=== PATIENT | female | born 2000 | race Hispanic/Latino ===

== ENCOUNTER 2019-05-31 13:04 | Emergency (ER) | payer OTHER, SELFPAY ==
--- OUTSIDE RECORDS SUMMARY | 2019-05-31 13:07 | XMS REPORT | Summary of Care ---
:2000 Author Organization [facility] Address [address] [place] [address] Care Team Providers Name Role Phone Maryam Bennett Primary Care Provider Reason for Visit Reason Comments Care Encounter Details Date Type Department Care Team Description 04/16/2019 [facility] Supervision of high risk in first trimester (Primary Dx); Visit [facility] Nausea and vomiting during [address] [place], [place] [address] [place], [place] [phone] Allergies No Known Allergiesdocumented as of this encounter (statuses as of 04/16/2019) Medications Medication Sig Dispensed Refills Start Date End Date Status PNV 67-iron Take 1 capsule 30 capsule 11 04/16/2019 Active ps-folate no.1-dha by mouth (VITAFOL ULTRA) 29 daily. mg iron- 1 mg-200 mg CapIndications: Supervision of high risk in first trimester proMETHazine 25 mg Take 1 tablet 30 tablet 3 04/16/2019 Active tabletIndications: by mouth every Nausea and 4 (four) hours vomiting during as needed for Nausea and Vomiting (N/V). vit Take by 0 04/16/2019 Discontinued calc,iron,folic mouth. ( VITAMIN ORAL) documented as of this encounter (statuses as of 04/16/2019) Active Problems Problem Noted Date Rubella non-immune status, antepartum 03/20/2019 Susceptible to varicella (non-immune), currently 03/20/2019 BMI 21.0-21.9, adult 03/19/2019 Supervision of high risk in first trimester 03/19/2019 Estimated Date of Delivery Comments Yes 11/01/2019 Based on last menstrual period of 01/25/2019 (Exact Date) documented as of this encounter (statuses as of 04/16/2019) Immunizations Name Administration Dates Next Due Influenza Virus Vaccine Quad .5 mL IM 6+ MO 03/19/2019 documented as of this encounter Social History Tobacco Use Types Packs/Day Years Used Date Never Smoker Smokeless Tobacco: Never Used Alcohol Use Drinks/Week oz/Week Comments Never Alcohol Habits Answer Date Recorded How often do you have a drink containing alcohol? Never 03/19/2019 How many drinks containing alcohol do you have on a typical Not asked day when you are drinking? How often do you have six or more drinks on one occasion? Not asked Estimated Date of Delivery Comments Yes 11/01/2019 Based on last menstrual period of 01/25/2019 (Exact Date) Sex Assigned at Date Recorded Not on file Job Start Date Occupation Industry Not on file Not on file Not on file Travel History Travel Start Travel End No recent travel history available. documented as of this encounter Last Filed Vital Signs Vital Sign Reading Time Taken Comments Blood Pressure 111/65 04/16/2019 9:43 AM INTERN RETAIL Pulse 83 04/16/2019 9:43 AM INTERN RETAIL Temperature - - Respiratory Rate 16 04/16/2019 9:43 AM INTERN RETAIL Oxygen Saturation - - Inhaled Oxygen Concentration - - Weight 52.8 kg (116 lb 6 oz) 04/16/2019 9:43 AM INTERN RETAIL Height 154.9 cm (5' 1") 04/16/2019 9:43 AM INTERN RETAIL Body Mass Index 21.99 04/16/2019 9:43 AM INTERN RETAIL documented in this encounter Progress Notes Maryam Bennett, DIRECTOR OF BROADCAST - 04/16/2019 9:30 AM CST Chief complaint: Chief Complaint Patient presents with Care HPI Loida Oakes is a 18 year old female is a @ 11w4d here for visit. Patient's last menstrual period was 01/25/2019 (exact date). Estimated Date of Delivery: 11/01/19 Pt complains of daily nausea and vomiting, was taking a medication from [place] but not helping. She is taking PNV. She does not yet endorse FM. She denies any ctx/cramping, VB , LOF, FREY, visual disturbance, vaginal discharge or dysuria. She denies any foreign travel. She also denies any physical, sexual or emotional abuse. Histories OB History Para Term AB Living 1 SAB TAB Ectopic Multiple Live Births # Outcome Date GA Lbr Aaron/2nd Weight Sex Delivery Anes PTL Lv 1 Current No past medical history on file. Family History Problem Relation Age of Onset No Significant Medical Problems Mother High cholesterol Father No Significant Medical Problems Sister No Significant Medical Problems Brother No Significant Medical Problems Maternal Aunt No Significant Medical Problems Maternal Uncle No Significant Medical Problems Paternal Aunt No Significant Medical Problems Paternal Uncle No Significant Medical Problems Maternal Grandmother No Significant Medical Problems Maternal Grandfather No Significant Medical Problems Paternal Grandmother No Significant Medical Problems Paternal Grandfather Family Status Relation Name Status Mo Alive Fa Alive Sis Alive Bro Alive MAunt Alive MUnc Alive PAunt Alive PUnc Alive MGMo Alive MGFa Alive PGMo Alive PGFa Alive No past surgical history on file. Social History Socioeconomic History Marital status: Single Spouse name: Not on file Number of children: Not on file Years of education: Not on file Highest education level: Not on file Occupational History Not on file Social Needs Financial resource strain: Not on file Food insecurity: Worry: Not on file Inability: Not on file Transportation needs: Medical: Not on file Non-medical: Not on file Tobacco Use Smoking status: Never Smoker Smokeless tobacco: Never Used Substance and Sexual Activity Alcohol use: Never Frequency: Never Drug use: Never Sexual activity: Yes Partners: Male control/protection: None Comment: last sexual intercourse 03/14/2019 Lifestyle Physical activity: Days per week: Not on file Minutes per session: Not on file Stress: Not on file Relationships Social connections: Talks on phone: Not on file Gets together: Not on file Attends samaritan service: Not on file Active member of club or organization: Not on file Attends meetings of clubs or organizations: Not on file Relationship status: Not on file Intimate partner violence: Fear of current or ex partner: Not on file Emotionally abused: Not on file Physically abused: Not on file Forced sexual activity: Not on file Other Topics Concern Not on file Social History Narrative Sikh preference is none. Patient lives with partner. Patient has 1 cat, partner does litter box. Social History Substance and Sexual Activity Sexual Activity Yes Partners: Male control/protection: None Comment: last sexual intercourse 03/14/2019 Labs No new labs and I have reviewed the patient's labs. Radiology Radiology pending. Allergies Loida has No Known Allergies. Medications Loida has a current medication list which includes the following prescription(s) : pnv 67-iron ps-folate no.1-dha and promethazine. Review of Systems Constitutional: Negative for appetite change, fatigue and fever. Eyes: Negative for visual disturbance. Respiratory: Negative. Cardiovascular: Negative for palpitations and leg swelling. Gastrointestinal: Positive for nausea and vomiting. Negative for abdominal pain , constipation and diarrhea. Genitourinary: Negative. Negative for dysuria, vaginal bleeding, vaginal discharge and pelvic pain. Musculoskeletal: Negative. Skin: Negative for rash. Neurological: Negative for dizziness, light-headedness and headaches. Psychiatric/Behavioral: Negative. BP 111/65 (BP Location: Right arm, Patient Position: Sitting, BP CUFF SIZE: Adult Medium) | Pulse 83 | Resp 16 | Ht 5' 1" (1.549 m) | Wt 116 lb 6 oz ( 52.8 kg) | LMP 01/25/2019 (Exact Date) | BMI 21.99 kg/m Pregravid BMI: 20.8 Physical Exam Vitals reviewed. Constitutional: She is oriented to person, place, and time. She appears well- developed and well-nourished. See flowsheet Cardiovascular: No peripheral edema present. Pulmonary/Chest: Normal inspiratory effort. Abdominal: Abdomen is soft. Neuro/Psychiatric: She has a normal mood and affect. She is oriented to person, place, and time. Skin: Skin normal. Assessment/Plan 1. Supervision of high risk in first trimester 11w4d Dating and NT scan next week - POCT URINALYSIS W SPECIFIC GRAVITY - PNV 67-iron ps-folate no.1-dha (VITAFOL ULTRA) 29 mg iron- 1 mg-200 mg Cap; Take 1 capsule by mouth daily. Dispense: 30 capsule; Refill: 11 2. Nausea and vomiting during Home remedies reviewed and Rx sent. Instructed to take OTC vitamin B6 and doxylamine BID. Only take promethazine PRN for breakthrough N/V. - proMETHazine 25 mg tablet; Take 1 tablet by mouth every 4 (four) hours as needed for Nausea and Vomiting (N/V). Dispense: 30 tablet; Refill: 3 Return to clinic in 4 weeks. Reviewed patient instructions and provided printed copy. at 11w4d This visit did not involve counseling and coordination that comprised more than 50% of the visit time. documented in this encounter Plan of Treatment Date Type Specialty Care Team Description 04/24/2019 Engine Cowling Installer Visit Maternal Medicine 04/24/2019 Engine Cowling Installer Visit [facility]/Pedi, [facility] 05/14/2019 Routine Visit [facility] Maryam Bennett FNP [address] [place] [address] Health Maintenance Due Date Last Done Comments WELL CARE VISIT: 12-21 YEARS 2011 (yearly) HPV VACCINES (1 - Female 2-dose 03/09/2020 Postponed from 07/09/2010 series) ( or ) MENINGOCOCCAL B VACCINES (1 of 2 03/18/2020 Postponed from 07/09/2009 - Risk Bexsero 2-dose series) ( or ) CHLAMYDIA SCREENING 03/19/2020 03/19/2019 DTaP,Tdap,and Td Vaccines (1 - 03/19/2020 Postponed from 07/09/2010 Tdap) (Alternative Guidelines) INFLUENZA VACCINE Completed 03/19/2019 MENINGOCOCCAL VACCINE Aged Out No longer eligible based on patient's age to complete this topic PNEUMOCOCCAL 0-64 YEARS COMBINED Aged Out No longer eligible based on SERIES patient's age to complete this topic VARICELLA VACCINES Discontinued documented as of this encounter Procedures Procedure Name Priority Date/Time Associated Diagnosis Comments POCT URINALYSIS Routine 04/16/2019 9:48 AM Supervision of high Results for this INTERN RETAIL risk in procedure are in first trimester the results section. documented in this encounter Results POCT URINALYSIS W SPECIFIC GRAVITY (04/16/2019 9:48 AM INTERN RETAIL) POCT U SP GRAV . 1.005 - 1.025 mg/dl POCT PH U . 5 - 8 mg/dl POCT U LEUK EST . Negative - Negative POCT U NIT . Negative - Negative POCT U PROT trace Negative - Negative POCT U GLU neg Negative - Negative POCT U KETONE . Negative - Negative POCT U UROBILI . 0.2 - 1 mg/dl POCT U BILI . Negative - Negative POCT U BLD . Negative - Negative POCT U COLOR POCT U APPEAR Specimen Urine - URINE, CLEAN CATCH documented in this encounter Visit Diagnoses Diagnosis Supervision of high risk in first trimester - Primary Unspecified high-risk Nausea and vomiting during documented in this encounter Insurance Payer Benefit Plan / Subscriber ID Effective Dates Phone Address Type Group [facility] xxxxxxxxx 2019-Present Medicaid COMM PLAN - MANAGED MEDICAID ([place]) Appt [address] [place] [address] documented as of this encounter
--- OUTSIDE RECORDS SUMMARY | 2019-05-31 13:07 | XMS REPORT | Summary of Care ---
:1999 Author Organization [facility] Address [address] [place] [address] Care Team Providers Name Role Phone Maryam Bennett Primary Care Provider Reason for Visit Reason Comments LAB WORK Encounter Details Date Type Department Care Team Description 04/24/2019 Tavern Car Attendant Visit [facility] Chapito Stoddard MD [address] [place] [address] Genetic screening [facility]/Pedi, Pea-Rmchp (Primary Dx) [address] [place] [address] Allergies No Known Allergiesdocumented as of this encounter (statuses as of 04/24/2019) Medications Medication Sig Dispensed Refills Start Date End Date Status PNV 67-iron ps-folate Take 1 capsule by 30 capsule 11 04/16/2019 Active no.1-dha (VITAFOL mouth daily. ULTRA) 29 mg iron- 1 mg-200 mg CapIndications: Supervision of high risk in first trimester proMETHazine 25 mg Take 1 tablet by 30 tablet 3 04/16/2019 Active tabletIndications: mouth every 4 Nausea and vomiting (four) hours as during needed for Nausea and Vomiting (N/V). documented as of this encounter (statuses as of 04/24/2019) Active Problems Problem Noted Date Rubella non-immune status, antepartum 03/20/2019 Susceptible to varicella (non-immune), currently 03/20/2019 BMI 21.0-21.9, adult 03/19/2019 Supervision of high risk in first trimester 03/19/2019 Estimated Date of Delivery Comments Yes 11/01/2019 Based on last menstrual period of 01/25/2019 (Exact Date) documented as of this encounter (statuses as of 04/24/2019) Immunizations Name Administration Dates Next Due Influenza [...] of this encounter Last Filed Vital Signs Not on filedocumented in this encounter Plan of Treatment Date Type Specialty Care Team Description 05/14/2019 Routine Visit [facility] Maryam Bennett, SPECIAL EDUCATION PROFESSOR [address] [place] [address] [phone] Name Type Priority Associated Diagnoses Order Schedule FIRST TRIMESTER TRISOMY SCRN LAB Routine Genetic screening Ordered: 2019 Health Maintenance Due Date Last Done Comments HPV VACCINES (1 - Female 2-dose 03/09/2020 [...] to complete this topic VARICELLA VACCINES Discontinued WELL CARE VISIT: 12-21 YEARS Discontinued (yearly) documented as of this encounter Results Not on filedocumented in this encounter Visit Diagnoses Diagnosis Genetic screening - Primary Other genetic screening documented in this encounter Insurance Payer Benefit Plan / Subscriber ID Effective Dates Phone Address Type Group [facility] xxxxxxxxx 2019-Present Medicaid COMM PLAN - MANAGED MEDICAID documented as of this encounter
--- OUTSIDE RECORDS SUMMARY | 2019-05-31 13:07 | XMS REPORT | Summary of Care ---
:1999 Author Organization [facility] Address [address] [place] [address] Care Team Providers Name Role Phone Maryam Bennett [facility] Primary Care Provider Reason for Visit Reason Comments Other dentist medical clearance letter Encounter Details Date Type Department Care Team Description 05/13/2019 Telephone [facility]- Maryam Bennett, Other (dentist medical [facility] clearance letter) [address] [facility] [address] [place], [place] [id number] Allergies No Known Allergiesdocumented as of this encounter (statuses as of 05/14/2019) Medications Medication Sig Dispensed Refills Start Date [...] as of this encounter (statuses as of 05/14/2019) Active Problems Problem Noted Date Rubella non-immune status, antepartum 03/20/2019 Susceptible to varicella (non-immune), currently 03/20/2019 BMI 21.0-21.9, adult 03/19/2019 Supervision of high risk in second trimester 03/19/2019 Estimated Date of Delivery Comments Yes 11/01/2019 Based on last menstrual period of 01/25/2019 (Exact Date) documented as of this encounter (statuses as of 05/14/2019) Immunizations Name Administration Dates Next Due Influenza [...] filedocumented in this encounter Plan of Treatment Health Maintenance Due Date Last Done Comments [...] Results Not on filedocumented in this encounter Insurance Payer Benefit Plan / Subscriber ID Effective Dates Phone Address Type Group [facility] xxxxxxxxx 2019-Present Medicaid COMM PLAN - MANAGED MEDICAID documented as of this encounter
--- OUTSIDE RECORDS SUMMARY | 2019-05-31 13:07 | XMS REPORT | Summary of Care ---
:1999 Author Organization [facility] Address [address] [place] [address] Care Team Providers Name Role Phone Maryam Bennett Primary Care Provider Reason for Visit Reason Comments LAB WORK Encounter Details Date Type Department Care Team Description 04/24/2019 Squadron Worker Visit [facility] Chapito Stoddard MD [address] [place] [address] Genetic screening [facility]/Pedi, Pea-Rmchp (Primary Dx) [address] [place] [address] Allergies No Known Allergiesdocumented as [...] 05/14/2019 Routine Visit [facility] Maryam Bennett, BODY WORK AUTO TRIMMER [address] [place] [address] [phone] Name Type Priority Associated Diagnoses Date/Time FIRST TRIMESTER TRISOMY LAB Routine Genetic screening 04/24/2019 11:38 AM COIL INSPECTOR SCRN Health Maintenance Due Date Last Done Comments [...] ID Effective Dates Phone Address Type Group [facility] xxxxxxxxx 2019-Present Medicaid COMM PLAN - MANAGED MEDICAID (Home) Appt [address] [place] [address] documented as of this encounter
--- OUTSIDE RECORDS SUMMARY | 2019-05-31 13:08 | XMS REPORT | Summary of Care ---
:1999 Author Organization [facility] Address [address] [place] [address] Care Team Providers Name Role Phone Maryam Bennett Primary Care Provider Reason for Referral (Routine) Status Reason Specialty Diagnoses / Referred By Referred To Procedures Contact Contact New Request Maternal Diagnoses Supervision of high risk in second trimester Maryam Bennett Medicine Procedures CONSULT MATERNAL MEDICINE ULTRASOUND Preferred Location: [facility] [address] [address] Reason for Visit Reason Comments Care Encounter Details Date Type Department Care Team Description 05/14/2019 Routine [facility]- Maryam Bennett Supervision of high risk in second trimester (Primary Dx); Visit [facility] Nausea and vomiting during ; [address] Susceptible to varicella (non-immune), currently ; [place], [place] Rubella non-immune status, antepartum [address] [place], [place] [phone] [address] Allergies No Known Allergiesdocumented as of [...] Sign Reading Time Taken Comments Blood Pressure 103/64 05/14/2019 8:08 AM CABLE SPLICING TECHNICIAN Pulse 83 05/14/2019 8:08 AM CABLE SPLICING TECHNICIAN Temperature 36.4 C (97.6 F) 05/14/2019 8:08 AM CABLE SPLICING TECHNICIAN Respiratory Rate 16 05/14/2019 8:08 AM CABLE SPLICING TECHNICIAN Oxygen Saturation - - Inhaled Oxygen Concentration - - Weight 53.1 kg (117 lb 2 oz) 05/14/2019 8:08 AM CABLE SPLICING TECHNICIAN Height 154.9 cm (5' 1") 05/14/2019 8:08 AM CABLE SPLICING TECHNICIAN Body Mass Index 22.13 05/14/2019 8:08 AM CABLE SPLICING TECHNICIAN documented in this encounter Progress Notes Maryam Bennett FNP - 05/14/2019 8:00 AM CST Chief complaint: Chief Complaint Patient presents with Care HPI Loida Oakes is a 18 year old female is a @ 15w4d here for visit. Patient's last menstrual period was 01/25/2019 (exact date). Estimated Date of Delivery: 11/01/19 Today she denies any complaints or concerns. She is taking PNV. She does not [...] file Gets together: Not on file Attends congregational service: Not on file Active member of [...] Concern Not on file Social History Narrative Episcopalian preference is none. Patient lives with partner. Patient has 1 cat, partner does litter box. Social History Substance and Sexual Activity Sexual Activity Yes Partners: Male control/protection: None Comment: last sexual intercourse 03/14/2019 Labs I have reviewed the patient's labs. and Labs are pending. Radiology Radiology pending. Allergies Loida has No Known Allergies. Medications Loida has a current medication list which includes the following prescription(s) : pnv 67-iron ps-folate no.1-dha and promethazine. Review of Systems Constitutional: Negative for appetite change, fatigue and fever. Eyes: Negative for visual disturbance. Respiratory: Negative. Cardiovascular: Negative for palpitations and leg swelling. Gastrointestinal: Positive for nausea. Negative for abdominal pain, constipation , diarrhea and vomiting. Genitourinary: Negative. Negative for dysuria, vaginal bleeding, vaginal discharge and pelvic pain. Musculoskeletal: Negative. Skin: Negative for rash. Neurological: Negative for dizziness, light-headedness and headaches. Psychiatric/Behavioral: Negative. BP 103/64 (BP Location: Right arm, Patient Position: Sitting, BP CUFF SIZE: Adult Medium) | Pulse 83 | Temp 36.4 C (97.6 F) (Oral) | Resp 16 | Ht 5 ' 1" (1.549 m) | Wt 117 lb 2 oz (53.1 kg) | LMP 01/25/2019 (Exact Date) | BMI 22.13 kg/m Pregravid BMI: 20.8 Physical Exam Vitals [...] Assessment/Plan 1. Supervision of high risk in second trimester 15w4d MSAFP today Anatomy scan ordered - CONSULT MATERNAL MEDICINE ULTRASOUND Preferred Location: [place] - [facility]PHA FETOPROTEIN-MATERNAL SER - POCT URINALYSIS W SPECIFIC GRAVITY 2. Nausea and vomiting during Vomiting better, still nauseous Managed with promethazine Gaining weight 3. Susceptible to varicella (non-immune), currently Offer vaccine . 4. Rubella non-immune status, antepartum Offer vaccine . Return to clinic in 4 weeks. Reviewed patient instructions and provided printed copy. at 15w4d This visit did not involve counseling and coordination that comprised more than 50% of the visit time. documented in this encounter Plan of Treatment Date Type Specialty Care Team Description 06/12/2019 Routine Visit [facility] Maryam Bennett FNP [address] [place] [address] [phone] Name Type Priority Associated Diagnoses Order Schedule ALPHA LAB Routine Supervision of high risk Ordered: 05/14/2019 FETOPROTEIN-MATERNAL in second SER trimester Health Maintenance Due Date Last Done Comments [...] Discontinued (yearly) documented as of this encounter Procedures Procedure Name Priority Date/Time Associated Diagnosis Comments POCT URINALYSIS Routine 05/14/2019 8:14 AM Supervision of high Results for this CABLE SPLICING TECHNICIAN risk in procedure are in second trimester the results section. documented in this encounter Results POCT URINALYSIS W SPECIFIC GRAVITY (05/14/2019 8:14 AM CABLE SPLICING TECHNICIAN) POCT U SP GRAV . 1.005 - 1.025 mg/dl POCT PH U . 5 - 8 mg/dl POCT U LEUK EST . Negative - Negative POCT U NIT . Negative - Negative POCT U PROT trace Negative - Negative POCT U GLU negative Negative - Negative POCT U KETONE . Negative - Negative POCT U UROBILI . 0.2 - 1 mg/dl POCT U BILI . Negative - Negative POCT U BLD . Negative - Negative POCT U COLOR POCT U APPEAR Specimen Urine - URINE, CLEAN CATCH documented in this encounter Visit Diagnoses Diagnosis Supervision of high risk in second trimester - Primary Unspecified high-risk Nausea and vomiting during Susceptible to varicella (non-immune), currently Supervision of other high-risk Rubella non-immune status, antepartum Other specified complication, antepartum documented in this encounter Insurance Payer Benefit Plan / Subscriber ID Effective Dates Phone Address Type Group [facility] [place] xxxxxxxxx 2019-Present Medicaid COMM PLAN - MANAGED MEDICAID documented as of this encounter
--- OUTSIDE RECORDS SUMMARY | 2019-05-31 13:08 | XMS REPORT | Summary of Care ---
:2000 Author Organization [facility] Address [address] [place] [address] Care Team Providers Name Role Phone Maryam Bennett Primary Care Provider Reason for Referral (Routine) Status Reason Specialty Diagnoses / Referred By Referred To Procedures Contact Contact New Request Maternal Diagnoses Supervision of high risk in second trimester Maryam Bennett Medicine Procedures CONSULT MATERNAL MEDICINE ULTRASOUND Preferred Location: [facility] [address] [place] [address] Reason for Visit Reason Comments Care Encounter Details Date Type Department Care Team Description 05/14/2019 Routine [facility]- Maryam Bennett Supervision of high risk in second trimester (Primary Dx); Visit [facility] Nausea and vomiting during ; [address] Susceptible to varicella (non-immune), currently ; [place], [place] [address] Rubella non-immune status, antepartum [id number] [place], [place] [phone] [address] Allergies No Known Allergiesdocumented as of [...] Comments Blood Pressure 103/64 05/14/2019 8:08 AM DINKEY MOTOR OPERATOR Pulse 83 05/14/2019 8:08 AM DINKEY MOTOR OPERATOR Temperature 36.4 C (97.6 F) 05/14/2019 8:08 AM DINKEY MOTOR OPERATOR Respiratory Rate 16 05/14/2019 8:08 AM DINKEY MOTOR OPERATOR Oxygen Saturation - - Inhaled Oxygen Concentration - - Weight 53.1 kg (117 lb 2 oz) 05/14/2019 8:08 AM DINKEY MOTOR OPERATOR Height 154.9 cm (5' 1") 05/14/2019 8:08 AM DINKEY MOTOR OPERATOR Body Mass Index 22.13 05/14/2019 8:08 AM DINKEY MOTOR OPERATOR documented in this encounter Progress Notes Maryam [...] file Gets together: Not on file Attends yazdanism service: Not on file Active member of [...] Concern Not on file Social History Narrative Presybeterian preference is none. Patient lives with partner. [...] - CONSULT MATERNAL MEDICINE ULTRASOUND Preferred Location: [place] - ALPHA FETOPROTEIN-MATERNAL SER - POCT URINALYSIS [...] Routine Visit OB Satellites Maryam Bennett FNP [address] [place] [address] [phone] Name Type Priority Associated Diagnoses Date/Time ALPHA LAB Routine Supervision of high risk 05/14/2019 8:52 AM DINKEY MOTOR OPERATOR FETOPROTEIN-MATERNAL in second SER trimester Health Maintenance [...] AM Supervision of high Results for this DINKEY MOTOR OPERATOR risk in procedure are in second trimester the results section. documented in this encounter Results POCT URINALYSIS W SPECIFIC GRAVITY (05/14/2019 8:14 AM DINKEY MOTOR OPERATOR) POCT U SP GRAV . 1.005 - [...] ID Effective Dates Phone Address Type Group [facility] xxxxxxxxx 2019-Present Medicaid COMM PLAN - MANAGED MEDICAID documented as of this encounter
--- OUTSIDE RECORDS SUMMARY | 2019-05-31 13:08 | XMS REPORT ---
:2000 Author Organization [facility] Address [facility] [place] [address] Care Team Providers Name Role Phone Unavailable Unavailable Unavailable Problems This patient has no known problems. Allergies, Adverse Reactions, Alerts This patient has no known allergies or adverse reactions. Medications This patient has no known medications.
--- OUTSIDE RECORDS SUMMARY | 2019-05-31 13:08 | XMS REPORT | Summary of Care ---
:2000 Author Organization [facility] Address [address] [place] [id number] Care Team Providers Name Role Phone Maryam Bennett Primary Care Provider Reason for Visit Reason Comments Assessment Encounter Details Date Type Department Care Team Description 05/31/2019 Nurse Triage [facility] Paty Hobbs RN Assessment [address] [place] [id number] Allergies No Known Allergiesdocumented as of this encounter (statuses as of 05/31/2019) Medications Medication Sig Dispensed Refills Start Date [...] as of this encounter (statuses as of 05/31/2019) Active Problems Problem Noted Date Rubella non-immune status, antepartum 03/20/2019 Susceptible to varicella (non-immune), currently 03/20/2019 BMI 21.0-21.9, adult 03/19/2019 Supervision of high risk in second trimester 03/19/2019 Estimated Date of Delivery Comments Yes 11/01/2019 Based on last menstrual period of 01/25/2019 (Exact Date) documented as of this encounter (statuses as of 05/31/2019) Immunizations Name Administration Dates Next Due Influenza [...] Description 06/12/2019 Routine Visit OB Satellites Maryam Bennett, STREET SWEEPER OPERATOR [address] [place] [address] [phone] 06/22/2019 Outbound Sales Consultant Visit Maternal Medicine Health Maintenance Due Date Last Done Comments [...] ID Effective Dates Phone Address Type Group [facility] xxxxxxxxx 2019-Present Medicaid COMM PLAN - MANAGED MEDICAID documented as of this encounter
--- NOTE | 2019-05-31 13:50 | EDPHYS ---
Physician Documentation [facility] Name: Loida Oakes Age: 18 yrs Sex: Female : 2000 Arrival Date: 05/31/2019 Time: 13:07 Bed 5 Private MD: ED Physician Lamont Bhatia HPI: 05/30 13:22 This 18 yrs old Female presents to ER via Unassigned with complaints of Cough, kb Chest Pain, body aches. 13:22 The patient or guardian reports cough, that is intermittent, described as moderate, kb with no sputum. Onset: The symptoms/episode began/occurred 2 week(s) ago. Severity of symptoms: At their worst the symptoms were mild, moderate, in the emergency department the symptoms are unchanged. Modifying factors: The symptoms are alleviated by nothing, the symptoms are aggravated by nothing. Associated signs and symptoms: Pertinent positives: chest pain, Pertinent negatives: diarrhea, ear ache, fever, nausea, rhinorrhea, sore throat, vomiting. The patient has not experienced similar symptoms in the past. The patient has not recently seen a physician. Pt reports cough and body aches for 2 weeks, now chest pain. Denies fever. . TREE THINNER: 13:21 LMP 01/23/2019 jl7 13:22 1, 0, Living 0, LMP 01/23/2019 kb Historical: - Allergies: 13:42 No Known Allergies; bp - Home Meds: 13:42 None [Active]; bp - PMHx: 13:42 None; bp - Immunization history:: Adult Immunizations up to date. - Social history:: Smoking status: Patient denies any tobacco usage or history of. ROS: 13:22 Neck: Negative for injury, pain, and swelling, Abdomen/GI: Negative for abdominal pain, kb nausea, vomiting, diarrhea, and constipation, Back: Negative for injury and pain, MS/Extremity: Negative for injury and deformity, Skin: Negative for injury, rash, and discoloration, Neuro: Negative for headache, weakness, numbness, tingling, and seizure. 13:22 Constitutional: Positive for body aches, malaise. 13:22 ENT: Positive for sinus congestion. 13:22 Cardiovascular: Positive for chest pain, Negative for edema, orthopnea, palpitations, paroxysmal nocturnal dyspnea. 13:22 Respiratory: Positive for cough, Negative for dyspnea on exertion, hemoptysis, orthopnea, pleurisy, shortness of breath, sputum production, wheezing. Exam: 13:22 Constitutional: This is a well developed, well nourished patient who is awake, alert, kb and in no acute distress. Head/Face: Normocephalic, atraumatic. ENT: Nares patent. No nasal discharge, no septal abnormalities noted. Tympanic membranes are normal and external auditory canals are clear. Oropharynx with no redness, swelling, or masses, exudates, or evidence of obstruction, uvula midline. Mucous membranes moist. Neck: Trachea midline, no thyromegaly or masses palpated, and no cervical lymphadenopathy. Supple, full range of motion without nuchal rigidity, or vertebral point tenderness. No Meningismus. Chest/axilla: Normal chest wall appearance and motion. Nontender with no deformity. No lesions are appreciated. Cardiovascular: Regular rate and rhythm with a normal S1 and S2. No gallops, murmurs, or rubs. Normal PMI, no JVD. No pulse deficits. Respiratory: Lungs have equal breath sounds bilaterally, clear to auscultation and percussion. No rales, rhonchi or wheezes noted. No increased work of breathing, no retractions or nasal flaring. Abdomen/GI: Soft, non-tender, with normal bowel sounds. No distension or tympany. No guarding or rebound. No evidence of tenderness throughout. Skin: Warm, dry with normal turgor. Normal color with no rashes, no lesions, and no evidence of cellulitis. MS/ Extremity: Pulses equal, no cyanosis. Neurovascular intact. Full, normal range of motion. Neuro: Awake and alert, GCS 15, oriented to person, place, time, and situation. Cranial nerves II-XII grossly intact. Motor strength 5/5 in all extremities. Sensory grossly intact. Cerebellar exam normal. Normal gait. 13:25 ECG was reviewed by the Attending Physician. kb Vital Signs: 13:21 BP 118 / 75; Pulse 88; Resp 17 S; Temp 98.3(O); Pulse Ox 96% on R/A; Pain 2/10; jl7 13:41 BP 115 / 65; Pulse 78; Resp 16; Pulse Ox 98% ; bp MDM: 13:14 Patient medically screened. kb 13:24 Data reviewed: vital signs, nurses notes. Data interpreted: Pulse oximetry: on room air kb is 96 %. Interpretation: normal. 13:49 Counseling: I had a detailed discussion with the patient and/or guardian regarding: the kb historical points, exam findings, and any diagnostic results supporting the discharge/admit diagnosis, radiology results, the need for outpatient follow up, a family practitioner, to return to the emergency department if symptoms worsen or persist or if there are any questions or concerns that arise at home. 05/30 13:20 Order name: Chest Single View XRAY kb 05/30 13:20 Order name: EKG; Complete Time: 13:21 kb 05/30 13:20 Order name: EKG - Nurse/Tech; Complete Time: 13:35 kb 05/30 13:20 Order name: FHT's; Complete Time: 13:42 kb EC: Rate is 77 beats/min. Rhythm is regular. QRS [place] is Normal. NM interval is normal at kb 126 msec. QRS interval is normal at 96 msec. QT interval is normal at 370 msec. Administered Medications: No medications were administered Disposition: 18:08 Co-signature as Attending Physician, Lamont Bhatia MD I agree with the assessment and kdr plan of care. Disposition: 05/31/19 13:50 Discharged to Home. Impression: Cough. - Condition is Stable. - Discharge Instructions: Cough, Adult, [id number]. - Medication Reconciliation Form, Thank You Letter, Antibiotic Education, Prescription Opioid Use form. - Follow up: Emergency Department; When: As needed; Reason: Worsening of condition. Follow up: Private Physician; When: 2 - 3 days; Reason: Recheck today's complaints, Continuance of care, Re-evaluation by your physician. Signatures: Dispatcher [employer] EDFL Sarah Ellison, CORRECTIONS SPECIALIST-C Lamont Urena MD MD kdr Zoltan Contreras RN RN bp Corrections: (The following items were deleted from the chart) 14:01 13:50 05/31/2019 13:50 Discharged to Home. Impression: Cough. Condition is Stable. bp Forms are Medication Reconciliation Form, Thank You Letter, Antibiotic Education, Prescription Opioid Use. Follow up: Emergency Department; When: As needed; Reason: Worsening of condition. Follow up: Private Physician; When: 2 - 3 days; Reason: Recheck today's complaints, Continuance of care, Re-evaluation by your physician. kb
--- NOTE | 2019-05-31 13:50 | ER ---
Nurse's Notes [facility] Name: Loida Oakes Age: 18 yrs Sex: Female : 2000 Arrival Date: 05/31/2019 Time: 13:07 Bed 5 Private MD: Diagnosis: Cough Presentation: 05/30 13:21 Chief complaint: Patient states: cough x 2 weeks, now chest pains with cough and body jl7 aches, denies fever. Coronavirus screen: Patient reports a subjective fever or greater than 100.4F, or cough, or shortness of breath, or difficulty breathing. Patient denies travel on a cruise ship or to a country the [facility] currently lists as an affected area. Patient denies contact with known and/or suspected case of COVID-19. Ebola Screen: No symptoms or risks identified at this time. Initial Sepsis Screen: Does the patient meet any 2 criteria? No. Patient's initial sepsis screen is negative. Does the patient have a suspected source of infection? No. Patient's initial sepsis screen is negative. Risk Assessment: Do you want to hurt yourself or someone else? Patient reports no desire to harm self or others. Onset of symptoms was May 17, 2019. 13:21 Method Of Arrival: Ambulatory [facility] 13:21 Acuity: CURTIS 4 jl7 Triage Assessment: 13:30 General: Appears in no apparent distress. comfortable, Behavior is cooperative, bp appropriate for age, anxious. Pain: Complains of pain in GENERAL MYALGIA. EENT: No deficits noted. Neuro: No deficits noted. Cardiovascular: Rhythm is sinus rhythm. Respiratory: Reports cough that is. GI: No signs and/or symptoms were reported involving the gastrointestinal system. : No signs and/or symptoms were reported regarding the genitourinary system. Derm: No deficits noted. Musculoskeletal: No deficits noted. PROJECT FINANCE ANALYST: 13:21 LMP 01/23/2019 jl7 13:22 1, 0, Living 0, LMP 01/23/2019 kb Historical: - Allergies: 13:42 No Known Allergies; bp - Home Meds: 13:42 None [Active]; bp - PMHx: 13:42 None; bp - Immunization history:: Adult Immunizations up to date. - Social history:: Smoking status: Patient denies any tobacco usage or history of. Screenin:41 Abuse screen: Denies threats or abuse. Denies injuries from another. Nutritional bp screening: No deficits noted. Tuberculosis screening: No symptoms or risk factors identified. Fall Risk None identified. Assessment: 13:30 General: SEE TRIAGE NOTE. bp 14:00 Reassessment: PT D/C HOME AMBULATORY, DX WITH COUGH. bp Vital Signs: 13:21 BP 118 / 75; Pulse 88; Resp 17 S; Temp 98.3(O); Pulse Ox 96% on R/A; Pain 2/10; jl7 13:41 BP 115 / 65; Pulse 78; Resp 16; Pulse Ox 98% ; bp ED Course: 13:07 Patient arrived in ED. as 13:09 Sarah Ellison FNP-C [facility]. kb 13:09 Lamont Bhatia MD is Attending Physician. kb 13:21 Arm band placed on right wrist. jl7 13:22 Zoltan Contreras, RN is Primary Nurse. bp 13:23 Triage completed. jl7 13:41 Patient has correct armband on for positive identification. Bed in low position. Call bp light in reach. Side rails up X2. Pulse ox on. NIBP on. 13:42 Chest Single View XRAY In Process Unspecified. EDMS 13:42 hearttones 157bpm. kj1 13:59 No provider procedures requiring assistance completed. Patient did not have IV access bp during this emergency room visit. Patient maintains SpO2 saturation greater than 95% on room air. Administered Medications: No medications were administered Outcome: 13:50 Discharge ordered by MD. kb 14:00 Discharged to home ambulatory. bp 14:00 Condition: stable 14:00 Discharge instructions given to patient, Instructed on discharge instructions, follow up and referral plans. Demonstrated understanding of instructions, follow-up care. 14:01 Patient left the ED. bp Signatures: Dispatcher [employer] EDMS Sarah Ellison FNP-C FNP-Ckb Martinez, Amelia as Leal, Jahala, RN RN jl7 Zoltan Contreras, RN RN Meg Daniel kj1
[2019-05-31 14:08] VITALS: TEMP 98.3
[2019-05-31 14:09] VITALS: BP 115/65; O2SAT 98
--- NOTE | 2019-05-31 15:42 | RAD REPORT ---
EXAM DESCRIPTION: RAD - Chest Single View - 05/31/2019 1:44 pm CLINICAL HISTORY: shield pt;Cough;Chest pain TECHNIQUE: AP portable chest image was obtained 05/31/2019 1:44 pm . FINDINGS: Lungs are clear. Heart and vasculature are normal. No measurable pleural effusion and no p neumothorax. No acute bony abnormality seen. No acute aortic findings suspected. IMPRESSION: No acute cardiopulmonary process.
--- NOTE | 2019-06-01 07:25 | EKG ---
Test Date: 2019-05-31 Test Time: 13:20:25 Beam Press Operator: SANGITA MEASUREMENT RESULTS: Intervals: Rate: 77 OR: 126 QRSD: 96 QT: 370 QTc: 418 [place]: P: -9 OR: 126 QRS: 70 T: 31 INTERPRETIVE STATEMENTS: Normal sinus rhythm Low voltage QRS Incomplete right bundle branch block Borderline ECG No previous ECG available for comparison Electronically Signed On 06-01-19 07:24:42 CDT by Scottie Goetz
== END 2019-05-31 14:01 | disposition home or self-care (01) ==
LOC: ER 13:04
DX: R05 Cough (principal)
CPT/HCPCS: 71045; 93005; 99284

== ENCOUNTER 2019-11-20 03:06 | Emergency (ER) | payer OTHER ==
--- OUTSIDE RECORDS SUMMARY | 2019-11-20 03:09 | XMS REPORT | Summary of Care ---
:2000 Author Organization [facility] Address [address] [place] [address] Care Team Providers Name Role Phone Maryam Bennett Primary Care Provider Reason for Visit Reason Comments Care Encounter Details Date Type Department Care Team Description 09/17/2019 [facility] pervision of high risk in third trimester (Primary Dx); Visit [facility] Susceptible to varicella (non-immune), c urrently ; [address] Rubella non-immune status, antepartum; Street [address] Anemia of mother in , [place] [address] [phone] Allergies No Known Allergiesdocumented as of this encounter (statuses as of 09/17/2019) Medications Medication Sig Dispensed Refills Start Date End Date Status PNV 67-iron ps-folate Take 1 capsule by 30 capsule 11 0 Active no.1-dha (VITAFOL mouth daily. ULTRA) 29 mg iron- 1 mg-200 mg CapIndications: Supervision of high risk in first trimester proMETHazine 25 mg Take 1 tablet by 30 tablet 3 04/16/2019 Active tabletIndications: mouth every 4 Nausea and vomiting (four) hours as during needed for Nausea and Vomiting (N/V). ascorbic acid, vitamin Take 1 tablet by 90 tablet 2 08/04/2019 Active C, 500 mg mouth 3 (three) tabletIndications: times daily. Anemia of mother in , antepartum ferrous sulfate 325 mg Take 1 tablet by 60 tablet 3 08/04/2019 Active (65 mg iron) mouth 2 (two) tabletIndications: times daily. Anemia of mother in , antepartum documented as of this encounter (statuses as of 09/17/2019) Active Problems Problem Noted Date Anemia of mother in , antepartum 08/04/2019 Rubella non-immune status, antepartum 03/20/2019 Susceptible to varicella (non-immune), currently pregn ant 03/20/2019 BMI 21.0-21.9, adult 03/19/2019 Supervision of high risk in third trimester 03/19/2019 Estimated Date of Delivery Comments Yes 11/01/2019 Based on last menstr ual period of 01/25/2019 (Exact Date) documented as of this encounter (statuses as of 09/17/2019) Resolved Problems Problem Noted Date Resolved Date Vaginal yeast infection 06/10/2019 09/01/2019 documented as of this encounter (statuses as of 09/17/2019) Immunizations Name Administration Dates Next Due Influenza Virus Vaccine Quad .5 mL IM 6+ MO 03/19/2019 TDAP 08/18/2019 documented as of this encounter Social History [...] six or more drinks on one occasion? No t asked Estimated Date of Delivery Comments Yes 11/01/2019 Based on last menstr ual period of 01/25/2019 (Exact Date) Sex Assigned at Date Recorded Not on file Job Start Date Occupation Industry Not on file Not on file Not on file Travel History Travel Start Travel End No recent travel history available. COVID-19 Exposure Response Date Recorded In the last month, have you been in contact with No / Unsure 09/17/2019 1:37 PM CDT someone who was confirmed or suspected to have Coronavirus / COVID-19? documented as of this encounter Last Filed Vital Signs Vital Sign Reading Time Taken Comments Blood Pressure 113/64 09/17/2019 1:38 PM CDT Pulse 94 09/17/2019 1:38 PM CDT Temperature 36.5 C (97.7 F) 09/17/2019 1:38 PM CDT Respiratory Rate 16 09/17/2019 1:38 PM CDT Oxygen Saturation - - Inhaled Oxygen Concentration - - Weight 61.2 kg (135 lb) 09/17/2019 1:38 PM CDT Height 154.9 cm (5' 1") 09/17/2019 1:38 PM CDT Body Mass Index 25.51 09/17/2019 1:38 PM CDT documented in this encounter Progress Notes Maryam Bennett, COMPUTER SYSTEM TECHNICIAN - 09/17/2019 1:30 PM CDT Chief complaint: Chief Complaint Patient presents with Care HPI Loida Oakes is a 19 year old female is a @ 33w4d here for visit. Patient's last menstrual period was 01/25/2019 (exact date). Estimated Date of Delivery: 11/01/19 Today she denies any complaints or concerns. She is taking PNV. She reports good FM. She denies any ctx/cramping, VB, LOF, FREY, visual disturbance, vaginal discharge or dysuria. She denies any foreign travel. She also denies any physical, sexual or emotional abuse. Histories OB History Para Term AB Living 1 SAB TAB Ectopic Multiple Live Births # Outcome Date GA Lbr Aaron/2nd Weight Sex Delivery Anes PTL Lv 1 Current Past Medical History: Diagnosis Date Anemia of mother in , antepartum 08/04/2019 Vaginal yeast infection 06/10/2019 Family History Problem Relation Age of Onset [...] file Gets together: Not on file Attends rastafarian service: Not on file Active member of [...] Concern Not on file Social History Narrative Baptist preference is none. Patient lives with partner. Patient has 1 cat, partner does litter box. Social History Substance and Sexual Activity Sexual Activity Yes Partners: Male control/protection: None Comment: last sexual intercourse 03/14/2019 Labs No new labs and I have reviewed the patient's labs. Radiology No new radiology. Allergies Loida has No Known Allergies. Medications Loida has a current medication list which includes the following prescription(s): ascorbic acid (vitamin c), ferrous sulfate, pnv 67-iron ps- folate no.1-dha, and promethazine. Review of Systems Constitutional: Negative for appetite change, fatigue and fever. Eyes: Negative for visual disturbance. Respiratory: Negative. Cardiovascular: Negative for palpitations and leg swelling. Gastrointestinal: Negative for abdominal pain, constipation, diarrhea, nausea and vomiting. Genitourinary: Negative. Negative for dysuria, vaginal bleeding, vaginal discharge and pelvic pain. Musculoskeletal: Negative. Skin: Negative for rash. Neurological: Negative for dizziness, light-headedness and headaches. Psychiatric/Behavioral: Negative. BP 113/64 (BP Location: Right arm, Patient Position: Sitting, BP CUFF SIZE: Adult Medium) | Pulse 94 | Temp 36.5 C (97.7 F) (Oral) | Resp 16 | Ht 5' 1" (1.549 m) | Wt 135 lb (61.2 kg) | LMP 01/25/2019 (Exact Date) | BMI 25.51 kg/m Pregravid BMI: 20.8 Physical Exam Vitals [...] Assessment/Plan 1. Supervision of high risk in third trimester 33w4d Labor precautions, kick counts and PIH warnings reviewed. 2. Susceptible to varicella (non-immune), currently Offer vaccine . 3. Rubella non-immune status, antepartum Offer vaccine . 4. Anemia of mother in , antepartum Continue iron therapy, eat iron rich foods. Return to clinic in 2 weeks. Reviewed patient instructions and provided printed copy. at 33w4d This visit did not involve counseling and coordination that comprised more than 50% of the visit time. documented in this encounter Plan of Treatment Date Type Specialty Care Team Description 09/29/2019 Routine Visit OB Satellites Maryam Bennett FNP [address], [place] [address] [phone] Health Maintenance Due Date Last Done Comments INFLUENZA VACCINE (#1) 2019 03/19/2019 HPV VACCINES (1 - Female 2-dose 03/09/2020 Postponed from 07/09/2010 series) ( or Martha astfeeding) MENINGOCOCCAL B VACCINES (1 of 2 03/18/2020 Postponed from 07/09/2009 - Risk Bexsero 2-dose series) (P regnant or ) CHLAMYDIA SCREENING 03/19/2020 03/19/2019 Depression Screening 09/16/2020 09/17/2019 DTaP,Tdap,and Td Vaccines (2 - 08/17/2029 08/18/2019 Td) MENINGOCOCCAL VACCINE Aged Out No longer eligible based on patient's age to complete this topic PNEUMOCOCCAL 0-64 YEARS COMBINED Aged Out No longer eligible based on SERIES patient's age to complete this topic VARICELLA VACCINES Discontinued WELL CARE VISIT: 12-21 YEARS Discontinued (yearly) documented as of this encounter Results Not on filedocumented in this encounter Visit Diagnoses Diagnosis Supervision of high risk in th ird trimester - Primary Unspecified high-risk Susceptible to varicella (non-immune), c urrently Supervision of other high-risk Rubella non-immune status, antepartum Other specified complication, antepartum Anemia of mother in , antepartu m Anemia, antepartum documented in this encounter Insurance Payer Benefit Plan / Subscriber ID Effective Dates Phone Addre ss Type Group [facility] xxxxxxxxx 2019-Present Medicaid COMM PLAN - MANAGED MEDICAID [id number] documented as of this encounter
--- OUTSIDE RECORDS SUMMARY | 2019-11-20 03:09 | XMS REPORT | Summary of Care ---
:2000 Author Organization [facility] Address [address] [place] [address] Care Team Providers Name Role Phone Maryam Bennett Primary Care Provider Reason for Visit Reason Comments Care Encounter Details Date Type Department Care Team Description [facility] pervision of high risk in third trimester (Primary Dx); Visit CONOR Hull Anemia of mother in , antepartu m; [address] Rubella non-immune status, antepartum; [address] Susceptible to varicella (non-immune), c urrently ; [place], [place] Supervision of high risk in second trimester [phone] Allergies No Known Allergiesdocumented as of this encounter (statuses as of 09/01/2019) Medications Medication Sig Dispensed Refills Start Date [...] as of this encounter (statuses as of 09/01/2019) Active Problems Problem Noted Date Anemia of mother in , antepartum 08/04/2019 Rubella non-immune status, antepartum 03/20/2019 Susceptible to varicella (non-immune), currently pregn ant 03/20/2019 BMI 21.0-21.9, adult 03/19/2019 Supervision of high risk in third trimester 03/19/2019 Estimated Date of Delivery Comments Yes 11/01/2019 Based on last menstr ual period of 01/25/2019 (Exact Date) documented as of this encounter (statuses as of 09/01/2019) Resolved Problems Problem Noted Date Resolved Date Vaginal yeast infection 06/10/2019 09/01/2019 documented as of this encounter (statuses as of 09/01/2019) Immunizations Name Administration Dates Next Due Influenza [...] been in contact with No / Unsure 09/01/2019 1:49 PM CDT someone who was confirmed or suspected to have Coronavirus / COVID-19? documented as of this encounter Last Filed Vital Signs Vital Sign Reading Time Taken Comments Blood Pressure 110/65 09/01/2019 1:50 PM CDT Pulse 87 09/01/2019 1:50 PM CDT Temperature 36.1 C (97 F) 09/01/2019 1:50 PM CDT Respiratory Rate 16 09/01/2019 1:50 PM CDT Oxygen Saturation - - Inhaled Oxygen Concentration - - Weight 59.1 kg (130 lb 4 oz) 09/01/2019 1:50 PM CDT Height 154.9 cm (5' 1") 09/01/2019 1:50 PM CDT Body Mass Index 24.61 09/01/2019 1:50 PM CDT documented in this encounter Progress Notes Maryam Bennett, CHIMNEY SUPERVISOR BRICK - 09/01/2019 1:30 PM CDT Chief complaint: Chief Complaint Patient presents with Care HPI Loida Oakes is a 19 year old female is a @ 31w2d here for visit. Patient's last menstrual period [...] file Gets together: Not on file Attends moravian service: Not on file Active member of [...] Concern Not on file Social History Narrative Taoism preference is none. Patient lives with partner. [...] dizziness, light-headedness and headaches. Psychiatric/Behavioral: Negative. BP 110/65 (BP Location: Right arm, Patient Position: Sitting, BP CUFF SIZE: Adult Medium) | Pulse 87 | Temp 36.1 C (97 F) (Oral) | Resp 16 | Ht 5' 1" (1.549 m) | Wt 130 lb 4 oz (59.1 kg) | LMP 01/25/2019 (Exact Date) | BMI 24.61 kg/m Pregravid BMI: 20.8 Physical Exam Vitals [...] Supervision of high risk in third trimester 31w2d Labor precautions, kick counts and PIH warnings reviewed. - POCT URINALYSIS W SPECIFIC GRAVITY 2. Anemia of mother in , antepartum Continue iron therapy, eat iron rich foods. 3. Rubella non-immune status, antepartum Offer vaccine . 4. Susceptible to varicella (non-immune), currently Offer vaccine . Return to clinic in 2 weeks. Reviewed patient instructions and provided printed copy. at 31w2d This visit did not involve counseling and coordination that comprised more than 50% of the visit time. documented in this encounter Plan of Treatment Date Type Specialty Care Team Description 09/17/2019 Routine Visit OB Satellites Maryam Bennett FNP [address] [place], [place] [address] [phone] Health Maintenance Due Date Last Done Comments HPV VACCINES (1 - Female 2-dose 03/09/2020 Postponed from 07/09/2010 series) ( or Martha astfeeding) MENINGOCOCCAL B VACCINES (1 of 2 03/18/2020 Postponed from 07/09/2009 - Risk Bexsero 2-dose series) (P regnant or ) CHLAMYDIA SCREENING 03/19/2020 03/19/2019 Depression Screening 08/31/2020 09/01/2019 DTaP,Tdap,and Td Vaccines (2 - 08/17/2029 08/18/2019 Td) INFLUENZA VACCINE Completed 03/19/2019 MENINGOCOCCAL VACCINE Aged Out No longer eligible based on patient's age to complete this topic PNEUMOCOCCAL 0-64 YEARS COMBINED Aged Out No longer eligible based on SERIES patient's age to complete this topic VARICELLA VACCINES Discontinued WELL CARE VISIT: 12-21 YEARS Discontinued (yearly) documented as of this encounter Procedures Procedure Name Priority Date/Time Associated Diagnosis Comme nts POCT URINALYSIS Routine 09/01/2019 1:51 PM Supervision of [facility] Results for this CDT risk in procedure are in second trimester the results section. documented in this encounter Results POCT URINALYSIS W SPECIFIC GRAVITY (09/01/2019 1:51 PM CDT) Pathologist Sig nature POCT U SP GRAV . 1.005 - [...] th ird trimester - Primary Unspecified high-risk Anemia of mother in , antepartu m Anemia, antepartum Rubella non-immune status, antepartum Other specified complication, antepartum Susceptible to varicella (non-immune), c urrently Supervision of other high-risk Supervision of high risk in se cond trimester Unspecified high-risk documented in this encounter Insurance Payer Benefit Plan / Subscriber ID Effective Dates Phone Addre [facility] xxxxxxxxx 2019-Present Medicaid COMM PLAN - MANAGED MEDICAID (Home) Appt [id number] [place] [id number] documented as of this encounter
--- OUTSIDE RECORDS SUMMARY | 2019-11-20 03:09 | XMS REPORT | Continuity of Care Document ---
:1999 Author Organization [facility] t Address [address] [place] [address] Care Team Providers Name Role Phone Kristal Parmar Attending Clinician [phone] Elen JIANG Attending Clinician Unavailable Drake Bennett DO Attending Clinician Pob1, Care Clinic Attending Clinician Unavailable Donald PERDOMO, N Attending Clinician Gabino FRIEND M Attending Clinician Kamlesh SHEA Attending Clinician Myah FRIEND E Attending Clinician Doctor Unassigned, Name Attending Clinician Unavailable Latoya Machuca MD Attending Clinician Gabino FRIEND M Admitting Clinician Latoya Machuca MD Admitting Clinician Problems This patient has no known problems. Allergies, Adverse Reactions, Alerts This patient has no known allergies or adverse reactions. Medications This patient has no known medications. Procedures This patient has no known procedures. Encounters Start End Encounter Admission Attending Care Care Encounter Source Date/Time Date/Time Type Type Clinicians Facility Department ID 2019-11-17 2019-11-17 Routine ELLA Doyle [id number] 11:12:34 11:48:33 Kristal Pineda DIRECT MAIL CLERK [id number] Visit REGIONAL [id number] MATERNAL [id number] & CHILD [address] [place] [address] 2019-11-14 2019-11-14 Telephone Natalie Myrick [id number] 00:00:00 00:00:00 FABIANA [id number] [facility] [id number] [id number] 2019-11-13 2019-11-13 Emergency [facility] [id number] 17:07:00 18:58:00 Reva Juan [place] [id number] [place] [id number] [place] [id number] 2019-11-13 2019-11-13 Urgent Pob1, Acute [facility] [id number] 16:33:29 17:03:37 [facility] [id number] [place] [id number] Professio [id number] nal [address] 2019-11-13 2019-11-13 Telephone [facility] [id number] 00:00:00 00:00:00 Maryam Gustafson DIRECT MAIL CLERK [id number] [facility] [id number] MATERNAL [id number] & CHILD [address] [facility] 2019-10-26 2019-10-29 [facility] JACQUES Lloyd [id number] 09:18:00 14:46:00 Encounter Fatuma JUNG [id number] [facility] [id number] [id number] 2019-10-27 2019-10-27 Anesthesia Adarsh Whit[place] 1.2.840.11 [id number] 00:00:00 19:21:00 Allison Glasgow 350.1.1 3.10 [facility] [id number] [id number] 2019-10-26 2019-10-26 Orders Doctor HANNA [id number] 00:00:00 00:00:00 Only Unassigned, FABIANA 350.1.13.10 [place] [facility] [id number] [id number] 2019-10-25 2019-10-[address] [facility] [id number] 19:01:00 22:05:00 Encounter Maulik JUNG 350.1.13.[address] [facility] 4.2.7.2.686 [id number] 2019-10-22 2019-10-22 Routine [facility] [id number] 10:14:21 10:36:42 Maryam N DIRECT MAIL CLERK [id number] Visit REGIONAL 4.2.7.2.686 MATERNAL [id number] & CHILD [address] [facility] 2019-10-15 2019-10-15 Routine [facility] [id number] 12:45:04 13:16:29 Maryam N DIRECT MAIL CLERK [id number] Visit REGIONAL 4.2.7.2.686 MATERNAL [id number] & CHILD [address] [facility] 2019-10-06 2019-10-06 Routine [facility] [id number] 10:47:57 11:02:57 Maryam N DIRECT MAIL CLERK [id number] Visit REGIONAL 4.2.7.2.686 MATERNAL [id number] & CHILD [address] [facility] 2019-09-29 2019-09-29 Routine [facility] [id number] 13:48:56 14:21:30 Maryam N DIRECT MAIL CLERK [id number] Visit REGIONAL 4.2.7.2.686 MATERNAL [id number] & CHILD [address] [facility] 2019-09-17 2019-09-17 Routine [facility] [id number] 13:35:55 13:52:46 Maryam N DIRECT MAIL CLERK [id number] Visit REGIONAL 4.2.7.2.686 MATERNAL [id number] & CHILD [address] [facility] 2019-09-01 2019-09-01 Routine [facility] [id number] 13:37:27 14:03:47 Maryam N DIRECT MAIL CLERK [id number] Visit REGIONAL [id number] MATERNAL [id number] & CHILD [address] [facility] 2019-08-04 2019-08-04 Telephone ELLA Doyle [id number] 00:00:00 00:00:00 Kristal Pineda DIRECT MAIL CLERK [id number] [facility] [id number] MATERNAL [id number] & CHILD [address] [facility] Results This patient has no known results.
--- OUTSIDE RECORDS SUMMARY | 2019-11-20 03:09 | XMS REPORT | Summary of Care ---
:1999 Author Organization [facility] Address [address] [place] [address] Care Team Providers Name Role Phone Maryam Bennett Primary Care Provider Reason for Visit Reason Comments Care Encounter Details Date Type Department Care Team Description 10/15/2019 Routine [facility]- Maryam Bennett pervision of high risk in third trimester (Primary Dx); Visit CONOR Hull Susceptible to varicella (non-immune), c urrently ; [address] Rubella non-immune status, antepartum; [address] Group B streptococcal carriage complicat ing ; [place], [place], [place] Anemia of mothe r in , antepartum [id number] Allergies No Known Allergiesdocumented as of this encounter (statuses as of 10/15/2019) Medications Medication Sig Dispensed Refills Start Date [...] as of this encounter (statuses as of 10/15/2019) Active Problems Problem Noted Date Group B streptococcal carriage complicating 10/08/2019 Anemia of mother in , antepartum 08/04/2019 Rubella non-immune status, antepartum 03/20/2019 Susceptible to varicella (non-immune), currently pregn ant 03/20/2019 BMI 21.0-21.9, adult 03/19/2019 Supervision of high risk in third trimester 03/19/2019 Estimated Date of Delivery Comments Yes 11/01/2019 Based on last menstr ual period of 01/25/2019 (Exact Date) documented as of this encounter (statuses as of 10/15/2019) Resolved Problems Problem Noted Date Resolved Date Vaginal yeast infection 06/10/2019 09/01/2019 documented as of this encounter (statuses as of 10/15/2019) Immunizations Name Administration Dates Next Due Influenza [...] Assigned at Date Recorded Not on file COVID-19 Exposure Response Date Recorded In the last month, have you been in contact with No / Unsure 10/15/2019 1:08 PM CDT someone who was confirmed or suspected to have Coronavirus / COVID-19? documented as of this encounter Last Filed Vital Signs Vital Sign Reading Time Taken Comments Blood Pressure 113/65 10/15/2019 1:09 PM CDT Pulse 87 10/15/2019 1:09 PM CDT Temperature 37.1 C (98.8 F) 10/15/2019 1:09 PM CDT Respiratory Rate 16 10/15/2019 1:09 PM CDT Oxygen Saturation - - Inhaled Oxygen Concentration - - Weight 64.6 kg (142 lb 8 oz) 10/15/2019 1:09 PM CDT Height 154.9 cm (5' 1") 10/15/2019 1:09 PM CDT Body Mass Index 26.93 10/15/2019 1:09 PM CDT documented in this encounter Progress Notes Maryam Bennett, ASSET LIABILITY ANALYST - 10/15/2019 12:45 PM CDT Chief complaint: Chief Complaint Patient presents with Care HPI Loida Oakes is a 19 year old female is a @ 37w4d here for visit. Patient's last menstrual period [...] Financial resource strain: Not on file Food insecurity Worry: Not on file Inability: Not on file Transportation needs Medical: Not on file Non-medical: Not on file Tobacco Use Smoking status: Never Smoker Smokeless tobacco: Never Used Substance and Sexual Activity Alcohol use: Never Frequency: Never Drug use: Never Sexual activity: Yes Partners: Male control/protection: None Comment: last sexual intercourse 03/14/2019 Lifestyle Physical activity Days per week: Not on file Minutes per session: Not on file Stress: Not on file Relationships Social connections Talks on phone: Not on file Gets together: Not on file Attends yazidism service: Not on file Active member of club or organization: Not on file Attends meetings of clubs or organizations: Not on file Relationship status: Not on file Intimate partner violence Fear of current or ex partner: Not on file Emotionally abused: Not on file Physically abused: Not on file Forced sexual activity: Not on file Other Topics Concern Not on file Social History Narrative Roman Catholic preference is none. Patient lives with partner. Patient has 1 cat, partner does litter box. Social History Substance and Sexual Activity Sexual Activity Yes Partners: Male control/protection: None Comment: last sexual intercourse 03/14/2019 Labs No new labs, I have reviewed the patient's labs. and Routine Visit on 10/06/2019 Component Date Value WBC 10/06/2019 8.49 RBC 10/06/2019 3.89* HGB 10/06/2019 12.3 HCT 10/06/2019 36.1 MCV 10/06/2019 92.8 MCH 10/06/2019 31.6 MCHC 10/06/2019 34.1 RDW-SD 10/06/2019 46.9 RDW-CV 10/06/2019 13.9 PLT 10/06/2019 297 MPV 10/06/2019 9.7 NRBC/100 WBC 10/06/2019 0.0 NRBC x10^3 10/06/2019 <0.01 GRAN MAT (NEUT) % 10/06/2019 68.8 IMM GRAN % 10/06/2019 0.40 LYMPH % 10/06/2019 23.3 MONO % 10/06/2019 6.5 EOS % 10/06/2019 0.6 BASO % 10/06/2019 0.4 GRAN MAT x10^3(ANC) 10/06/2019 5.85 IMM GRAN x10^3 10/06/2019 0.03 LYMPH x10^3 10/06/2019 1.98 MONO x10^3 10/06/2019 0.55 EOS x10^3 10/06/2019 0.05 BASO x10^3 10/06/2019 0.03 Group B Streptococcus by* 10/06/2019 Positive* CoV-2 IgG 10/06/2019 Negative C. trachomatis Nucleic A* 10/06/2019 Negative N. gonorrhoeae Nucleic A* 10/06/2019 Negative POCT U SP GRAV 10/06/2019 . POCT PH U 10/06/2019 . POCT U LEUK EST 10/06/2019 . POCT U NIT 10/06/2019 . POCT U PROT 10/06/2019 trace POCT U GLU 10/06/2019 neg POCT U KETONE 10/06/2019 . POCT U UROBILI 10/06/2019 . POCT U BILI 10/06/2019 . POCT U BLD 10/06/2019 . Routine Visit on 09/29/2019 Component Date Value POCT U SP GRAV 09/29/2019 . POCT PH U 09/29/2019 . POCT U LEUK EST 09/29/2019 . POCT U NIT 09/29/2019 . POCT U PROT 09/29/2019 trace POCT U GLU 09/29/2019 negative POCT U KETONE 09/29/2019 . POCT U UROBILI 09/29/2019 . POCT U BILI 09/29/2019 . POCT U BLD 09/29/2019 . Radiology No new radiology. Allergies Loida has [...] dizziness, light-headedness and headaches. Psychiatric/Behavioral: Negative. BP 113/65 (BP Location: Right arm, Patient Position: Sitting, BP CUFF SIZE: Adult Medium) | Pulse 87 | Temp 37.1 C (98.8 F) (Oral) | Resp 16 | Ht 5' 1" (1.549 m) | Wt 142 lb 8 oz (64.6 kg) | LMP 01/25/2019 (Exact Date) | BMI 26.93 kg/m Pregravid BMI: 20.80 Physical Exam Vitals reviewed. Constitutional: She is oriented to person, place, and time. She appears well- developed and well-nourished. See flowsheet Cardiovascular: No peripheral edema present. Pulmonary/Chest: Normal inspiratory effort. Abdominal: Abdomen is soft. Neuro/Psychiatric: She has a normal mood and affect. She is oriented to person, place, and time. Skin: Skin normal. Assessment/Plan 1. Supervision of high risk in third trimester 37w4d Labor precautions, kick counts and PIH warnings reviewed. IOL scheduled for 10/25/19 - POCT URINALYSIS W SPECIFIC GRAVITY 2. Susceptible to varicella (non-immune), currently Offer vaccine . 3. Rubella non-immune status, antepartum Offer vaccine . 4. Group B streptococcal carriage complicating Intrapartum antibiotic prophylaxis 5. Anemia of mother in , antepartum Continue iron therapy, eat iron rich foods. Return to clinic in 1 weeks. Reviewed patient instructions and provided printed copy. at 37w4d This visit did not involve counseling and coordination that comprised more than 50% of the visit time. documented in this encounter Plan of Treatment Date Type Specialty Care Team Description 10/22/2019 Routine Visit OB Satellites Maryam Bennett FNP [address] [address] [phone] Health Maintenance Due Date Last Done Comments INFLUENZA VACCINE (#1) 2019 03/19/2019 HPV VACCINES (1 - 2-dose 03/09/2020 Postpon ed from series) 07/09/2010 (Preg nant or ) MENINGOCOCCAL B VACCINES (1 03/18/2020 Post poned from of 2 - Risk Bexsero 2-dose 07/09 ( or series) ) CHLAMYDIA SCREENING 10/05/2020 10/06/2019, 03/19/2019 Depression Screening 10/14/2020 10/15/2019 DTaP,Tdap,and Td Vaccines (2 08/17/2029 08/18/2019 - Td) MENINGOCOCCAL VACCINE Aged Out No longer eligible based on patient's age to complete this to [facility] PNEUMOCOCCAL 0-64 YEARS Aged Out No longe r eligible based COMBINED SERIES on patient's age to complete this to [facility] VARICELLA VACCINES Discontinued WELL CARE VISIT: 12-21 YEARS Discontinued (yearly) documented as of this encounter Procedures Procedure Name Priority Date/Time Associated Diagnosis Comme nts POCT URINALYSIS Routine 10/15/2019 1:10 PM Supervision of jesse sampson Results for this CDT risk in procedure are in third trimester the results section. documented in this encounter Results POCT URINALYSIS W SPECIFIC GRAVITY (10/15/2019 1:10 PM CDT) Pathologist Sig nature POCT U [...] non-immune status, antepartum Other specified complication, antepartum Group B streptococcal carriage complicat ing Anemia of mother in , antepartu m Anemia, antepartum documented in this encounter Insurance Payer Benefit Plan / Subscriber ID Effective Dates Phone Addre ss Type Group [facility] [id number] 2019-Present Medicaid COMM PLAN - MANAGED MEDICAID [id number] 1 documented as of this encounter
--- OUTSIDE RECORDS SUMMARY | 2019-11-20 03:09 | XMS REPORT | Summary of Care ---
:1999 Author Organization [facility] Address [address] [place] [address] Care Team Providers Name Role Phone Maryam Bennett Primary Care Provider Reason for Visit Reason Comments Care Encounter Details Date Type Department Care Team Description 09/29/2019 Routine [facility]- Maryam Bennett pervision of high risk in third trimester (Primary Dx); Visit CONOR Hull Susceptible to varicella (non-immune), c urrently ; [address] Rubella non-immune status, antepartum; [address] Anemia of mother in , [place] [address] [phone] Allergies No Known Allergiesdocumented as of this encounter (statuses as of 09/29/2019) Medications Medication Sig Dispensed Refills Start Date [...] as of this encounter (statuses as of 09/29/2019) Active Problems Problem Noted Date Anemia of mother in , antepartum 08/04/2019 Rubella non-immune status, antepartum 03/20/2019 Susceptible to varicella (non-immune), currently pregn ant 03/20/2019 BMI 21.0-21.9, adult 03/19/2019 Supervision of high risk in third trimester 03/19/2019 Estimated Date of Delivery Comments Yes 11/01/2019 Based on last menstr ual period of 01/25/2019 (Exact Date) documented as of this encounter (statuses as of 09/29/2019) Resolved Problems Problem Noted Date Resolved Date Vaginal yeast infection 06/10/2019 09/01/2019 documented as of this encounter (statuses as of 09/29/2019) Immunizations Name Administration Dates Next Due Influenza [...] been in contact with No / Unsure 09/29/2019 2:07 PM CDT someone who was confirmed or suspected to have Coronavirus / COVID-19? documented as of this encounter Last Filed Vital Signs Vital Sign Reading Time Taken Comments Blood Pressure 110/70 09/29/2019 2:07 PM CDT Pulse 86 09/29/2019 2:07 PM CDT Temperature 36.4 C (97.6 F) 09/29/2019 2:07 PM CDT Respiratory Rate 16 09/29/2019 2:07 PM CDT Oxygen Saturation - - Inhaled Oxygen Concentration - - Weight 62.7 kg (138 lb 2 oz) 09/29/2019 2:07 PM CDT Height 154.9 cm (5' 1") 09/29/2019 2:07 PM CDT Body Mass Index 26.1 09/29/2019 2:07 PM CDT documented in this encounter Progress Notes Maryam Bennett, MEDIA LAW FACULTY MEMBER - 09/29/2019 1:45 PM CDT Chief complaint: Chief Complaint Patient presents with Care HPI Loiad Oakes is a 19 year old female is a @ 35w2d here for visit. Patient's last menstrual period [...] Alive MGFa Alive PGMo Alive PGFa Alive History reviewed. No pertinent surgical history. Social History Socioeconomic History Marital status: Single [...] file Gets together: Not on file Attends religion service: Not on file Active member of [...] Concern Not on file Social History Narrative Druze preference is none. Patient lives with partner. [...] dizziness, light-headedness and headaches. Psychiatric/Behavioral: Negative. BP 110/70 (BP Location: Right arm, Patient Position: Sitting, BP CUFF SIZE: Adult Medium) | Pulse 86 | Temp 36.4 C (97.6 F) (Oral) | Resp 16 | Ht 5' 1" (1.549 m) | Wt 138 lb 2 oz (62.7 kg) | LMP 01/25/2019 (Exact Date) | BMI 26.10 kg/m Pregravid BMI: 20.8 Physical Exam Vitals [...] Supervision of high risk in third trimester 35w2d Labor precautions, kick counts and PIH warnings reviewed. Risks and benefits of 39 week IOL discussed. Pt agrees to 39 week IOL, appointment requested. - POCT URINALYSIS W SPECIFIC GRAVITY - GROUP B STREPTOCOCCUS BY PCR; Future - CBC WITH DIFF; Future - SARS-COV-2 IGG; Future 2. Susceptible to varicella (non-immune), currently Offer vaccine . 3. Rubella non-immune status, antepartum Offer vaccine . 4. Anemia of mother in , antepartum Continue iron therapy, eat iron rich foods. Return to clinic in 1 weeks. Reviewed patient instructions and provided printed copy. at 35w2d This visit did not involve counseling and coordination that comprised more than 50% of the visit time. documented in this encounter Plan of Treatment Date Type Specialty Care Team Description 10/06/2019 Routine Visit OB Satellites Maryam Bennett FNP [address] [place], [place] [address] [phone] Name Type Priority Associated Diagnoses Order S chedule GROUP B STREPTOCOCCUS BY LAB Routine Supervision of h igh risk Expected: 10/06/2019, PCR in third Expires: 09/28/2020 trimester CBC WITH DIFF LAB Routine Supervision of high risk Ex pected: 10/06/2019, in third Expires: 09/28/2020 trimester SARS-COV-2 IGG LAB Routine Supervision of high risk E xpected: 10/06/2019, in third Expires: 09/28/2020 trimester Health Maintenance Due Date Last Done [...] Associated Diagnosis Comme nts POCT URINALYSIS Routine 09/29/2019 2:08 PM Supervision of jesse sampson Results for this CDT risk in procedure are in third trimester the results section. documented in this encounter Results POCT URINALYSIS W SPECIFIC GRAVITY (09/29/2019 2:08 PM CDT) Pathologist Sig nature POCT U [...] Effective Dates Phone Addre ss Type Group [facility] xxxxxxxxx 2019-Present Medicaid COMM PLAN - MANAGED MEDICAID [id number] documented as of this encounter
--- OUTSIDE RECORDS SUMMARY | 2019-11-20 03:09 | XMS REPORT | Summary of Care ---
:2000 Author Organization [facility] Address [address] [place] [address] Care Team Providers Name Role Phone Maryam Bennett Primary Care Provider Reason for Visit Reason Comments Care Encounter Details Date Type Department Care Team Description 10/06/2019 Routine [facility]MP- Maryam Bennett pervision of high risk in third trimester (Primary Dx); Visit CONOR Hull Susceptible to varicella (non-immune), c urrently ; [address] Rubella non-immune status, antepartum; [address] Anemia of mother in , [place] [phone] Allergies No Known Allergiesdocumented as of this encounter (statuses as of 10/06/2019) Medications Medication Sig Dispensed Refills Start Date [...] as of this encounter (statuses as of 10/06/2019) Active Problems Problem Noted Date Anemia of mother in , antepartum 08/04/2019 Rubella non-immune status, antepartum 03/20/2019 Susceptible to varicella (non-immune), currently pregn ant 03/20/2019 BMI 21.0-21.9, adult 03/19/2019 Supervision of high risk in third trimester 03/19/2019 Estimated Date of Delivery Comments Yes 11/01/2019 Based on last menstr ual period of 01/25/2019 (Exact Date) documented as of this encounter (statuses as of 10/06/2019) Resolved Problems Problem Noted Date Resolved Date Vaginal yeast infection 06/10/2019 09/01/2019 documented as of this encounter (statuses as of 10/06/2019) Immunizations Name Administration Dates Next Due Influenza [...] been in contact with No / Unsure 10/06/2019 11:07 AM CDT someone who was confirmed or suspected to have Coronavirus / COVID-19? 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 Patient's last menstrual period [...] file Gets together: Not on file Attends latter-day service: Not on file Active member of [...] Concern Not on file Social History Narrative Gnosticism preference is none. Patient lives with partner. Patient has 1 cat, partner does litter box. Social History Substance and Sexual Activity Sexual Activity Yes Partners: Male control/protection: None Comment: last sexual intercourse 03/14/2019 Labs Labs are pending. Radiology No new radiology. Allergies Loida has [...] dizziness, light-headedness and headaches. Psychiatric/Behavioral: Negative. BP 106/71 (BP Location: Right arm, Patient Position: Sitting, BP CUFF SIZE: Adult Medium) | Pulse 91 | Temp 36.7 C (98 F) (Oral) | Resp 16 | Ht 5' 1" (1.549 m) | Wt 140 lb 6 oz (63.7 kg) | LMP 01/25/2019 (Exact Date) | BMI 26.52 kg/m Pregravid BMI: 20.8 Physical Exam Vitals [...] Supervision of high risk in third trimester 36w2d 36 week labs today Labor precautions, kick counts and PIH warnings reviewed. IOL scheduled for 10/25/19, instructions given - CBC WITH DIFF - GROUP B STREPTOCOCCUS BY PCR - SARS-COV-2 IGG 2. Susceptible to varicella (non-immune), currently Offer vaccine . 3. Rubella non-immune status, antepartum Offer vaccine . 4. Anemia of mother in , antepartum Continue iron therapy, eat iron rich foods. Return to clinic in 1 weeks. Reviewed patient instructions and provided printed copy. at 36w2d This visit did not involve counseling and coordination that comprised more than 50% of the visit time. documented in this encounter Plan of Treatment Name Type Priority Associated Diagnoses Date/Ti me CBC WITH DIFF LAB Routine Supervision of high risk 10:56 AM in third CDT trimester GROUP B STREPTOCOCCUS BY LAB Routine Supervision of h igh risk 10/06/2019 10:57 AM PCR in third CDT trimester SARS-COV-2 IGG LAB Routine Supervision of high risk 0 10/06/2019 10:56 AM in third CDT trimester GC & CHLAMYDIA AMPLIFIED LAB Routine Supervision of h igh risk 10/06/2019 10:57 AM ASSAY in third CDT trimester Health Maintenance Due Date Last Done Comments INFLUENZA VACCINE (#1) 2019 03/19/2019 HPV VACCINES (1 - Female 2-dose 03/09/2020 Postponed from 07/09/2010 series) ( or Martha astfeeding) MENINGOCOCCAL B VACCINES (1 of 2 03/18/2020 Postponed from 07/09/2009 - Risk Bexsero 2-dose series) (P regnant or ) CHLAMYDIA SCREENING 03/19/2020 03/19/2019 Depression Screening 10/05/2020 10/06/2019 DTaP,Tdap,and Td Vaccines (2 - 08/17/2029 08/18/2019 [...] Associated Diagnosis Comme nts POCT URINALYSIS Routine 10/06/2019 11:08 AM Supervision of jesse sampson Results for this CDT risk in procedure are in third trimester the results section. documented in this encounter Results POCT URINALYSIS W SPECIFIC GRAVITY (10/06/2019 11:08 AM CDT) Pathologist Sig nature POCT U SP [...] Effective Dates Phone Addre ss Type Group [facility] xxxxxxxxx 2019-Present Medicaid COMM PLAN - MANAGED MEDICAID [id number] 1 documented as of this encounter
--- OUTSIDE RECORDS SUMMARY | 2019-11-20 03:10 | XMS REPORT | Summary of Care ---
:2000 Author Organization [facility] Address [address] [place] [address] Care Team Providers Name Role Phone Maryam Bennett Primary Care Provider Reason for Visit Reason Comments Care Encounter Details Date Type Department Care Team Description 10/22/2019 Routine [facility]- Maryam Bennett pervision of high risk in third trimester (Primary Dx); Visit CONOR Hull Susceptible to varicella (non-immune), c urrently ; [address] Rubella non-immune status, antepartum; [address] Group B streptococcal carriage complicat ing ; [place], [place], [place] Anemia of mothe r in , antepartum [id number] Allergies No Known Allergiesdocumented as of this encounter (statuses as of 10/22/2019) Medications Medication Sig Dispensed Refills Start Date [...] as of this encounter (statuses as of 10/22/2019) Active Problems Problem Noted Date Group B [...] as of this encounter (statuses as of 10/22/2019) Resolved Problems Problem Noted Date Resolved Date Vaginal yeast infection 06/10/2019 09/01/2019 documented as of this encounter (statuses as of 10/22/2019) Immunizations Name Administration Dates Next Due Influenza [...] been in contact with No / Unsure 10/22/2019 10:28 AM CDT someone who was confirmed or suspected to have Coronavirus / COVID-19? 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 Patient's last menstrual period [...] file Gets together: Not on file Attends presybeterian service: Not on file Active member of [...] Concern Not on file Social History Narrative Latter-Day preference is none. Patient lives with partner. [...] dizziness, light-headedness and headaches. Psychiatric/Behavioral: Negative. BP 119/79 (BP Location: Right arm, Patient Position: Sitting, BP CUFF SIZE: Adult Medium) | Pulse 91 | Temp 36.4 C (97.5 F) (Oral) | Resp 16 | Ht 5' (1.524 m) | Wt 144 lb 6 oz (65.5 kg) | LMP103/27/2018 (Exact Date) | BMI 28.20 kg/m Pregravid BMI: 21.48 Physical Exam Vitals reviewed. Constitutional: She is oriented to person, place, and time. She appears well- developed and well-nourished. See flowsheet Cardiovascular: No peripheral edema present. Pulmonary/Chest: Normal inspiratory effort. Abdominal: Abdomen is soft. Neuro/Psychiatric: She has a normal mood and affect. She is oriented to person, place, and time. Skin: Skin normal. Assessment/Plan 1. Supervision of high risk in third trimester 38w4d Labor precautions, kick counts and PIH warnings reviewed. IOL scheduled for 10/25/19, instructions reviewed - POCT URINALYSIS W SPECIFIC GRAVITY 2. Susceptible to varicella (non-immune), currently Offer vaccine . 3. Rubella non-immune status, antepartum Offer vaccine . 4. Group B streptococcal carriage complicating Intrapartum antibiotic prophylaxis 5. Anemia of mother in , antepartum Continue iron therapy, eat iron rich foods. Return to clinic in 4 weeks. Discussed treatment options. Reviewed patient instructions and provided printed copy. at 38w4d This visit did not involve counseling and coordination that comprised more than 50% of the visit time. documented in this encounter Plan of Treatment Health [...] on patient's age to complete this to [facility] PNEUMOCOCCAL 0-64 YEARS Aged Out No longe r eligible based COMBINED SERIES on patient's age to complete this to pic VARICELLA VACCINES Discontinued WELL CARE VISIT: 12-21 YEARS Discontinued (yearly) documented as of this encounter Procedures Procedure Name Priority Date/Time Associated Diagnosis Comme nts POCT URINALYSIS Routine 10/22/2019 10:29 AM Supervision of jesse sampson Results for this CDT risk in procedure are in third trimester the results section. documented in this encounter Results POCT URINALYSIS W SPECIFIC GRAVITY (10/22/2019 10:29 AM CDT) Pathologist Sig nature POCT U [...] Effective Dates Phone Addre ss Type Group [facility] [id number] 2019-Present Medicaid COMM PLAN - MANAGED MEDICAID [id number] 1 documented as of this encounter"
--- OUTSIDE RECORDS SUMMARY | 2019-11-20 03:10 | XMS REPORT | Summary of Care ---
:2000 Author Organization [facility] - [facility] Address [address] [place] [id number] Care Team Providers Name Role Phone Maryam Bennett Primary Care Provider Reason for Referral (Routine) Status Reason Specialty Diagnoses / Referred By Referred To Procedures Contact Contact New Request OB Satellites Diagnoses Rubella non-immune status, antepartum Susceptible to varicella (non-immune), currently Anemia of mother in , antepartum Group B streptococcal carriage complicating 39 weeks gestation of Dori Fontana FNP Indication for c are or intervention in labor or delivery (spontaneous vaginal delivery) Single liveborn delivered vaginally Laceration, obstetrical, first degree BMI 21.0-21.9, adult [address] Supervision of high risk pre gnancy in third trimester ST Procedures DISCHARGE FOLLOW-UP: [place] [address] Reason for Visit Auth/Cert Status Reason Specialty Diagnoses / Referred By Contact Refe rred To Contact Procedures Obstetrics Diagnoses ipi J3c [address] [place] [phone] Phone: Fax: Encounter Details Date Type Department Care Team Description 10/26/2019 - Hospital Encounter Mother Baby Unit Fatuma Lloyd (spontaneous 10/29/2019 (JYasir Roman MD vaginal delivery) [address] [place] [address] [id number] [place] [id number] [phone] Allergies No Known Allergiesdocumented as of this encounter (statuses as of 10/29/2019) Medications Medication Sig Dispensed Refills Start Date End Date Status docusate calcium 240 mg Take 1 capsule 60 capsule 1 10/29/2019 Active capsuleIndications: by mouth once Rubella non-immune daily as needed status, antepartum, for Susceptible to Constipation. varicella (non-immune), currently , Anemia of mother in , antepartum, Group B streptococcal carriage complicating , 39 weeks gestation of , Indication for care or intervention in labor or delivery, (spontaneous vaginal delivery), Single liveborn infant delivered vaginally, Laceration, obstetrical, first degree, BMI 21.0-21.9, adult, Supervision of high risk in third trimester ibuprofen 600 mg Take 1 tablet by 60 tablet 1 10/29/2019 Active tabletIndications: mouth every 6 Rubella non-immune (six) hours as status, antepartum, needed (Pain). Susceptible to Take with food varicella (non-immune), or milk. currently , Anemia of mother in , antepartum, Group B streptococcal carriage complicating , 39 weeks gestation of , Indication for care or intervention in labor or delivery, (spontaneous vaginal delivery), Single liveborn infant delivered vaginally, Laceration, obstetrical, first degree, BMI 21.0-21.9, adult, Supervision of high risk in third trimester Iron Fum & P-FA-Vit B & Take 1 capsule 30 capsule 2 10/29/2019 Active C No.9 (INTEGRA PLUS) by mouth daily. 125 mg iron- 1 mg CapIndications: Rubella non-immune status, antepartum, Susceptible to varicella (non-immune), currently , Anemia of mother in , antepartum, Group B streptococcal carriage complicating , 39 weeks gestation of , Indication for care or intervention in labor or delivery, (spontaneous vaginal delivery), Single liveborn delivered vaginally, Laceration, obstetrical, first degree, BMI 21.0-21.9, adult, Supervision of high risk in third trimester documented as of this encounter (statuses as of 10/29/2019) Active Problems Problem Noted Date Laceration, obstetrical, minor 10/28/2019 (spontaneous vaginal delivery) 10/27/2019 Single liveborn delivered vaginally 10/27/2019 Chorioamnionitis 10/27/2019 Indication for care or intervention in labor or delive ry-IOL 10/26/2019 39 weeks gestation of 10/25/2019 Group B streptococcal carriage complicating 10/08/2019 Anemia of mother in , antepartum 08/04/2019 Rubella non-immune status, antepartum 03/20/2019 Susceptible to varicella (non-immune), currently pregn ant 03/20/2019 BMI 21.0-21.9, adult 03/19/2019 Supervision of high risk in third trimester 03/19/2019 Estimated Date of Delivery Comments Yes 11/01/2019 Based on last menstr ual period of 01/25/2019 (Exact Date) documented as of this encounter (statuses as of 10/29/2019) Resolved Problems Problem Noted Date Resolved Date Vaginal yeast infection 06/10/2019 09/01/2019 documented as of this encounter (statuses as of 10/29/2019) Immunizations Name Administration Dates Next Due HPV9 10/29/2019 Influenza Virus Vaccine Quad .5 mL IM 6+ MO 03/19/2019 MMR 10/29/2019 TDAP 08/18/2019 Varicella (varivax)(chicken pox) 10/29/2019 documented as of this encounter Social History [...] been in contact with No / Unsure 10/26/2019 9:16 AM CDT someone who was confirmed or suspected to have Coronavirus / COVID-19? documented as of this encounter Last Filed Vital Signs Vital Sign Reading Time Taken Comments Blood Pressure 115/72 10/29/2019 7:40 AM CDT Pulse 67 10/29/2019 7:40 AM CDT Temperature 36 C (96.8 F) 10/29/2019 7:40 AM CDT Respiratory Rate 18 10/29/2019 7:40 AM CDT Oxygen Saturation 98% 10/29/2019 7:40 AM CDT Inhaled Oxygen Concentration - - Weight 65.8 kg (145 lb) 10/26/2019 10:24 AM CDT Height 154.9 cm (5' 1") 10/26/2019 9:47 AM CDT Body Mass Index 27.4 10/26/2019 9:47 AM CDT documented in this encounter Discharge Summaries Dori Fontana FNP - 10/29/2019 9:10 AM CDT DISCHARGE SUMMARY - VAGINAL DELIVERY Date of Service: 10/29/2019 ADMIT DATE: 10/26/2019 DISCHARGE DATE: 10/29/2019 ATTENDING MD: Fatuma Lloyd MD ATTENDING MD AT DISCHARGE: Munira Boyce MD CNM/ELECTRIC LINEMAN: CONOR Mercer PCP: Maryam Bennett REASON FOR ADMISSION Admit For: IOL at term gestation For: care for FINAL DIAGNOSIS: (the reason, after study, for admitting the patient to the hospital) S/P Vaginal Delivery SECONDARY DIAGNOSIS: (any diagnosis that, on this admission, required clinical evaluation, therapeutic treatment, diagnostic procedures, extended hospital stay, or additional nursing care/monitoring): chorioamnionitis Principal Problem: (spontaneous vaginal delivery) (10/27/2019) POA: No Assessment: Delivered Plan: Routine course Active Problems: 39 weeks gestation of (10/25/2019) POA: Yes Indication for care or intervention in labor or delivery-IOL (10/26/2019) POA: Yes Single liveborn delivered vaginally (10/27/2019) POA: No Assessment: Infant 3600g with 8/9 Apgars Plan: Infant in care of pediatricians Chorioamnionitis (10/27/2019) POA: No Assessment: fever during labor / immediate PP last episode of 99.6 F at 2029 on 10/27/2019,no antibiotic coverage, afebrile since then Plan: encouraged ambulation , increase PO hydration , analgesics PRN. D/C home today. Laceration, obstetrical, minor (10/28/2019) POA: No Assessment: no labial edema, no hematoma. Plan: adelfo care, use adelfo bottle with/ warm water after each void , Ibuprofen for pain / inflammation Rubella non-immune status, antepartum (03/20/2019) POA: Yes Assessment: Rubella non-immune Plan: Pt aware she needs the rubella vaccine prior to d/c home. Pt also aware to avoid for3 months post vaccine. Susceptible to varicella (non-immune), currently (03/20/2019) POA: Yes Assessment: Varicella non-immune Plan: Pt aware she needs the varicella vaccine prior to d/c home and # 2 vaccine at 4-6wks pp. Pt also aware to avoid for 3 months post vaccine. Group B streptococcal carriage complicating (10/08/2019) POA: Yes Assessment: GBS carrier Plan: Treated adequately with antibiotics during labor. COVID-19 SCREEN: Recent history of travel to a high-risk area: No Recent sick contacts before or during admission: No Contact with a proven COVID-19 case: No Symptoms of COVID-19, which include fever, dry cough, fatigue, difficulty breathing: No This patient is considered low risk for COVID-19 infection COVID -19 Screening test on arrival: negative PRINCIPAL PROCEDURE: Cephalic vaginal delivery ADDITIONAL PROCEDURES: Past Surgical History: Procedure Laterality Date INSERT CERVICAL DILATOR 10/25/2019 Episiotomy/laceration repair and EFM SIGNIFICANT LAB/X-RAYS: HCT (%) Date Value 10/06/2019 36.1 HGB (g/dL) Date Value 10/06/2019 12.3 07/31/2019 10.2 (L) Rubella: not immune Varicella: not immune Type and Screen: B and RH postive S: Patient has no complaints. Patient denies sob, vertigo, headache, blurred vision, epigastric pain orpalpitations. Patient reports voiding without difficulty with good urine output. Patient reports ambulating unassisted without difficulty. Tolerating diet, passing flatus. Breast/bottlefeeding. Happy with new baby.No evidence of depression. Patient desires discharge home today. Contraception: Undecided, review at PP visit. O: General: Alert and oriented. No apparent distress Affect appropriate Heart: regular rate and rhythm. Lungs: good inspiratory effort to inspections, lungs clear to auscultation bilaterally. Breast: soft Abdomen: soft non-tender. Fundus: firm at umbilicus Perineum: rt. Labial laceration, intact, no edema, hematoma or abcess Lochia: scant rubra, no clots Extremities: no edema bilaterally. No calf tenderness BP: (94-115)/(62-74) Temp: [35.7 C (96.2 F)-36.4 C (97.5 F)] Temp source: Oral (10/28 0740) Pulse: [59-70] Resp: [18] SpO2: [97 %-99 %] Height: -- Weight: -- BMI (calculated): -- P: Routine instructions reviewed w/ pt. Precautions re: bleed/injury, depression, infection & DVT's reviewed. She was instructed to return to ER if Temp greater than 100.4F, headache unresolved with pain medications, visual disturbances including double orblurry vision, seeing spots, upper abdominal pain, or vaginal bleeding greater than 1 pad per hour. Pelvic rest 6 weeks, and no heavy lifting. DIET: Regular diet ACTIVITY: as tolerated, no strenuous activity and no heavy lifting DISCHARGE MEDICATIONS: There are no discharge medications for this patient. WOUND CARE: .Encouraged appropriate pericare DISCHARGE: Discharged: Home CONDITION AT TIME OF DISCHARGE: Stable FOLLOW-UP APPOINTMENT: With Aidan LEDEZMA in 3 week(s) CONOR Mercer Associated attestation - Munira Boyce MD - 10/29/2019 2:08 PM CDTAgree with CNM's note and plan of management.documented in this encounter Discharge Instructions Amaya Srivastava RN - 10/29/2019 Patient Discharge Instructions Instrucciones para el paciente al karli de sean Rubella: Rubella screen IgG (no units) Date Value 03/19/2019 Negative Hgb/HCT: HGB (g/dL) Date Value 10/06/2019 12.3 , HCT (%) Date Value 10/06/2019 36.1 ABO Type: ABO & RH (no units) Date Value 10/26/2019 B POSITIVE Patient Discharge Instructions Take Home Medications These are medications ordered for you by your healthcare provider. Do not take any other medicationsor supplements unless advised by your healthcare provider. Medicamentos tomados en casa: Estos son medicamentos ordenados por arizmendi proveedor de servicios mdicos. No tome ningn otro medicamento o suplemento a menos que sea aconsejado por arizmendi proveedor. Current Discharge Medication List START taking these medications Details docusate calcium (SURFAK) 240 mg Take 240 mg by mouth once daily as needed for Constipation. Qty: 60 capsule, Refills: 1 Start date: 10/29/2019 Associated Diagnoses: Rubella non-immune status, antepartum; Susceptible to varicella (non-immune),currently ; Anemia of mother in , antepartum; Group B streptococcal carriage complicating ; 39 weeks gestation of ; Indication for care or intervention in labor or del diane; (spontaneous vaginal delivery); Single liveborn infant delivered vaginally; Laceration, obstetrical, first degree; BMI 21.0-21.9, adult; Supervision of high risk in third trimester ibuprofen (IBU) 600 mg Take 600 mg by mouth every 6 (six) hours as needed (Pain). Take with food or milk. Qty: 60 tablet, Refills: 1 Start date: 10/29/2019 Associated Diagnoses: Rubella non-immune status, antepartum; Susceptible to varicella (non-immune),currently ; Anemia of mother in , antepartum; Group B streptococcal carriage complicating ; 39 weeks gestation of ; Indication for care or intervention in labor or del diane; (spontaneous vaginal delivery); Single liveborn delivered vaginally; Laceration, obstetrical, first degree; BMI 21.0-21.9, adult; Supervision of high risk in third trimester Integra Plus 1 capsule Take 1 capsule by mouth daily. Qty: 30 capsule, Refills: 2 Start date: 10/29/2019 Associated Diagnoses: Rubella non-immune status, antepartum; Susceptible to varicella (non-immune),currently ; Anemia of mother in , antepartum; Group B streptococcal carriage complicating ; 39 weeks gestation of ; Indication for care or intervention in labor or del diane; (spontaneous vaginal delivery); Single liveborn delivered vaginally; Laceration, obstetrical, first degree; BMI 21.0-21.9, adult; Supervision of high risk in third trimester Follow-up Appointments/Dina citas: The following appointments have been made for you: Las siguientes citas se hicieron para usted: Provider Place Date Time Follow instructions as indicated below: Siga las instrucciones que se le indican a continuacin: Discharge Orders Regular Diet; Texture: Regular. Texture Regular. Diabetic: No Discharge Condition - GOOD Discharge Condition: GOOD Discharge Activity: - Ambulate with Pelvic Rest x 6 weeks DISCHARGE FOLLOW-UP: [facility] Order Comments: Please make an appointment in 3 weeks for PP visit If [facility] clinic, Nursing Staff to call clinic for follow-up appointment. Follow-up with: BRISA Bermudez When: 3 Weeks Patient Discharge Instructions - Vaginal Delivery Order Comments: Return to ER if Temp > 100.4 F, headache unresolved with pain medications, visual disturbances including double or blurry vision, seeing spots, or upper abdominal pain. Pelvic rest 4 to 6 weeks, and no heavy lifting. Weight: In general, sudden weight gains or losses should be reported to your provider. Cardiac patients should weigh daily and notify their provider for a weight gain of 3 pounds per day or 5 pounds per week. Peso: En general, la perdida aumento repentino de peso deber ser reportado a arizmendi proveedor. Lospacientes cardiacos, debern pesarse a diario y notificar a arizmendi proveedor si tienen un aumento de 3 libras por da o 5 libras por semana. Tobacco Avoidance: Follow recommendations below Para evitar el Tabaco: Siga las recomendaciones a continuacin. To schedule other appointments, call the [facility] at [phone] or1- . You may also make appointments online by going to [email or web address] and follow the Request Appointment quicklink. Para programar otras citas, llame al centro de acceso de ninfa de [facility] al o al . Usaxel antoine puede hacer citas por internet, vaya a [email or web address] y juan pablo la conexin con solicitud citas (Request Appointment) For questions regarding follow-up instructions call the [facility] at or Para preguntas relacionadas con las instrucciones del seguimiento llame al For worsening symptoms/changing condition/problems or questions: Si los sntomas empeoran/cambios de condicin/problemas o preguntas, llame: Non-emergency/urgent: Call the [facility] at or 1- or No emergencia/urgencia: Llame al [facility] de Acceso de Ninfa de [facility] Emergency: Go to the closest emergency room or call [phone] Emergencia: Vaya a la kriss de emergencia ms cercana o llame al [phone] Our Goal is to Always Provide You with Very Good Care! We will be mailing you a survey, Please complete and return at your convenience. Thank You Nuestra Sikes es Ofrecerle a Usaxel Siempre, jazz muy buena atencin. Nosotros le enviaremos jazz encuesta, por favor llnela y regrsela segn pueda. Urbano Multidisciplinary Discharge Instructions (may include diet, dressing changes, activity limits, written materials given to patient: DIET: Eat a well balanced diet; drink 6-8 glasses of fluids daily; eat fruits and green, leafy vegetables. DAILY ACTIVITIES: 1. As much as you feel able to do. Rest when you are tired. 2. Limitations: Specify; No heavy lifting other than your baby for 4 weeks if you had surgery. TREATMENT AT HOME 1. Use a well-fitting bra to prevent breast engorgement 2. Resume intercourse as instructed by your physician. 3. Do not use douches or tampons for four weeks. 4. To help prevent urinary tract infection; after each urination and bowelmovement, wipe and dry from front to back and change peripad. 5. Follow discharge instructions regarding baby care. 6. Follow family planning instructions. IMMEDIATE TREATMENT Call Clinic or Your Physician 1. Increase in pain and tenderness of uterus. 2. Increased vaginal bleeding (bright red blood which soaks 2 pads in 1hour or pass large clots). 3. Foul smelling vaginal discharge. 4. Burning in the tube that empties the urine from the bladder. 5. Painful breast engorgement or cracked nipples. 6. Pain, discharges, or gaping incision. 7. Temperature greater than 38.0C or 100.4F 8. Pain and tenderness of calf or thigh muscles. 9. No bowel movements in 4 days. Instrucciones multidisciplinarias para karli de sean (pueden incluir, dieta, cambio de gasas, limitacin de actividades, material escrito para entregar al paciente): DIETA: Mantenga jazz dieta sayda balanceada; tome de 6 a 8 vasos de lquidos al da; coma frutas, hortalizas y vegetales. ACTIVIDADES DIARIAS: 1. Mantngalas mientras pueda. Descanse si se siente cansada, 2. Limitaciones: No levante nada ms pesado que arizmendi hijo por cuatro semanas si tuvo jazz operacin. ARIZMENDI CUIDADO EN CASA: 1. Use un sostn que le ajuste sayda para evitar que se le llenen demasiados los pechos. 2. Resuma dina relaciones sexuales segn le indique arizmendi doctor. 3. No use duchas ni tampones por 4 semanas. 4. Para ayudar a prevenir infecciones urinarias, despus de orinar y defecar, lmpiese de adelante hacia atrs y cmbiese la toalla sanitaria. 5. Siga las instuciones sobre el cuidado del beb. 6. Siga las instrucciones sobre planificacin familiar. TRATAMIENTO INMEDIATOLlame a la clnica o a arizmendi doctor si: 1. Aumenta el dolor o sensibilidad en la matriz. 2. Aumenta el sangramiento vaginal (jose barrie brillante que pueda llenar 2 toallas sanitarias en jazz hora o si tiene cogulos grandes). 3. Tiene desecho vaginal con mal olor. 4. Tiene ardor cuando orina. 5. Siente dolor en los pechos porque estn muy llenos o grietas en los pezones. 6. Tiene dolor, drenaje o que se le habr la incisin. 7. Tiene temperatura mayor de 38.0 grados centgrados o ms de 100.4 grados Farenheit. 8. Tiene dolor sensibilidad en los msculos de las pantorrillas o de los muslos. 9. Tiene estreimiento por 4 hamilton. Tobacco Avoidance Exposure to tobacco either from smoking or from second hand (environmental) smoke or smokeless tobacco (snuff) is damaging to your health. This information is to encourage everyone to avoid tobacco exposure. It is recommended that you: ? If you smoke or use smokeless tobacco, we encourage you to quit. ? If you have already quit smoking, continue your good work! ? If you do not smoke or use smokeless tobacco, do not start. ? Avoid secondhand smoke. Additional Resources You may want to contact these organizations for further information on smoking and how to quit. [place] [employer], http://www.lungusa.org/stop-smoking/ [place] [employer], http://www.cancer.org/Healthy/StayAwayfromTobacco/index [place] [employer], http://www.heart.org/HEARTORG/GettingHealthy/QuitSmoking/Quit-Smoking_[facility] _001085_SubHomePage.jsp Evitar El Tabaco La exposicin al tabaco ya sea por fumar o por el humo de segunda mano (humo ambiental) y el tabacosin humo es perjudicial para arizmendi ninfa. Esta informacin es para animar a todos para que eviten la exposicin al tabaco. Se recomienda: Si usted fuma o usa tabaco sin humo le animamos a dejarlo. Si lei dejado de fumar, continu con arizmendi buen trabajo! Si usted no fuma o usa tabaco sin humo no empiece a hacerlo. Evitar el humo de segunda mano. Recursos Adicionales: Usted puede comunicarse con estas organizaciones para tener ms informacin sobre fumar y jason dejar de hacerlo. [place] [employer] (Asociacin Americana del Pulmn), http://www.lungusa.org/stop-smoking/ [place] Cancer Society (Sociedad Americana del Cncer), http://www.cancer.org/Healthy/StayAwayfromTobacco/index [place] [employer] (Asociacin Americana del Corazn), http://www.heart.org/HEARTORG/Gettin gHealthy/QuitSmoking/Quit-Smoking_[facility]_001085_SubHomePage.jsp AttachmentsThe following attachments cannot be sent through Care Everywhere. , Breast Care After (Tristanian)Vaginal , After a (Tristanian) Depression, Understanding (Tristanian), Common Questions About (Tristanian), Nutrition While (Tristanian): Caring for Yourself (Tristanian), Holding Your Baby While (Tristanian)documented in this encounter Progress Notes Berry Olivarez, - 10/28/2019 9:44 AM CDT Post-Anesthesiology Follow-Up Note Loida Oakes is a 19 year old female with the following past medical history: Past Medical History: Diagnosis Date Anemia of mother in , antepartum 08/04/2019 Vaginal yeast infection 06/10/2019 and who is status post vaginal delivery, post- day #1. The anesthetic used was epidural. There was not an unintentional dural puncture. Patient is examined. Vital Signs: Patient Vitals for the past 24 hrs: BP Temp Temp src Pulse Resp SpO2 10/28/19 0837 95/55 35.8 C (96.5 F) Oral 68 18 97 % 10/28/19 0437 97/64 36.4 C (97.5 F) Oral 79 18 97 % 10/28/19 0033 109/69 36.7 C (98 F) Oral 74 18 97 % 10/27/19 2030 129/79 37.6 C (99.6 F) Oral 73 18 97 % 10/27/19 1915 37.1 C (98.7 F) Axillary 10/27/19 1845 130/83 73 18 97 % 18 1824 126/84 71 18 97 % 1820 1815 126/84 73 18 98 % 1820 1800 126/89 74 18 98 % 20 1745 127/77 38.3 C (100.9 F) Axillary 74 18 98 % 20 1725 87 1820 1720 80 18/20 1715 85 1820 1710 88 1820 1705 110 18 1700 123/71 82 18/20 1655 90 1820 1650 104 1820 1645 83 1820 1640 82 1820 1635 84 1820 1630 38.3 C (100.9 F) Axillary 81 18 1600 121/68 84 18 99 % 18/20 1545 130/68 96 19 99 % 1820 1500 121/62 80 20 100 % 18/20 1430 112/80 88 18 99 % 1820 1400 101/82 37.9 C (100.3 F) Axillary 83 20 99 % 08/18/20 1330 114/61 78 18 99 % 10/27/19 1300 118/78 37.9 C (100.2 F) Axillary 81 18 99 % 10/27/19 1230 107/64 84 18 99 % 10/27/19 1200 107/64 37.8 C (100.1 F) Axillary 90 18 99 % 10/27/19 1130 103/67 82 18 99 % 10/27/19 1100 121/82 37.7 C (99.8 F) Axillary 81 18 99 % 10/27/19 1030 117/70 86 18 99 % 10/27/19 1000 120/83 37.6 C (99.7 F) Axillary 88 18 99 % The patient has been getting up and ambulating. The patient has voided. The patient reports no headache. The patient reports no back pain. There is no edema, no erythema, no tenderness, and no ecchymosis over the neuraxial insertion site. There is not paraspinous muscle tenderness. Patient counseled that soreness over low back paraspinal muscles and over neuraxial injection site is common and expected to resolve in 1-2 weeks. Advised to seek medical attention if worsens, persistsor is associated with neurologic deficits. The patient reports no neurological deficits. The patient reports no nausea or vomiting. The patient is satisfied with her anesthetic. The patient does not require further followup. Berry Olivarez DO 10/28/2019 9:44 AM Dori Valdovinos FNP - 10/28/2019 8:57 AM CDT PROGRESS NOTE Subjective: Patient is a 19 year old , S/P , post day 1. She complains of cramps. Patient denies sob, vertigo, or palpitations. Patient reports voiding without difficulty with good urine output. Patient reports ambulating unassisted without difficulty. Tolerating diet, passing flatus. Breast/bottlefeeding. No evidence of depression. Changes since previous day: Delivered Objective: Vital Signs: BP: (94-115)/(62-74) Temp: [35.7 C (96.2 F)-36.4 C (97.5 F)] Temp source: Oral (10/28 0740) Pulse: [59-70] Resp: [18] SpO2: [97 %-99 %] Height: -- Weight: -- BMI (calculated): -- Physical Exam: General: No apparent distress Happy with new baby. Affect appropriate Heart: regular rate and rhythm. S1, S2 present. No murmur/ rubs/gallops Lungs: good inspiratory effort to inspections, lungs clear to auscultation bilaterally. No wheeze/stridor/ crackles bilaterally. Breast: soft Abdomen: soft non-tender Fundus: firm at umbilicus Perineum: Rt. Labial laceration ,minor, intact, no edema, hematoma or abcess Lochia: scant rubra, no clots Extremities: no clubbing, cyanosis, or edema bilaterally. No calf tenderness/ NEG Christy's Current Medications: Current Facility-Administered Medications Medication Dose Route Frequency Last Rate Last Dose acetaminophen (TYLENOL) tablet 650 mg 650 mg Oral Q6HPRN 650 mg at 10/28/19 2346 benzocaine-menthol (DERMOPLAST) 20-0.5 % topical spray Topical PRN diphenhydrAMINE (BENADRYL) tablet 25 mg 25 mg Oral Q6HPRN diphenhydrAMINE-0.9 % sod.chlr (BENADRYL) 25 mg/50 mL piggyback 25 mg 25 mg IV Piggyback Q6HPRN docusate calcium (SURFAK) capsule 240 mg 240 mg Oral QDAILYPRN 240 mg at 10/29/19 0845 human papillomav vac,9-corby(PF) (GARDASIL-9) syringe 0.5 mL 0.5 mL Intramuscular ONCE-PRIOR TO DISCHARGE ibuprofen (IBU) tablet 600 mg 600 mg Oral Q6HPRN 600 mg at 10/29/19 0845 LR 1000 mL + oxytocin 20 units IV Solution IV Infusion CONTINUOUS 125 mL/hr at 10/27/19 193 magnesium hydroxide (MILK OF MAGNESIA) 400 mg/5 mL suspension 30 mL 30 mL Oral QDAILYPRN ondansetron (ZOFRAN (PF)) injection 4 mg 4 mg Slow IV Push Q8HPRN vitamin w/FA (PRENATABS RX) tablet 1 tablet 1 tablet Oral DAILY 1 tablet at rho(D) immune globulin (RHOGAM) syringe 300 mcg 300 mcg Intramuscular ONCE simethicone (GAS RELIEF (SIMETHICONE)) chewable tablet 160 mg 160 mg Oral PC+HSPRN Labs: CBC BMP MAGNESIUM WBC (10*3/L) Date Value 10/06/2019 8.49 No results found for: NA No results found for: MG PLT (10*3/L) Date Value 10/06/2019 297 No results found for: K HGB (g/dL) Date Value 10/06/2019 12.3 No results found for: CA HCT (%) Date Value 10/06/2019 36.1 No results found for: CL TYPE & RH No results found for: BUN ABO & RH (no units) Date Value 10/26/2019 B POSITIVE No results found for: CREAT Type & Screen Rubella Varicella ABO & RH (no units) Date Value 10/26/2019 B POSITIVE Rubella screen IgG (no units) Date Value 03/19/2019 Negative No results found for: VZVG No results found for: TSABINT Hep B HIV Syphilis No results found for: HBS No results found for: HIV No results found for: SYPG Group B Strep Chlamydia No results found for: CGBS C. trachomatis Nucleic Acid (no units) Date Value 10/06/2019 Negative Assessment/Plan: COVID-19 screening at admission is negative Denies travel to known Covid-19 affected areas. Denies close contact with someone suspected of having the Covid-19. Denies any s/s of Covid-19. Reviewed with patient plan of care if she should learn of exposure to Covid-19 or develop s/s of Covid-19. This patient is considered low risk for COVID-19 infection Principal Problem: (spontaneous vaginal delivery) (10/27/2019) POA: No Assessment: Delivered Plan: Routine course Active Problems: 39 weeks gestation of (10/25/2019) POA: Yes Indication for care or intervention in labor or delivery-IOL (10/26/2019) POA: Yes Single liveborn delivered vaginally (10/27/2019) POA: No Assessment: Infant 3600g with 8/9 Apgars Plan: Infant in care of pediatricians Chorioamnionitis (10/27/2019) POA: No Assessment: fever during labor / immediate PP last episode of 99.6 F at 2030 on 10/27/2019,no antibiotic coverage, afebrile since then Plan: encouraged ambulation , increase PO hydration , analgesics PRN. NB requires 36 hrs of observation , D/C home tomorrow. Laceration, obstetrical, minor (10/28/2019) POA: No Assessment: mild labial edema, no hematoma. Plan: adelfo care, use adelfo bottle with/ warm water after each void , Ibuprofen for pain / inflammation Rubella non-immune status, antepartum (03/20/2019) POA: Yes Assessment: Rubella non-immune Plan: Pt aware she needs the rubella vaccine prior to d/c home. Pt also aware to avoid for3 months post vaccine. Susceptible to varicella (non-immune), currently (03/20/2019) POA: Yes Assessment: Varicella non-immune Plan: Pt aware she needs the varicella vaccine prior to d/c home and # 2 vaccine at 4-6wks pp. Pt also aware to avoid for 3 months post vaccine. Group B streptococcal carriage complicating (10/08/2019) POA: Yes Assessment: GBS carrier Plan: Treated adequately with antibiotics during labor. ASSESSMENT 19 y/o S/p on 10/27/19 at 05:18 PM complicated by chorioamnionitis. Patient is recovering well: hemodynamically stable, good UOP, pain well- controlled, vitals within normal limits. PLAN 1. Review: - Admitted for: IOL at term gestation - Estimated blood loss: 250 ml - Laceration: rt. labial - Vaginal delivery Complications: None - Predelivery H/H: 12.3/36.1 2. care: - Diet: Regular diet - Fluid: Encourage oral intake - Activity: Encourage ambulation - Pain: [place] and Ibuprofen - DVT prophylaxis: Encourage ambulation 3. Discharge Planning: - Contraception: undecided - Vaccines: VZV and MM prior to discharge - Follow Up: follow-up in 3 weeks at clinic - Anticipate discharge tomorrow 4. Baby Status - at bedside CONOR Mercer Cris Diallo CNM - 10/27/2019 3:59 AM CDT INTRAPARTUM PROGRESS NOTE Subjective: Loida Oakes is a 19 year old, , 39w2d, 11/01/2019, by Last Menstrual Period. Admitted for elective IOL. S/p Dilapan (6) placed on 10/25/19 @ 3 (SVE 150/-2) Dilapan removed 10/26/19 @ 1020, SVE /-2 Pitocin started 10/26/19 @ 1112 10/26/19 @ 1715: 1 10/26/19 @ 2015: Stadol and Phenergan, Pit on 10/26/19 @ 2035: , AROM, mod amt of clear fluid, Pit increased to 18 10/26/19 @ 2340: cervix unchanged, Pitocin on 12 (decreased due to tachysystole) and patient desires epidural; PITOCIN STOPPED 10/27/19 @ 0009: Epidural placed 10/27/19 @ 0040: pitocin restarted on 2 10/27/19 @ 0055: cervix unchanged, IUPC placed (good IUPC placement, unable to find cable for appropriate reading so toco resumed) 10/27/19 @ 0345: cervix unchanged, IUPC replaced, early decels present and bloody show present Objective: Labs: HCT (%) Date Value 10/06/2019 36.1 HGB (g/dL) Date Value 10/06/2019 12.3 PLT (10*3/L) Date Value 10/06/2019 297 ABO & RH (no units) Date Value 10/26/2019 B POSITIVE Vital Signs: BP: (97-122)/(50-83) Temp: [36.8 C (98.2 F)-37.2 C (98.9 F)] Temp source: Axillary (10/26 0300) Pulse: [64-95] Resp: [16-20] SpO2: [97 %-100 %] Height: [154.9 cm (5' 1")] Weight: [65.8 kg (145 lb)] BMI (calculated): [27.4] Pain Level: 0 Cervical Exam OB Examiner: LBDobbs, CNM Dilation: 4 Effacement (%): 90 % Station: -1 Position: Occiput Transverse Presentation: Vertex Asynclitism: None Anesthesia: Epidural Oxytocin: 12 mu/min Heart Rate: Pattern: Accelerations;Early decelerations FHR Category: I Assessment/Plan: Early labor induction Reassuring heart rate Increase pitocin induction to 14 mu/min Continue to reposition patient (peanut, side-lying, high fowlers) Establish good IUPC tracing to determine if MVUs are adequate Continue GBS prophylaxis Cris Hoffman APRN, WHNP-BC, CNM Ana Mcghee CNM - 10/26/2019 10:25 AM CDT Loida Oakes is a 19 year old female 39w1d Diapan Extraction: Extraction date and time: 10/26/19 @ 1015 6 x dilapan removed, 1 gauze in the normal sterile fashion. Please use the table below for: SVE 380/-2 CERVIX: Consistency : very soft; Position: posterior, Station: -2 Ana Cao APRN, CNM documented in this encounter Procedure Notes Cris Hoffman CNM - 10/27/2019 12:55 AM CDTProcedure(s): INTRAUTERINE PRESSURE CATHETER PLACEMENT AND MONITORINGPre-Procedure Diagnose(s): Labor and delivery indication for care or interventionPost-Procedure Diagnose(s): Labor and delivery indication for care or interventionPt is now comfortable with her epidural. Pitocin was stopped from 2340 to 0040 during her epidural placment due to tachysystole, dysfunctional uterine pattern and patient's pain. Pitocin is now infusing at 2 mu/min. IUPC catheter inserted per package insert instructions without difficulty. Amniotic fluid return noted in IUPC catheter with no trip red bleeding in catheter or on insertion. Pt tolerated procedure without pain or complications. Will monitor MVUs. Desire MVUs to be 180-220 to achieve adequate labor. Will reassess cervical dilation 2 hours after adequate MVUs achieved. documented in this encounter Miscellaneous Notes Care Plan - Amaya Tabares RN - 10/29/2019 12:58 PM CDT Problem: Discharge Planning - Goal: Absence of venous thromboembolism Outcome: Adequate for discharge Goal: Adequate for discharge Outcome: Adequate for discharge Goal: Mood stable Outcome: Adequate for discharge Problem: Pain Goal: Control of pain at or below patient's documented comfort goal Outcome: Adequate for discharge Goal: Reduction in pain sensation Outcome: Adequate for discharge actation Note - Annika Beard RN - 10/29/2019 9:50 AM CDT This note was copied from a baby's chart. Assessment (most recent) Assessment - 10/29/19 0945 General Information Visit Follow-up Percent of weight loss- 3 Number of voids last 24 hours- 3 Number of stools last 24 hours- Infant 3 Nipple & Areola Assessment Left Nipple Tender Right Nipple Tender Literature Resources Education 2nd day/growth spurt cluster feeds;Diaper counts/color;On-demand feeds at least 8 or more over 24 hours; hunger cues;Lactogenesis Agricultural Equipment Sales Manager Observation Reported;Mom states infant latches well with no pain just some tenderness Interventions Motherlove nipple cream Follow up WIC Recommended Feeding Plan Recommended feeding plan On-demand , 8-12 times in 24 hours not to exceed 6 hours between feeds June Beard RNC-[place], IBCLC are Plan - Elisa Campbell RN - 10/29/2019 12:06 AM CDT Problem: Discharge Planning - Goal: Absence of venous thromboembolism Outcome: Progressing as expected Goal: Adequate for discharge Outcome: Progressing as expected Goal: Mood stable Outcome: Progressing as expected Problem: Pain Goal: Control of pain at or below patient's documented comfort goal Outcome: Progressing as expected Goal: Reduction in pain sensation Outcome: Progressing as expected actation Note - Annika Beard RN - 10/28/2019 1:14 PM CDT This note was copied from a baby's chart. Assessment (most recent) Assessment - 10/28/19 1300 General Information Visit Initial Feeding plan Breast Planned maternity leave School online Financial Class WIC;Medicaid Delivery method Breast changes during Enlarged;Tenderness Periods Regular Oral Assessment Oral assessment New assessment Date of 10/27/19 Time of 1728 Infant location Mother Baby Unit Chin Normal Palate assessment Normal Tongue assessment Normal Upper lip assessment Normal head assessment Molding Breast Assessment Breast Assessment Initial Symmetry Symmetrical Size M (B-C) Shape Rounded Other Soft Nipple & Areola Assessment Left Areola Pliable;Edematous Right Areola Pliable;Edematous Left Nipple Colostrum visible;Flat;Everts w/stimulation Right Nipple Colostrum visible;Flat;Everts w/stimulation Literature Resources Resources Understanding Mother and Baby Care;[place] [employer] Education hunger cues;On-demand feeds at least 8 or more over 24 hours;Diaper counts/color;Benefits of breastmilk;Hand expression;Benefits of skin to skin contact;Signs of an effective latch; stomach size;2nd day/growth spurt cluster feeds;Position changes;Maternal nutrition/hydration;La ctogenesis;How to obtain pump for after discharge Agricultural Equipment Sales Manager Observation Assist with latch;Mom states has painful latches Position left side Football;Infant latched effectively;Suckled in coordinated bursts Interventions Placed skin to skin;Taught hand expression Mother demonstrated teach back of Positioning and latching at breast Follow up Follow up in hospital Recommended Feeding Plan Recommended feeding plan On-demand , 8-12 times in 24 hours not to exceed 6 hours between feeds;Frequent [id number] time with parents June Beard RNC-[place], IBCLC are Plan - Elisa Campbell RN - 10/28/2019 4:48 AM CDT Problem: Discharge Planning - Goal: Absence of venous thromboembolism Outcome: Progressing as expected Goal: Adequate for discharge Outcome: Progressing as expected Goal: Mood stable Outcome: Progressing as expected Problem: Pain Goal: Control of pain at or below patient's documented comfort goal Outcome: Progressing as expected Goal: Reduction in pain sensation Outcome: Progressing as expected &D Delivery Note - Ana Munguia CNM - 10/27/2019 6:04 PM CDTDELIVERY BY SPONTANEOUS VAGINAL DELIVERY Delivery Date: 10/27/2019 Delivery Time: 5:28 PM Delivery Summary The patient was admitted to the Labor & Delivery unit for IOL at 39.1 weeks. Delivery Provider: Ana Cao APRN, CNM Intrapartum Anesthesia/Analgesia: Epidural and IV Stadol analgesia Mode of Delivery: Delivery of barlow fetus with cephalic presentation Fetus Spontaneous vaginal delivery of head with cephalic position, occipital anterior. As the head crowned and distended the perineum, no episiotomy was performed. A blue towel was used to protect theperineum as the head crowned and delivered. The other hand was used to exert pressure on the occiput to control the delivery of the head. The perineum was pushed with a towel-draped hand as the head and mouth was delivered over the perineum. The head was allowed to rotate externally to achieve natural body posture. Examination of neck revealed no umbilical cord. The shoulder was delivered by gentle downward traction applied to head and downward traction for the delivery of anterior shoulder. This was followed by upward traction with delivery of posterior shoulder and body. After the delivery of infant, bulb suction was performed from ororpharynx and nostril with removal of clear amniotic fluid. A normal, male was delivered. Weight 3600 gm. Apgars 8/9. The umbilical cord was milked towards the fetus, clamped, cut and the was handed off the field to the circulating nurse. The pediatricians were at the stand to evaluate the new born. Placenta Placenta was delivered spontaneously while the abdominal hand lifted the uterus cephalad and other hand keeping the umbilical cord slightly taut. Laceration Laceration Repair: Minor - lacerations (perineum, sidewall, labial, vaginal floor and/or periurethral) were closed with interrupted sutures. . Fourth Stage Fourth stage of labor was managed by uterine massage with abdominal hand and infusion 20 units of pitocin mixed with intravenous fluid. EBL: 250 ml Complications: chorioamnionitis Ana Cao APRN, CNM are Doroteo - Deisy Acosta RN - 10/27/2019 7:18 AM CDT Problem: Intrapartum process (including labor pain) Goal: Absence of or reduction of complications of labor Outcome: Progressing as expected Goal: Able to cope with pain Outcome: Progressing as expected Goal: Adequate to move to next level of care Outcome: Progressing as expected Goal: Reduction in pain sensation Outcome: Progressing as expected are Doroteo - Sridevi Velazco RN - 10/26/2019 6:41 PM CDT Problem: Intrapartum process (including labor pain) Goal: Absence of or reduction of complications of labor Outcome: Progressing as expected Goal: Able to cope with pain Outcome: Progressing as expected Goal: Adequate to move to next level of care Outcome: Progressing as expected Goal: Reduction in pain sensation Outcome: Progressing as expected documented in this encounter Plan of Treatment Date Type Specialty Care Team Description 11/17/2019 Routine Visit [facility] Satellites [facility] Doyle, [facility] [address] [id number] 15 [phone] Name Type Priority Associated Order Schedule Diagnoses VENOUS CORD GAS LAB MARIE ONCE for 1 Occurrences sta rting 10/26/2019 unti l 10/26/2019 ARTERIAL CORD GAS LAB MARIE ONCE for 1 Occurrences sta rting 10/26/2019 unti l 10/26/2019 Delayed Administration IMMUNIZATION/ Routine ONCE for 1 until Day of Discharge INJECTION Occur rences starting MMR 10/27/2019 unti l (MEASLES/MUMPS/RUBELLA) 10/09 VACCINE Standing Order Delayed Administration IMMUNIZATION/ Routine ONCE for 1 until Day of Discharge INJECTION Occur rences starting VARICELLA 10/27/2019 unti l (VARIVAX)(CHICKEN POX) 10/26 VACCINE Standing Order Health Maintenance Due Date Last Done Comments [...] on patient's age to complete this to [facility] PNEUMOCOCCAL 0-64 YEARS Aged Out No longe r eligible based COMBINED SERIES on patient's age to complete this to [facility] VARICELLA VACCINES Discontinued WELL CARE VISIT: 12-21 YEARS Discontinued (yearly) documented as of this encounter Procedures Procedure Name Priority Date/Time Associated Diagnosis Comme nts GALV ONLY - MARIE 10/26/2019 10:51 AM Results for this SYPHILIS IGG/IGM CDT procedure a re in the results section. HIV 1/2 AG-AB WITH MARIE 10/26/2019 10:51 AM Re sults for this REFLEX CDT procedure are i n the results section. HEPATITIS B SURFACE MARIE 10/26/2019 10:51 AM R esults for this ANTIGEN CDT procedure are i n the results section. RHO (D) IMMUNE Routine 10/26/2019 10:49 AM Result s for this GLOBULIN CDT procedure are i n the results section. HB ABO GROUPING MARIE 10/26/2019 10:49 AM Resul ts for this CDT procedure are i n the results section. documented in this encounter Results HIV 1/2 AG-AB WITH REFLEX (10/26/2019 10:51 AM CDT) Pathologist Sig nature HIV 1/2 Ag-Ab with Negative Negative [facility] Reflex SERVICES HIV Semi-quantitative 0.07 [facility] Specimen Blood - VENOUS Narrative Performed At Non-reactive for HIV-1 antigen and HIV-1/HIV-2 antibod ies. [facility] No laboratory evidence of HIV infection. Repeat in 2-4 weeks if acute HIV infection is suspected. Performing Organization Address City/State/Zipcode Phone Number [facility] CLIA: [id number] [place] [address] [place] [address] GALV ONLY - SYPHILIS IGG/IGM (10/26/2019 10:51 AM CDT) Pathologist [facility] Syphilis IgG/IgM Non-reactive Non-reactive [facility] Specimen Blood - VENOUS Narrative Performed At [facility] Non-reactive - No serologic evidence of T. pallidum infection. Cannot exclude incubating or early syphilis . Submit a second specimen in 2-4 weeks if syphilis is clinically suspected. Equivocal - Further testing to follow. Reactive - Further testing to follow. Performing Organization Address City/State/Zipcode Phone Number [facility] CLIA: [id number] [place] [address] [place] [address] Hepatitis B Surface Antigen (10/26/2019 10:51 AM CDT) [facility] HBsAg Negative Negative [facility] HBsAg 0.09 [facility] Semi-Quantitative SERVICES Specimen Blood - VENOUS Performing Organization Address City/[facility]/Zipcode Phone Number [facility] CLIA: [id number] [place] [address] [place] [address] RHO (D) IMMUNE GLOBULIN (10/26/2019 10:49 AM CDT) Pathologist [facility] RHIG CANDIDATE? No- see comment LAB Comment: Patient is not a candidate for RhIg- Patient is Rh Pos itive. Performed at [facility] - [facility] [address] [place] [address] Toll Free: [phone] CLIA No. [id number] Specimen Blood - VENOUS Performing Organization Address [facility] Phone Number [facility] Type and Screen - ONCE MARIE (10/26/2019 10:49 AM CDT) [facility] ABO & RH B POSITIVE LAB Comment: Performed at [facility] Laboratory Services - [facility] [address] [place] [address] Toll Free: [phone] CLIA No. [id number] IAT Negative LAB Comment: Performed at [facility] Laboratory Services - [facility] [address] [place] [address] Toll Free: [phone] [facility] No. [id number] Specimen Blood - VENOUS Performing Organization Address City/State/Zipcode Phone Number [facility] documented in this encounter Visit Diagnoses Diagnosis (spontaneous vaginal delivery) - Irma gayle Normal delivery Rubella non-immune status, antepartum Other specified complication, antepartum Susceptible to varicella (non-immune), c urrently Supervision of other high-risk Anemia of mother in , antepartu m Anemia, antepartum Group B streptococcal carriage complicat ing 39 weeks gestation of state, incidental Indication for care or intervention in l abor or delivery-IOL Unspecified indication for care or inter vention related to labor and delivery, unspecified as to episode of care Single liveborn infant delivered vaginal ly Single liveborn, [facility] in hospital, [facility] ered without mention of delivery Laceration, obstetrical, minor First-degree perineal laceration, unspec ified as to episode of care in BMI 21.0-21.9, adult Supervision of high risk in th ird trimester Unspecified high-risk Chorioamnionitis Infection of amniotic cavity, unspecifie d as to episode of care documented in this encounter Administered Medications Medication Order MAR Action Action Date Dose Rate Site acetaminophen (TYLENOL) tablet Given 10/28/2019 11:46 PM CDT 650 mg 650 mg 650 mg, Oral, Q6HPRN, Starting Sat10/27/19 at 1759, Until Discontinued, Routine, Pain (scale 1-3) Given 10/28/2019 3:04 AM CDT 650 mg benzocaine-menthol (DERMOPLAST) 20-0.5 % topical spray Topical, PRN, Starting Sat10/27/19 at 20 32, Until Discontinued, Routine, Perineum discomfort diphenhydrAMINE (BENADRYL) tablet 25 mg 25 mg, Oral, Q6HPRN, Starting Sat10/27/19 at 2031, Unt il Discontinued, Routine, Sleep, Itching diphenhydrAMINE-0.9 % sod.chlr (BENADRYL ) 25 mg/50 mL piggyback 25 mg 25 mg, IV Piggyback, Administer over 30 Minutes, Q6HPRN, Starting Sat10/27/19 at 2031, Until Discontinued, Routine, Itching docusate calcium (SURFAK) capsule 240 mg Given 10/29/2019 8:45 AM CDT 240 mg 240 mg, Oral, QDAILYPRN, Starting Sat10/27/19 at 2031, Until Discontinued, Routine, Constipation Given 10/28/2019 10:10 AM CDT 240 mg ibuprofen (IBU) tablet 600 mg Given 10/29/2019 8:45 AM CDT 600 mg 600 mg, Oral, Q6HPRN, Starting Sat10/27/19 at 1800, Until Discontinued, Routine, Pain (scale 4-6) Given 10/28/2019 11:46 PM CDT 600 mg Given 10/28/2019 10:10 AM CDT 600 mg LR 1000 mL + oxytocin 20 units IV New Bag 10/27/2019 7:38 PM CDT 125 mL/hr Solution at 125 mL/hr, IV Infusion, CONTINUOUS, Starting Sat10/27/19 at 1915, Until Discontinued, MARIE magnesium hydroxide (MILK OF MAGNESIA) 4 00 mg/5 mL suspension 30 mL 30 mL, Oral, QDAILYPRN, Starting 10/09 at 2031, Until Discontinued, Routine, Constipation ondansetron (ZOFRAN (PF)) injection 4 mg 4 mg, Slow IV Push, Q8HPRN, Starting Sat10/27/19 at 20 32, Until Discontinued, Routine, Nausea and Vomiting (N/V) vitamin w/FA (PRENATABS RX) Given 10/29/2019 8:45 AM C DT 1 tablet tablet 1 tablet 1 tablet, Oral, DAILY, First dose on Sat10/28/19 at 0900, Until Discontinued, Routine Given 10/28/2019 10:10 AM CDT 1 tablet rho(D) immune globulin (RHOGAM) syringe 300 mcg 300 mcg, Intramuscular, ONCE, For 1 dose, Conditional, Routine simethicone (GAS RELIEF (SIMETHICONE)) c hewable tablet 160 mg 160 mg, Oral, PC+HSPRN, Starting 10/09 at 2031, Until Discontinued, Routine, Gas Medication Order MAR Action Action Date Dose Rate Site butorphanol (STADOL) injection 1 mg Given 10/26/2019 8:15 PM CDT 1 mg 1 mg, Intravenous, Q3HPRN, Starting Sat10/26/19 at 1246, Until Sat10/27/19 at 1800, Routine, Pain D5W-LR IV infusion 1,000 mL New Bag 10/26/2019 6:47 PM CDT 1,000 mL 125 mL/hr at 125 mL/hr, IV Infusion, CONTINUOUS, Starting Sat10/26/19 at 1030, Until Sat10/27/19 at 1800, Routine New Bag 10/26/2019 10:51 AM CDT 1,000 mL 125 mL/hr human papillomav Given 10/29/2019 1:24 PM CDT 0.5 mL Right Deltoid-IM vac,9-corby(PF) (GARDASIL-9) syringe 0.5 mL 0.5 mL, Intramuscular, ONCE-PRIOR TO DISCHARGE, 1 dose, Starting Sat10/27/19 at 2032, Until Sat10/29/19 at 1324, Routine, Give vaccine prior to discharge lactated ringers IV infusion 500 New Bag 10/27/2019 12:02 AM C DT 500 mL 999 mL/hr mL at 999 mL/hr, 500 mL, IV Infusion, ONCE, 1 dose, Sat10/27/19 at 0045, Routine LR 1000 mL + oxytocin 20 New Bag 10/27/2019 11:05 AM 20 clarita- units/min 60 mL/hr units IV Solution CDT at 6-120 mL/hr, IV Infusion, TITRATE, Starting Sat10/26/19 at 1027, Until Sat10/27/19 at 1800, MARIE Rate Change 10/27/2019 4:40 AM CDT 20 clarita-units/min 60 mL/hr Rate Change 10/27/2019 4:20 AM CDT 18 clarita-units/min 54 mL/hr measles, mumps + rubella Given 10/29/2019 1:29 PM CDT 0.5 mL Right Upper Arm-SC vac (M-M-R II) 1,000-12,500 TCID50/0.5 mL injection 0.5 mL 0.5 mL, Subcutaneous, ONCE, 1 dose, Sat10/29/19 at 1015, Routine penicillin g pot in dextrose Given 10/27/2019 4:00 PM CDT 3 Million Units 50 mL/hr 3 million unit/50 mL RTU iv piggyback 3 Million Units 3 Million Units, IV Piggyback, Q4H ABX, First dose on Sat10/26/19 at 1430, Until Discontinued, 50 mL, Reason for Anti-Infective: Empiric Non-Surgical Prophylaxis, Duration of therapy: 72 hours, Specific indication: GBBS Prophylaxis Given 10/27/2019 12:00 PM CDT 3 Million Units 50 mL/hr Given 10/27/2019 8:00 AM CDT 3 Million Units 50 mL/hr penicillin g potassium 5 Million Given 10/26/2019 11:12 AM CDT 5 Million Units Units in NaCl 0.9% (NS) 100 mL MINI-BAG 5 Million Units, IV Piggyback, ONCE, 1 dose, Sat10/26/19 at 1030, 100 mL, Reason for Anti-Infective: Empiric Non-Surgical Prophylaxis, Duration of therapy: 72 hours, Specific indication: GBBS Prophylaxis proMETHazine (PHENERGAN) 25 mg in NaCl 0.9% Given 10/26/2019 8:15 PM CDT 25 mg (NS) 50 mL piggyback 25 mg, IV Piggyback, ONCE, 1 dose, Sat10/26/19 at 1300, 50 mL sodium citrate-citric acid (BICITRA) 500-334 Given 12:01 AM CDT 30 mL mg/5 mL solution 30 mL 30 mL, Oral, PRE-PROCEDURE ONCE, 1 dose, Starting Sat10/26/19 at 1025, Until Sat10/27/19 at 0001, Routine, Surgery/Procedure varicella virus vaccine live Given 10/29/2019 1:25 PM CDT 0.5 m L Left Upper Arm-SC (VARIVAX (PF)) injection 0.5 mL 0.5 mL, Subcutaneous, ONCE-PRIOR TO DISCHARGE, 1 dose, Starting Sat10/29/19 at 0914, Until Sat10/29/19 at 1325, Routine, Give vaccine prior to discharge documented in this encounter Insurance Payer Benefit Plan / Subscriber ID Effective Dates Phone Addre ss Type Group [facility] [id number] 2019-Present Medicaid COMM PLAN - MANAGED MEDICAID [id number] 1 documented as of this encounter Advance Directives Name Relationship Healthcare Agent Relationship Co mmunication Berry Guerrero Significant Other Health Care Agent [phone] ([employer])
--- OUTSIDE RECORDS SUMMARY | 2019-11-20 03:10 | XMS REPORT | Summary of Care ---
:2000 Author Organization [facility] Address [address] [place] [address] Care Team Providers Name Role Phone Maryam Bennett Primary Care Provider Reason for Visit Auth/Cert Status Reason Specialty Diagnoses / Referred By Contact Refe rred To Contact Procedures Obstetrics Diagnoses ipi [address] [address] Phone: Fax: Encounter Details Date Type Department Care Team Description 10/27/2019 Anesthesia Labor and Delivery ( [facility]) Allison Glasgow MD [address] [place] [id number] [place] [address] Adarsh Whitlock DO [address] [place] [phone] [place] [address] Allergies No Known Allergiesdocumented as of this encounter (statuses as of 10/28/2019) Medications No known medicationsdocumented as of this encounter (statuses as of 10/28/2019) Active Problems Problem Noted Date Laceration, obstetrical, minor 10/28/2019 (spontaneous vaginal delivery) 10/27/2019 Single liveborn infant delivered vaginally 10/27/2019 Chorioamnionitis 10/27/2019 Indication for [...] as of this encounter (statuses as of 10/28/2019) Resolved Problems Problem Noted Date Resolved Date Vaginal yeast infection 06/10/2019 09/01/2019 documented as of this encounter (statuses as of 10/28/2019) Immunizations Name Administration Dates Next Due Influenza [...] Signs Not on filedocumented in this encounter OR Notes Anesthesia Postprocedure Evaluation - Allison Glasgow MD - 10/28/2019 6:08 AM CDT Patient: Loida Oakes Procedure Summary Date: 10/27/19 Room / Location: Anesthesia Start: 0000 Anesthesia Stop: 1920 Procedure: CENTRAL NEURAXIAL BLOCK Diagnosis: Scheduled Providers: Responsible Provider: Allison Glasgow MD Anesthesia Type: Epidural ASA Status: 2 Anesthesia Type: Epidural Last vitals BP Temp Pulse Resp SpO2 No complications documented. Anesthesia Post Evaluation Patient location during evaluation: bedside Patient participation: complete - patient participated Level of consciousness: awake and alert Pain management: adequate Airway patency: patent Cardiovascular status: hemodynamically stable Respiratory status: unassisted and spontaneous ventilation Hydration status: euvolemic Comments: S/P vaginal delivery utilizing labor epidural for anesthesia. Neuraxial block resolving.No headache. No complications from anesthesia. BP 97/64 (BP Location: Right arm, Patient Position: Supine) | Pulse 79 | Temp 36.4 C (97.5 F) (Oral) | Resp 18 | Ht 1.549 m (5' 1") | Wt 65.8 kg (145 lb) | LMP 01/25/2019 (Exact Date) | VhS621% | BMI 27.40 kg/m Anesthesia Procedure Notes - Adarsh Whitlock DO - 10/27/2019 12:09 AM CDT Associated Order(s): Central Neuraxial Block Central Neuraxial Block Performed by: Adarsh Whitlock DO Authorized by: Arsen Baum MD Start Time: 10/27/2019 12:09 AM Reason for Block: Patient request and Labor analgesia Staff: Anesthesiologist: Arsen Baum MD Resident/COREMAKER: Edmond Maya DO Performed by: Resident/COREMAKER patient identified, IV checked, risks and benefits explained, monitors and equipment checked, timeout performed, ob surgical consent/approval, pre-op evaluation, surgical consent, site marked and anesthesia consent Epidural: Patient Position: Sitting Prep: Betadine and patient draped Monitoring: Heart rate, satellite project site monitor / EKG, continuous pulse ox, heart rate / toco and NIBP Location: Lumbar (1-5) Lumbar: L3-L4 Approach: Midline Injection Technique: GENARO saline Needle and Epidural Catheter: Epidural Kit: BBbridgette Needle Type: Tuohy Needle Length: 3.5 in (8.89 cm) Needle Insertion Depth: 5.5 Catheter Type: Multiport Catheter Size: 19 G Catheter at Skin Depth: 9 Test Dose: Lidocaine 1.5% with epinephrine 1-to-200,000 Notes: Patient prepped and draped in sterile fashion. Wheal made in skin with local anesthetic. Negative aspiration of CSF x2 and test dose negative. The patient was placed at 30 degrees and connected tothe epidural pump. Remote given to patient and all questions were answered. Counseled the patient onfall risk. The patient tolerated the procedure without complications. Pump Settings: PIB mode Continuous 1mL/hr 4 mL intermittent bolus every 20 min 4 mL request dose bolus 15 min lockout 28 mL max dose/hr nesthesia Preprocedure Evaluation - Arsen Baum MD - 10/27/2019 12:06 AM CDT Name/ MRN / Age / Gender: Loida Oakes, [id number] 19 year old female BMI: Estimated body mass index is 27.4 kg/m as calculated from the following: Height as of this encounter: 1.549 m (5' 1"). Weight as of this encounter: 65.8 kg (145 lb). Allergies: Patient has no known allergies. Last Vitals: BP Readings from Last 1 Encounters: 10/26/19 119/73 Pulse Readings from Last 1 Encounters: 10/26/19 74 SpO2 Readings from Last 1 Encounters: 10/26/19 99% Date of Surgery: 10/27/2019 Surgeon: * No surgeons listed * Procedure: CENTRAL NEURAXIAL BLOCK OR Location: [place] Anesthesia Out of OR - OR Location Anesthesia Preop Eval (physical exam) Anesthesia Preop: Chart Review and Omhc-ib-Unrd NPO Status Verified PONV Risk Factors: female and non-smoker Anesthesia History Anesthesia History Negative per Chart Review (-) Hx of anesthetic complications Previous Anesthetics/Airways Cardiovascular Negative Cardiac ROS Pulmonary Negative Pulmonary ROS Neuro/Musculoskeletal Negative Neuro/Musculosketal ROS GI/Hepatic Negative GI/Hepatic ROS Comments: No components found for: HFT Hematology Negative Hematology ROS Comments: HGB (g/dL) Date Value 10/06/2019 12.3 10/06/19 1056 PLT 297 Renal Negative Renal ROS Comments: BMPNo results found for: NA, K, CA, CL, BUN, CREAT, GLU, TCO2 Skin (+) Current IV access Endo/Other Negative Endo/Other ROS Other AUDITOR TAX Comments: 19yo : -GBS positive -varicella/rubella NI Pediatric Pediatric N/A N/A Preoperative Medication Instructions Continue taking all prescribed medications except: VONDA inhibitors, ARBs, diuretics, all oral diabetes medications Insulin: Take 1/2 dose the night prior to surgery. Hold on DOS. Anticoagulant Therapy: Defer to surgeons Phentermine: Alert [facility] anesthesiologist MAC Cases: Continue taking VONDA inhibitors and ARBs ASA Classification ASA: 2 Current Medications: No outpatient medications have been marked as taking for the 10/26/19 encounter (Hospital Encounter). Previous Surgeries: Past Surgical History: Procedure Laterality Date INSERT CERVICAL DILATOR 10/25/2019 Anesthesia Physical Exam General alert and oriented x 3 Neuro/Psych neurological Dental no notable dental hx Abdominal (+) gravid Airway Mallampati score:II TM distance:> 5 cm Neck ROM: full Mouth opening:normal (+) Normal facies Extremity Normal extremity Pulmonary pulmonary exam normal Other Cardiovascular cardiovascular exam normal Anesthesia Plan ASA Status: 2 Plan discussed during pre-op evaluation: General, Epidural and Spinal Anesthetic plan on DOS: Epidural Anesthesia plan discussed with: patient or community health program representative Post-Operative Analgesia: routine analgesia & antiemetics Recovery Plan: PACU Additional comments: documented in this encounter Plan of Treatment Date Type Specialty Care Team Description 11/17/2019 [facility]ine [facility] [address] [place], [place] [address] [phone] Health Maintenance Due Date Last Done Comments [...] patient's age to complete this to pic PNEUMOCOCCAL 0-64 YEARS Aged Out No longe r eligible based COMBINED SERIES on patient's age to complete this to [facility] VARICELLA VACCINES Discontinued WELL CARE VISIT: 12-21 YEARS Discontinued (yearly) documented as of this encounter Procedures Procedure Name Priority Date/Time Associated Diagnosis Comme nts CENTRAL NEURAXIAL Routine 10/27/2019 12:09 AM Res ults for this BLOCK CDT procedure are i n the results section. documented in this encounter Results Central Neuraxial Block (10/27/2019 12:09 AM CDT) Narrative Performed At Adarsh Whitlock DO 10/27/2019 12:22 A M Central Neuraxial Block Performed by: Adarsh Whitlock DO Authorized by: Arsen Baum MD Start Time: 10/27/2019 12:09 AM Reason for Block: Patient request and Labor analgesia Staff: Anesthesiologist: Arsen Baum MD Resident/COREMAKER: Edmond Maya DO Performed by: Resident/COREMAKER patient identified, IV checked, risks a nd benefits explained, monitors and equipment checked, timeout performed , ob surgical consent/approval, pre-op evaluation, surgical consent, sit e marked and anesthesia consent Epidural: Patient Position: Sitting Prep: Betadine and patient draped Monitoring: Heart rate, satellite project site monitor / EKG, co ntinuous pulse ox, heart rate / toco and NIBP Location: Lumbar (1-5) Lumbar: L3-L4 Approach: Midline Injection Technique: GENARO saline Needle and Epidural Catheter: Epidural Kit: BBraun Needle Type: Tuohy Needle Length: 3.5 in (8.89 cm) Needle Insertion Depth: 5.5 Catheter Type: Multiport Catheter Size: 19 G Catheter at Skin Depth: 9 Test Dose: Lidocaine 1.5% with epineph rine 1-to-200,000 Notes: Patient prepped and draped in sterile fashion. W heal made in skin with local anesthetic. Negative aspiration of CSF x2 and test dose negative. The patient was placed at 30 degrees and connected to the epidural pump. Remote given to patient and all question s were answered. Counseled the patient on fall risk. The patient tolera axel the procedure without complications. Pump Settings: PIB mode Continuous 1mL/hr 4 mL intermittent bolus every 20 min 4 mL request dose bolus 15 min lockout 28 mL max dose/hr ___ __ documented in this encounter Administered Medications Medication Order MAR Action Action Date Dose Rate Site FENTanyl 2 mcg/mL + New Bag 10/27/2019 12:18 AM CDT 13 mL/hr 13 mL/hr bupivacaine 0.1% in NS 250 mL epidural bag Intra-op lidocaine-epinephrine (XYLOCAINE Given 10/27/2019 12:13 AM CDT 3 mL W/EPINEPHRINE) 1.5 %-1:200,000 injection ONCE INTRA PROCEDURE, Starting 10/27/19 at 0013, Until 10/27/19 at 1950, Routine, Intra-op documented in this encounter Insurance Payer Benefit Plan / Subscriber ID Effective Dates Phone Addre ss Type Group [facility] [id number] 2019-Present Medicaid COMM PLAN - MANAGED MEDICAID (Home) Appt [address] [place], [place] [address] documented as of this encounter Advance Directives Name Relationship Healthcare Agent Relationship Co mmunication Berry Guerrero Significant Other Health Care Agent
--- OUTSIDE RECORDS SUMMARY | 2019-11-20 03:10 | XMS REPORT | Summary of Care ---
:1999 Author Organization [facility] Address [address] [place] [address] Care Team Providers Name Role Phone Maryam Bennett Primary Care Provider Encounter Details Date Type Department Care Team Description 10/26/2019 Orders Only [facility] Doctor Unassigned, No [address] [facility] [place] [address] [address] [place] [address] Allergies No Known Allergiesdocumented as of this encounter (statuses as of 11/11/2019) Medications Medication Sig Dispensed Refills Start Date [...] as of this encounter (statuses as of 11/11/2019) Active Problems Problem Noted Date Laceration, obstetrical, [...] as of this encounter (statuses as of 11/11/2019) Resolved Problems Problem Noted Date Resolved Date Vaginal yeast infection 06/10/2019 09/01/2019 documented as of this encounter (statuses as of 11/11/2019) Immunizations Name Administration Dates Next Due Influenza [...] 11/17/2019 Routine [facility] [address] [address] [phone] Health Maintenance Due Date Last Done Comments INFLUENZA VACCINE (#1) 2019 03/19/2019 HPV VACCINES (2 - 3-dose 11/26/2019 10/29/2019 series) MENINGOCOCCAL B VACCINES (1 03/18/2020 Post poned from of 2 - Risk Bexsero 2-dose 07/09 ( or series) ) CHLAMYDIA SCREENING 10/05/2020 10/06/2019, 03/19/2019 Depression Screening 10/14/2020 10/15/2019 DTaP,Tdap,and Td Vaccines (2 08/17/2029 08/18/2019 - Td) VARICELLA VACCINES Discontinued 10/29/2019 MENINGOCOCCAL VACCINE Aged Out No longer eligible based on patient's age to complete this to pic PNEUMOCOCCAL 0-64 YEARS Aged Out No longe r eligible based COMBINED SERIES on patient's age to complete this to pic WELL CARE VISIT: 12-21 YEARS Discontinued (yearly) documented as of this encounter Procedures Procedure Name Priority Date/Time Associated Diagnosis Comme nts HOSPITAL ADMISSION Routine 10/26/2019 12:01 AM CDT documented in this encounter Results Not on filedocumented in this encounter Insurance Payer Benefit Plan / Subscriber ID Effective Dates Phone Addre ss Type Group [facility] [id number] 2019-Present Medicaid COMM PLAN - MANAGED MEDICAID documented as of this encounter Advance Directives Name Relationship Healthcare Agent Relationship Co mmunication Berry Guerrero Significant Other Health Care Agent
--- OUTSIDE RECORDS SUMMARY | 2019-11-20 03:10 | XMS REPORT | Summary of Care ---
:1999 Author Organization [facility] Address [address] [place] [address] Care Team Providers Name Role Phone Maryam Bennett Primary Care Provider Encounter Details Date Type Department Care Team Description 10/25/2019 Hospital Encounter Labor and Delivery Klein 39 weeks gestation (J3C) Sven, of [address] [place] [address] MD Levar Deleon [address] [place], [place] [id number] [place], [place] [phone] [id number] Allergies No Known Allergiesdocumented as of this encounter (statuses as of 10/25/2019) Medications Medication Sig Dispensed Refills Start Date End Date Status PNV 67-iron Take 1 capsule 30 capsule 11 04/16/2019 10/25/2019 Discontinued ps-folate no.1-dha by mouth (VITAFOL ULTRA) 29 daily. mg iron- 1 mg-200 mg CapIndications: Supervision of high risk in first trimester proMETHazine 25 mg Take 1 tablet 30 tablet 3 04/16/20192019 Discontinued tabletIndications: by mouth every Nausea and 4 (four) hours vomiting during as needed for Nausea and Vomiting (N/V). ascorbic acid, Take 1 tablet 90 tablet 2 08/04/2019 10/25/2019 Discontinued vitamin C, 500 mg by mouth 3 tabletIndications: (three) times Anemia of mother daily. in , antepartum ferrous sulfate Take 1 tablet 60 tablet 3 08/04/2019 0 Discontinued 325 mg (65 mg by mouth 2 iron) (two) times tabletIndications: daily. Anemia of mother in , antepartum documented as of this encounter (statuses as of 10/25/2019) Active Problems Problem Noted Date 39 weeks gestation of 10/25/2019 Group B [...] as of this encounter (statuses as of 10/25/2019) Resolved Problems Problem Noted Date Resolved Date Vaginal yeast infection 06/10/2019 09/01/2019 documented as of this encounter (statuses as of 10/25/2019) Immunizations Name Administration Dates Next Due Influenza [...] been in contact with No / Unsure 10/25/2019 7:00 PM CDT someone who was confirmed or suspected to have Coronavirus / COVID-19? documented as of this encounter Last Filed Vital Signs Vital Sign Reading Time Taken Comments Blood Pressure 123/75 10/25/2019 9:30 PM CDT Pulse 72 10/25/2019 9:30 PM CDT Temperature 36.8 C (98.3 F) 10/25/2019 7:30 PM CDT Respiratory Rate 18 10/25/2019 7:30 PM CDT Oxygen Saturation 99% 10/25/2019 9:30 PM CDT Inhaled Oxygen Concentration - - Weight - - Height - - Body Mass Index - - documented in this encounter Progress Notes Natalie Rico CNM - 10/25/2019 9:49 PM CDTPt randomized to outpatient arm of Homecare study. Renee Colvinronically signed by Natalie Rico CNM at 10/25/2019 9:50 PM CDTdocumented in this encounter Procedure Notes Natalie Rico CNM - 10/25/2019 9:13 PM CDTProcedure(s): INSERT CERVICAL DILATORPre-Procedure Diagnose(s): 39 weeks gestation of pregnancyPost-Procedure Diagnose(s): 39 weeks gestation of Loida Oakes is a 19 year old female 39w0d Diapan insertion: Insertion date and time: 10/25/20192112 6 x dilapan placed in the normal sterile fashion. 1guaze Ring forceps to grasp cervix was used Please use the table below for: SVE /-2 CERVIX: Consistency : moderately soft; Position: posterior, Station: -2 Renee Colvinronically signed by Natalie Rico CNM at 10/25/2019 9:30 PM CDTdocumented in this encounter Miscellaneous Notes Care Plan - Sanna Hinton RN - 10/25/2019 7:47 PM CDT Problem: Intrapartum process (including labor pain) Goal: Absence of or reduction of complications of labor Outcome: Progressing as expected Goal: Able to cope with pain Outcome: Progressing as expected Goal: Adequate to move to next level of care Outcome: Progressing as expected Goal: Reduction in pain sensation Outcome: Progressing as expected Problem: Infection Risk Goal: Absence of infection Outcome: Progressing as expected documented in this [...] on patient's age to complete this to [facility] VARICELLA VACCINES Discontinued WELL CARE VISIT: 12-21 YEARS Discontinued (yearly) documented as of this encounter Procedures Procedure Name Priority Date/Time Associated Diagnosis Comme nts COVID-19 (ID NOW MARIE 10/25/2019 7:11 PM Resu lts for this RAPID TESTING) CDT procedure are in the results section. documented in this encounter Results COVID-19 (ID NOW RAPID TESTING) (10/25/2019 7:11 PM CDT) SARS-CoV-2 Rapid ID Not Detected Not Detected [facility] Specimen Swab - NASOPHARYNGEAL SWAB Narrative Performed At ID NOW COVID-19 Assay is an isothermal nucleic acid [facility] amplification test intended for the qualitative detect ion of nucleic acid from SARS-CoV-2 viral RNA in nasopharynge al ([employer]) specimens. It is used under Emergency Use Authori zation (EUA) by FDA. The limit of detection (LOD) of the assa y is 125 Genome Equivalents/mL. A positive result is indicative of the presence of SARS-CoV-2 RNA. Clinical correlation with patient hi story and other diagnostic information is necessary to deter mine patient infection status. A negative (Not Detected) result does not preclude SARS-CoV-2 infection. In patients with clinical sympto ms and other tests that are consistent with SARS-CoV-2 infect ion, negative results should be treated as presumptive nega tive and a new specimen should be tested with alternative P CR molecular test. Invalid: Please collect a new specimen for repeat conchita ent testing if clinically indicated. Performing Organization Address City/State/Zipcode Phone Number [facility] CLIA: [id number] [place] [address] [place] [address] documented in this encounter Visit Diagnoses Diagnosis 39 weeks gestation of - Primar y state, incidental Rubella non-immune status, antepartum Other specified complication, antepartum Susceptible to varicella (non-immune), c urrently Supervision of other high-risk Group B streptococcal carriage complicat ing Anemia of mother in , antepartu m Anemia, antepartum documented in this encounter Additional Health Concerns Infection Onset Date Last Indicated Resolved Time COVID-19 Rule Out 10/25/2019 10/25/2019 10/25/2019 8: 07 PM CDT documented as of this encounter Insurance Payer Benefit Plan / Subscriber ID Effective Dates Phone Addre ss Type Group [facility] [id number] 2019-Present Medicaid COMM PLAN - MANAGED MEDICAID [id number] 1 documented as of this encounter Advance Directives Name Relationship Healthcare Agent Relationship Co mmunication Berry Guerrero Significant Other Health Care Agent
--- OUTSIDE RECORDS SUMMARY | 2019-11-20 03:11 | XMS REPORT | Summary of Care ---
:2000 Author Organization [facility] Address [address] [place] [address] Care Team Providers Name Role Phone Maryam Bennett [facility] Primary Care Provider Reason for Visit Reason Comments Assessment fever Encounter Details Date Type Department Care Team Description 11/13/2019 Telephone [facility]- Maryam Bennett, Ass essment (fever) [facility] [address] [facility] [address] [place] [address] [address] [place] [address] [phone] Allergies No Known Allergiesdocumented as of this encounter (statuses as of 11/13/2019) Medications Medication Sig Dispensed Refills Start Date [...] as of this encounter (statuses as of 11/13/2019) Active Problems Problem Noted Date Laceration, obstetrical, [...] as of this encounter (statuses as of 11/13/2019) Resolved Problems Problem Noted Date Resolved Date Vaginal yeast infection 06/10/2019 09/01/2019 documented as of this encounter (statuses as of 11/13/2019) Immunizations Name Administration Dates Next Due HPV9 [...] Signs Not on filedocumented in this encounter Miscellaneous Notes Telephone Encounter - Morenita Levine LVN - 11/13/2019 2:54 PM Janet Oakes is a 19 year old female Patient stated she started having chills and a headache since yesterday. Patient stated she woke up today with a fever but has not taken temperature. Patient stated her partner is going to buy a thermometer. Patient stated she took Tylenol this morning and did have some relief but headache came back. Denies any heavy bleeding, severe cramping. Offered patient appointment with covid clinic and accepted. Informed patient access center will call with appointment, verbalized understanding. elephone Encounter - Radha Amin - 11/13/2019 2:33 PM Janet Oakes is a 19 year old female Patient requesting to speak with nurse, wants to know what to do, started having chills and headacheyesterday and this morning woke up with fever. Please call patient [phone] (home) documented in this encounter Plan of Treatment Date Type Specialty Care Team Description 11/17/2019 Routine Visit [facility] Nikky Doyle, CNP [address] [address] [phone] Health Maintenance Due Date Last Done Comments [...] on patient's age to complete this to psychiatric WELL CARE VISIT: 12-21 YEARS Discontinued (yearly) documented as of this encounter Results Not on filedocumented in this encounter Insurance Payer Benefit Plan / Subscriber ID Effective Dates Phone Addre ss Type Group [facility] STAR [id number] 2019-Present Medicaid COMM PLAN - MANAGED MEDICAID documented as of this encounter Advance Directives Name Relationship Healthcare Agent Relationship Co mmunication Berry Guerrero Significant Other Health Care Agent
--- OUTSIDE RECORDS SUMMARY | 2019-11-20 03:11 | XMS REPORT | Summary of Care ---
:2000 Author Organization [facility] Address [address] [place] [address] Care Team Providers Name Role Phone Maryam Bennett Primary Care Provider Reason for Visit Reason Comments Care (Routine) Status Reason Specialty Diagnoses / Referred By Referred To Procedures Contact Contact New Request [facility] Diagnoses Rubella non-immune status, antepartum Susceptible to varicella (non-immune), currently Anemia of mother in , antepartum Group B streptococcal carriage complicating 39 weeks gestation of Dori Fontana FNP Indication for c are or intervention in labor or delivery (spontaneous vaginal delivery) Single liveborn infant delivered vaginally Laceration, obstetrical, first degree BMI 21.0-21.9, adult [address] Supervision of high risk pre gnancy in third trimester ST Procedures DISCHARGE FOLLOW-UP: [facility] [place] [address] Encounter Details Date Type Department Care Team Description 11/17/2019 Routine [facility] [place], Postp artum care and Visit ANNA Sheppard examination of [address] [place] [address] lactat ing [facility] (Primary Dx) [place], [place] [address] [address] [place], [place] [phone] Allergies No Known Allergiesdocumented as of this encounter (statuses as of 11/17/2019) Medications Medication Sig Dispensed Refills Start Date End Date Status docusate calcium 240 Take 1 capsule 60 capsule 1 10/29/2019 Active mg capsuleIndications: by mouth once Rubella non-immune daily [...] trimester ibuprofen 600 mg Take 1 tablet 60 tablet 1 10/29/2019 Active tabletIndications: by mouth every Rubella non-immune 6 (six) hours status, antepartum, as needed Susceptible to (Pain). Take varicella with food or (non-immune), milk. currently , Anemia of mother in , antepartum, Group B streptococcal carriage complicating , 39 weeks gestation of , Indication for care or intervention in labor or delivery, (spontaneous vaginal delivery), Single liveborn delivered vaginally, Laceration, obstetrical, first degree, BMI 21.0-21.9, adult, Supervision of high risk in third trimester Iron Fum & P-FA-Vit B Take 1 capsule 30 capsule 2 10/29/2019 Active & C No.9 (INTEGRA by mouth daily. PLUS) 125 mg iron- 1 mg CapIndications: Rubella [...] Supervision of high risk in third trimester cephALEXin (KEFLEX) Take 1 capsule 21 capsule 0 11/13/201901/2020 Active 500 mg by mouth 3 capsuleIndications: (three) times Fever, unspecified daily for 7 fever cause days. documented as of this encounter (statuses as of 11/17/2019) Active Problems Problem Noted Date care and examination of lactating mother Laceration, obstetrical, minor 10/28/2019 Anemia of mother in , antepartum 08/04/2019 Rubella non-immune status, antepartum 03/20/2019 Susceptible to varicella (non-immune), currently pregn ant 03/20/2019 documented as of this encounter (statuses as of 11/17/2019) Resolved Problems Problem Noted Date Resolved Date (spontaneous vaginal delivery) 10/27/201911/16 Single liveborn infant delivered vaginally 10/27/2019 11/17/2019 Chorioamnionitis 10/27/2019 11/17/2019 Indication for care or intervention in labor or delivery-IOL 10/26/2019 11/17/2019 39 weeks gestation of 10/25/2019 11/17/19 Group B streptococcal carriage complicating 201911/17/2019 Vaginal yeast infection 06/10/2019 09/01/2019 BMI 21.0-21.9, adult 03/19/2019 11/17/2019 Supervision of high risk in third trimester 201911/17/2019 documented as of this encounter (statuses as of 11/17/2019) Immunizations Name Administration Dates Next Due HPV9 [...] drinks on one occasion? No t asked Sex Assigned at Date Recorded Not on file COVID-19 Exposure Response Date Recorded In the last month, have you been in contact with No / Unsure 11/17/2019 11:29 AM CDT someone who was confirmed or suspected to have Coronavirus / COVID-19? documented as of this encounter Last Filed Vital Signs Vital Sign Reading Time Taken Comments Blood Pressure 104/69 11/17/2019 11:29 AM CDT Pulse 77 11/17/2019 11:29 AM CDT Temperature 36.4 C (97.5 F) 11/17/2019 11:29 AM CDT Respiratory Rate 16 11/17/2019 11:29 AM CDT Oxygen Saturation - - Inhaled Oxygen Concentration - - Weight 54.9 kg (121 lb) 11/17/2019 11:29 AM CDT Height 154.9 cm (5' 1") 11/17/2019 11:29 AM CDT Body Mass Index 22.86 11/17/2019 11:29 AM CDT documented in this encounter Progress Notes Kristal Doyle, WHCNP - 11/17/2019 11:00 AM CDT Chief complaint: Chief Complaint Patient presents with Care HPI The patient is here for a routine PP visit. She has no complaints today. She states that she is her infant, is bonding well, and coping well with less sleep. She reports that she has no pain, small lochia, and denies all s/s of PP depression. She wants depo for PP contraception. Histories OB History Para Term AB Living [...] Alive MGFa Alive PGMo Alive PGFa Alive Past Surgical History: Procedure Laterality Date INSERT CERVICAL DILATOR 10/25/2019 Social History Socioeconomic History Marital status: Single [...] file Gets together: Not on file Attends roman catholic service: Not on file Active member of [...] Concern Not on file Social History Narrative [facility] preference is none. Patient lives with partner. Patient has 1 cat, partner does litter box. Social History Substance and Sexual Activity Sexual Activity Yes Partners: Male control/protection: None Comment: last sexual intercourse 03/14/2019 Labs No new labs and Admission on 11/13/2019, Discharged on 11/13/2019 Component Date Value WBC 11/13/2019 11.49* RBC 11/13/2019 4.53 HGB 11/13/2019 13.9 HCT 11/13/2019 39.7 MCV 11/13/2019 87.6 MCH 11/13/2019 30.7 MCHC 11/13/2019 35.0 RDW-SD 11/13/2019 38.5* RDW-CV 11/13/2019 11.9* PLT 11/13/2019 367* MPV 11/13/2019 9.0* NRBC/100 WBC 11/13/2019 0.0 NRBC x10^3 11/13/2019 <0.01 GRAN MAT (NEUT) % 11/13/2019 88.1 IMM GRAN % 11/13/2019 0.30 LYMPH % 11/13/2019 7.4 MONO % 11/13/2019 4.0 EOS % 11/13/2019 0.0 BASO % 11/13/2019 0.2 GRAN MAT x10^3(ANC) 11/13/2019 10.13* IMM GRAN x10^3 11/13/2019 0.03 LYMPH x10^3 11/13/2019 0.85* MONO x10^3 11/13/2019 0.46 EOS x10^3 11/13/2019 <0.03* BASO x10^3 11/13/2019 <0.03 NA 11/13/2019 136 K 11/13/2019 3.5 CL 11/13/2019 100 CO2 TOTAL 11/13/2019 23 AGAP 11/13/2019 13 BUN 11/13/2019 9 GLUCOSE 11/13/2019 124* CREATININE 11/13/2019 0.56 CALCIUM 11/13/2019 8.7 eGFR Calculation (Non-Af* 11/13/2019 138.0 eGFR Calculation ([place]* 11/13/2019 167.3 APPEARANCE 11/13/2019 Hazy* COLOR 11/13/2019 Yellow PH 11/13/2019 5.0 SP GRAVITY 11/13/2019 1.030 GLU U QUAL 11/13/2019 Normal BLOOD 11/13/2019 2+* KETONES 11/13/2019 Negative PROTEIN 11/13/2019 100 mg/dL* UROBILIN 11/13/2019 2.0 mg/dL* BILIRUBIN 11/13/2019 Negative NITRITE 11/13/2019 Negative LEUK ENZO 11/13/2019 250/uL* RBC/HPF 11/13/2019 116* WBC/HPF 11/13/2019 51* BACTERIA 11/13/2019 Few* MUCOUS 11/13/2019 Slight* SQ EPITH 11/13/2019 1 SARS-CoV-2 Rapid ID NOW 11/13/2019 Not Detected LACTIC ACID 11/13/2019 2.12 Urgent Care on 11/13/2019 Component Date Value SARS-CoV-2 PCR 11/13/2019 Not Detected Admission on 10/26/2019, Discharged on 10/29/2019 Component Date Value HBsAg 10/26/2019 Negative HBsAg Semi-Quantitative 10/26/2019 0.09 Syphilis IgG/IgM 10/26/2019 Non-reactive ABO & RH 10/26/2019 B POSITIVE IAT 10/26/2019 Negative HIV 1/2 Ag-Ab with Reflex 10/26/2019 Negative HIV Semi-quantitative 10/26/2019 0.07 RHIG CANDIDATE? 10/26/2019 No- see comment Admission on 10/25/2019, Discharged on 10/25/2019 Component Date Value SARS-CoV-2 Rapid ID NOW 10/25/2019 Not Detected Routine Visit on 10/22/2019 Component Date Value POCT U SP GRAV 10/22/2019 . POCT PH U 10/22/2019 . POCT U LEUK EST 10/22/2019 . POCT U NIT 10/22/2019 . POCT U PROT 10/22/2019 trace POCT U GLU 10/22/2019 neg POCT U KETONE 10/22/2019 . POCT U UROBILI 10/22/2019 . POCT U BILI 10/22/2019 . POCT U BLD 10/22/2019 . Routine Visit on 10/15/2019 Component Date Value POCT U SP GRAV 10/15/2019 . POCT PH U 10/15/2019 . POCT U LEUK EST 10/15/2019 . POCT U NIT 10/15/2019 . POCT U PROT 10/15/2019 trace POCT U GLU 10/15/2019 neg POCT U KETONE 10/15/2019 . POCT U UROBILI 10/15/2019 . POCT U BILI 10/15/2019 . POCT U BLD 10/15/2019 . Routine Visit on 10/06/2019 Component Date Value [...] 09/29/2019 . POCT U BLD 09/29/2019 . Routine Visit on 09/01/2019 Component Date Value POCT U SP GRAV 09/01/2019 . POCT PH U 09/01/2019 . POCT U LEUK EST 09/01/2019 . POCT U NIT 09/01/2019 . POCT U PROT 09/01/2019 trace POCT U GLU 09/01/2019 neg POCT U KETONE 09/01/2019 . POCT U UROBILI 09/01/2019 . POCT U BILI 09/01/2019 . POCT U BLD 09/01/2019 . Routine Visit on 08/18/2019 Component Date Value HIV 1/2 Ag-Ab with Reflex 08/18/2019 Negative HIV Semi-quantitative 08/18/2019 0.05 Syphilis IgG/IgM 08/18/2019 Non-reactive POCT U SP GRAV 08/18/2019 . POCT PH U 08/18/2019 . POCT U LEUK EST 08/18/2019 . POCT U NIT 08/18/2019 . POCT U PROT 08/18/2019 trace POCT U GLU 08/18/2019 negative POCT U KETONE 08/18/2019 . POCT U UROBILI 08/18/2019 . POCT U BILI 08/18/2019 . POCT U BLD 08/18/2019 . There may be more visits with results that are not included. Radiology No new radiology. Allergies [place] has No Known Allergies. Medications [place] has a current medication list which includes the following prescription(s): cephalexin, docusate calcium, ibuprofen, and integra plus. Review of Systems Constitutional: Negative. HENT: Negative. Eyes: Negative. Respiratory: Negative. Breasts: Negative. Cardiovascular: Negative. Gastrointestinal: Negative. Genitourinary: Positive for vaginal bleeding. Musculoskeletal: Negative. Skin: Negative. Neurological: Negative. Psychiatric/Behavioral: Negative. Endocrine: Endocrine negative BP 104/69 (BP Location: Right arm, Patient Position: Sitting, BP CUFF SIZE: Adult Medium) | Pulse 77 | Temp 36.4 C (97.5 F) (Oral) | Resp 16 | Ht 5' 1" (1.549 m) | Wt 121 lb (54.9 kg) | LMP 01/25/2019 (Exact Date) | BMI 22.86 kg/m Pregravid BMI: 20.80 Physical Exam Vitals reviewed. Constitutional: She is oriented to person, place, and time. She appears well- developed, well-nourished and well-groomed. Cardiovascular: Regular rate and rhythm. No peripheral edema present. Pulmonary/Chest: Normal inspiratory effort. Abdominal: Abdomen is soft. Normal appearance. No mass palpated. No tenderness present. There is no hepatosplenomegaly, splenomegaly or hepatomegaly. There is no rigidity and no guarding. No hernia palpated or inspected. Fundus firm Neuro/Psychiatric: She has a normal mood and affect. She is oriented to person, place, and time. Skin: Skin normal. Breast: Right breast exhibits nipple discharge. Right breast exhibits no mass and no tenderness. Left breast exhibits nipple discharge. Left breast exhibits no mass and no tenderness. Breasts are symmetrical. Lactating Normal left breast and normal right breast Rectal: Rectal exam with normal anal tone. No mass, no external hemorrhoid and no internal hemorrhoid palpated or inspected. normal rectum External genitalia: Normal external genitalia appropriate for age. Normal hair distribution. No labial lesion. Vagina:No lesion inspected. Normal estrogen effect. Normal support. Vaginal discharge found. No lesions in the vagina. Lochia WNL small rubra Uterus: Uterus is normal size, normal contour, normal position and non-tender. Involution WNLNormal uterus Assessment/Plan Return to clinic in 3 weeks. care and examination of lactating mother (primary encounter diagnosis) Comment: routine Plan: return in 3 weeks This visit did not involve counseling and coordination that comprised more than 50% of the visit time. ANNA Kaminski 11/17/2019 11:47 AM Natasha Hernandez - 11/17/2019 11:00 AM CDTPt in clinic today for 3 wk pp visit. 1) Delivery method Vaginal. 2) Patient delivered on 10/27/2019. at [place] 3) Patient is currently . 4) Desired BCM: depo. 5) Patient denies pp depression. Natasha Hernandez 11/17/2019 11:31 AM documented in this encounter Plan of Treatment [...] on patient's age to complete this to [facility] PNEUMOCOCCAL 0-64 YEARS Aged Out No longe r eligible based COMBINED SERIES on patient's age to complete this to [facility] WELL CARE VISIT: 12-21 YEARS Discontinued (yearly) documented as of this encounter Results Not on filedocumented in this encounter Visit Diagnoses Diagnosis care and examination of lacta ting mother - Primary documented in this encounter Insurance Payer Benefit Plan / Subscriber ID Effective Dates Phone Addre ss Type Group [facility] STAR [id number] 2019-Present Medicaid COMM PLAN - MANAGED MEDICAID [id number] documented as of this encounter Advance Directives Name Relationship Healthcare Agent Relationship Co mmunication Berry Guerrero Significant Other Health Care Agent
--- OUTSIDE RECORDS SUMMARY | 2019-11-20 03:11 | XMS REPORT | Summary of Care ---
:2000 Author Organization [facility] - [facility] Address [address] [place] [address] Care Team Providers Name Role Phone Maryam Bennett Primary Care Provider Reason for Visit Reason Comments Fever Auth/Cert Status Reason Specialty Diagnoses / Referred By Referred To Procedures Contact Contact Emergency Medicine [facility] Em ergency Dept [address] [place] [address] Fax: Encounter Details Date Type Department Care Team Description 11/13/2019 Emergency ADC-Emergency Reva Bennett, Fever, unspecified Department DO fever cause (Primary [address]) [place], [place] [address] [place] [address] [phone] Allergies No Known Allergiesdocumented as of this [...] been in contact with No / Unsure 11/13/2019 5:09 PM CDT someone who was confirmed or suspected to have Coronavirus / COVID-19? documented as of this encounter Last Filed Vital Signs Vital Sign Reading Time Taken Comments Blood Pressure 100/63 11/13/2019 6:00 PM CDT Pulse 91 11/13/2019 6:00 PM CDT Temperature 36.4 C (97.6 F) 11/13/2019 6:00 PM CDT Respiratory Rate 15 11/13/2019 6:00 PM CDT Oxygen Saturation 99% 11/13/2019 6:00 PM CDT Inhaled Oxygen Concentration - - Weight 52.2 kg (115 lb) 11/13/2019 5:09 PM CDT Height 154.9 cm (5' 1") 11/13/2019 5:09 PM CDT Body Mass Index 21.73 11/13/2019 5:09 PM CDT documented in this encounter Discharge Instructions InstructionsWilliams, Reva J, DO - 11/13/2019DIAGNOSIS 1. Fever 2. UTI NO LIFE-THREATENING FINDINGS ON TODAY'S EXAM. PROCEDURES IN THE ER TODAY: Blood work Urine test COVID test MEDICATIONS ADMINISTERED IN THE ER TODAY: IV fluids Tylenol YOUR PRESCRIPTIONS AND DESO-IYI-DNOADIK MEDICATION RECOMMENDATIONS: Keflex by mouth three times a day. Please complete your entire course of antibiotics. SPECIAL CARE INSTRUCTIONS: None FOLLOW-UP RECOMMENDATIONS: RECOMMEND FOLLOW-UP WITH A PRIMARY CARE PROVIDER OR SPECIALIST IN 2-5 DAYS, ESPECIALLY IF NO IMPROVEMENT IN SYMPTOMS. TO FOLLOW-UP WITHIN THE [facility], TRY THESE OPTIONS (CLINIC APPOINTMENTS AVAILABLE ON [id number] BASIS): 1. SCHEDULE AN APPOINTMENT ONLINE AT [email or web address] 2. OR CALL THE [facility] ACCESS CENTER AT OR 3. OR CALL YOUR [facility] PHYSICIAN'S OFFICE DIRECTLY IF YOU ARE ALREADY AN ESTABLISHED [facility] PATIENT. OR, YOU MAY FOLLOW-UP WITH A PROVIDER OF YOUR CHOICE, SUCH : 1. A PHYSICIAN OF YOUR CHOICE 2. [facility], . LOCATIONS IN [facility] 3. [facility], [address] [place] [address]; [phone] RETURN TO ER FOR WORSENING OF SYMPTOMS. AttachmentsThe following attachments cannot be sent through Care Everywhere. Febrile Illness, Uncertain Cause (Adult) (Guatemalan)Bladder Infection, Female (Adult) (Guatemalan)documented in this encounter ED Notes Teresa Manning RN - 11/13/2019 5:07 PM CDTFever since this AM. States she recently had vaginal delivery. Took Tylenol at 1530, temp during triage 101.1F oral. Patient went to clinic today for evaluation of fever, they told her she was hypotensive (80/50) and should be evaluated in ED. Clinic did PCR COVID swab before bringing her to ED. eva Bennett DO - 11/13/2019 5:05 PM CDT [facility] Emergency Department Note Patient Name: Loida Oakes Date of : 2000 19 year old female Treatment Room: TN4/TN4 Primary Care Physician: Maryam Bennett Patient Escorted by: Self [9] Mode of Arrival: Personal means [1] EMS Treatment Prior to ED Arrival: Travel and Exposure Screening: Symptoms Does patient have any of these symptoms?: (not recorded) Exposure Screening Has patient had contact with someone with a communicable disease in the last month?: (not recorded) Diseases exposed to:: (not recorded) Is Patient ?: (not recorded) Exposure Date: (not recorded) Chief Complaint: Chief Complaint Patient presents with Fever History of Present Illness: Patient presents for eval for fever today. Denies cough, congestion URI sx. No abd pain. No dysuria. No vaginal discharge or odor. Had a about 2 weeks ago and has not seen employee relations assistant since. States pain gone and some vaginal bleeding still. Is breast feeding and denies breast pain. Had Motrin around 1530. No sick contacts. Made appointment with the clinic as she had a fever today and found to be hypotensive in the 80s and tachycardic so sent for eval. Past Medical History/Immunizations: Past Medical History: Diagnosis Date Anemia of mother in , antepartum 08/04/2019 Vaginal yeast infection 06/10/2019 Tetanus received in last 5 years: Yes Childhood immunizations: Up-to-date Allergies: No Known Allergies Past Social History: Tobacco Use Never smoked or used smokeless tobacco. Alcohol Use Never. Frequency of alcohol consumption: Never Drug Use Never. Sexual Activity Sexually active; Partners: Male; Control/Protection: None. Comments: last sexual intercourse 03/14/2019 Past Surgical History: Past Surgical History: Procedure Laterality Date INSERT CERVICAL DILATOR 10/25/2019 Review of Systems: Review of Systems Constitutional: Positive for fever. Negative for chills. Respiratory: Negative for shortness of breath. Cardiovascular: Negative for chest pain. Gastrointestinal: Negative for abdominal pain, nausea and vomiting. Genitourinary: Negative for dysuria. Musculoskeletal: Negative for arthralgias, neck pain and neck stiffness. Neurological: Negative for dizziness. Psychiatric/Behavioral: Negative for agitation. Endocrine: Negative for goiter. Physical Exam: ED Triage Vitals [11/13/19 1709] Weight 52.2 kg (115 lb) Actual or estimated Estimated by patient/family report Height 1.549 m (5' 1") BP 107/69 Pulse 110 Resp 19 Temp 38.4 C (101.1 F) Temp source Oral SpO2 97 % Measured on Room air Physical Exam Vitals signs and nursing note reviewed. Constitutional: Appearance: Normal appearance. She is normal weight. HENT: Head: Normocephalic and atraumatic. Nose: Nose normal. Neck: Musculoskeletal: Normal range of motion and neck supple. Cardiovascular: Rate and Rhythm: Normal rate. Pulmonary: Effort: Pulmonary effort is normal. No respiratory distress. Abdominal: General: Abdomen is flat. There is no distension. Palpations: There is no mass. Tenderness: There is no abdominal tenderness. There is no guarding or rebound. Genitourinary: Exam position: Supine. Labia: Right: No rash or tenderness. Left: No rash or tenderness. Cervix: No cervical motion tenderness or discharge. Uterus: Normal. Not tender. Adnexa: Right adnexa normal and left adnexa normal. Right: No tenderness. Left: No tenderness. Musculoskeletal: Normal range of motion. Skin: General: Skin is warm and dry. Neurological: General: No focal deficit present. Mental Status: She is alert. Psychiatric: Mood and Affect: Mood normal. Radiology: No results found for this visit on 11/13/19. Lab Results (24h): Recent Results (from the past 24 hour(s)) CBC with Differential Collection Time: 11/13/19 5:13 PM Result Value Ref Range WBC 11.49 (H) 4.30 - 11.10 10*3/L RBC 4.53 3.93 - 5.25 10*6/L HGB 13.9 11.6 - 15.0 g/dL HCT 39.7 35.7 - 45.2 % MCV 87.6 80.6 - 95.5 fL MCH 30.7 25.9 - 32.8 pg MCHC 35.0 31.6 - 35.1 g/dL RDW-SD 38.5 (L) 39.0 - 49.9 fL RDW-CV 11.9 (L) 12.0 - 15.5 % PLT 367 (H) 166 - 358 10*3/L MPV 9.0 (L) 9.5 - 12.9 fL NRBC/100 WBC 0.0 0.0 - 10.0 /100 WBCs NRBC x10^3 <0.01 10*3/L GRAN MAT (NEUT) % 88.1 % IMM GRAN % 0.30 % LYMPH % 7.4 % MONO % 4.0 % EOS % 0.0 % BASO % 0.2 % GRAN MAT x10^3(ANC) 10.13 (H) 1.88 - 7.09 10*3/uL IMM GRAN x10^3 0.03 0.00 - 0.06 10*3/uL LYMPH x10^3 0.85 (L) 1.32 - 3.29 10*3/uL MONO x10^3 0.46 0.33 - 0.92 10*3/uL EOS x10^3 <0.03 (L) 0.03 - 0.39 10*3/uL BASO x10^3 <0.03 0.01 - 0.07 10*3/uL Basic Metabolic Panel (NA, K, CL, CO2, GLUCOSE, BUN, CREATININE, CA) Collection Time: 11/13/19 5:13 PM Result Value Ref Range NA 136 135 - 145 mmol/L K 3.5 3.5 - 5.0 mmol/L CL 100 98 - 108 mmol/L CO2 TOTAL 23 23 - 31 mmol/L AGAP 13 2 - 16 BUN 9 7 - 23 mg/dL GLUCOSE 124 (H) 70 - 110 mg/dL CREATININE 0.56 0.50 - 1.04 mg/dL CALCIUM 8.7 8.6 - 10.6 mg/dL eGFR Calculation (Non-) 138.0 mL/min/1.73m2 eGFR Calculation () 167.3 mL/min/1.73m2 COVID-19 (ID NOW RAPID TESTING) Collection Time: 11/13/19 5:13 PM Specimen: NASOPHARYNGEAL SWAB Result Value Ref Range SARS-CoV-2 Rapid ID NOW Not Detected Not Detected Urinalysis Collection Time: 11/13/19 5:18 PM Result Value Ref Range APPEARANCE Hazy (A) Clear COLOR Yellow Yellow PH 5.0 4.8 - 8.0 SP GRAVITY 1.030 1.003 - 1.030 GLU U QUAL Normal Normal BLOOD 2+ (A) Negative KETONES Negative Negative PROTEIN 100 mg/dL (A) Negative UROBILIN 2.0 mg/dL (A) Normal BILIRUBIN Negative Negative NITRITE Negative Negative LEUK ENZO 250/uL (A) Negative RBC/HPF 116 (H) 0 - 3 HPF WBC/HPF 51 (H) 0 - 5 HPF BACTERIA Few (A) Negative MUCOUS Slight (A) Negative LPF SQ EPITH 1 HPF Lactic Acid Whole Blood Collection Time: 11/13/19 5:18 PM Result Value Ref Range LACTIC ACID 2.12 mmol/L Orders and Treatments: Orders Placed This Encounter Procedures CBC with Differential Basic Metabolic Panel (NA, K, CL, CO2, GLUCOSE, BUN, CREATININE, CA) Urinalysis COVID-19 (ID NOW RAPID TESTING) Lactic Acid Whole Blood Orders Placed This Encounter Medications NaCl 0.9% (NS) bolus infusion 1,000 mL acetaminophen (TYLENOL) tablet 650 mg cephALEXin (KEFLEX) 500 mg capsule ED COURSE patient presents for eval for fever today. Denies other complaints. No abd pain. No cough or URI sx. No dysuria. Had about 2 weeks ago but has not followed up with employee relations assistant yet - appointment nextweek. Today with fever. Had Motrin at 1530 and went to clinic where she was found to have SBP 80s and sent for eval. Denies feeling dizzy or lightheaded. Febrile upon arrival but not hypotensive here. Abdomen soft and not tender. Low concern for endometritis. Will check labs and urine Will screen for covid. Will give IV fluids and Tylenol. Anticipate discharge home later. 1840 - labs show no leukocytosis. covid negative. UA shows possible infection. Pelvic exam shows no concern for endometritis. Will treat for UTI. Stable here in the EC and is ok for discharge home with photoengraving proofer f/u as scheduled next week. MDM: Coding Diagnosis/Impression: ICD-10-CM ICD-9-CM 1. Fever, unspecified fever cause R50.9 780.60 Disposition/Condition: ED Disposition ED Disposition Condition Comment Disch - Home Stable Discharge Medications: Patient's Medications START taking these medications CEPHALEXIN (KEFLEX) 500 MG CAPSULE Take 1 capsule by mouth 3 (three) times daily for 7 days. CONTINUE taking these medications which have NOT CHANGED DOCUSATE CALCIUM 240 MG CAPSULE Take 1 capsule by mouth once daily as needed for Constipation. IBUPROFEN 600 MG TABLET Take 1 tablet by mouth every 6 (six) hours as needed (Pain). Take with food or milk. IRON FUM & P-FA-VIT B & C NO.9 (INTEGRA PLUS) 125 MG IRON- 1 MG CAP Take 1 capsule by mouth daily. START taking Modified Medications as Prescribed No medications on file STOP taking these medications No medications on file Follow-up: Electronically signed by: Reva Bennett DO 11/13/2019 5:09 PM documented in this encounter Miscellaneous Notes ED Nurse Note - Elida Kingston, RN - 11/13/2019 6:57 PM CDTPt given printed and verbal discharge instructions regarding Fever, UTI encouraged hydration, Prescriptions provided Keflex Discussed ibuprofen and to take with food to avoid GI distress. Pt verbalized understanding of instructions, pt awake alert oriented, resp reg unlabored, skin w/d, color appropriate for race, moves all ext well,pt encouraged to follow up with pcp in three days. Advised to seek medical attention for new/prolonged/worsening of symptoms, Symptoms increase signs of infection, fever over 100.4 No adverse reaction to meds given in ER noted upon discharge PIV d'cd, dressing to site, catheter in tact. Awake, alert oriented, resp reg unlabored, skin w/d, pt leaving amb with steady gait, in no apparent distress, documented in this encounter Plan of Treatment Date Type Specialty Care Team Description 11/17/2019 Routine Visit OB Satellites [facility] [address] [address] [phone] Health Maintenance Due Date Last Done Comments [...] Name Priority Date/Time Associated Diagnosis Comme nts LACTIC ACID WHOLE STAT 11/13/2019 5:18 Fever, unspecified Results for this BLOOD PM CDT fever cause procedure are i n the results section. URINALYSIS STAT 11/13/2019 5:18 Fever, unspecified Resul ts for this PM CDT fever cause procedure are i n the results section. COVID-19 (ID NOW STAT 11/13/2019 5:13 Fever, unspecified R esults for this RAPID TESTING) PM CDT fever cause procedure are in the results section. CBC WITH DIFF STAT 11/13/2019 5:13 Fever, unspecified Resu lts for this PM CDT fever cause procedure are i n the results section. BASIC METABOLIC STAT 11/13/2019 5:13 Fever, unspecified Re sults for this PANEL (NA, K, CL, PM CDT fever cause procedure are in CO2, GLUCOSE, BUN, the resul ts CREATININE, CA) section. documented in this encounter Results Lactic Acid Whole Blood (11/13/2019 5:18 PM CDT) Pathologist Sig nature LACTIC ACID 2.12 mmol/L [facility] Specimen Blood - VENOUS Performing Organization Address City/State/Zipcode Phone Number [facility] CLIA: [id number] [place] [address] Urinalysis (11/13/2019 5:18 PM CDT) Pathologist Sig nature APPEARANCE Hazy (A) Clear [facility] COLOR Yellow Yellow [facility] PH 5.0 4.8 - 8.0 [facility] SP GRAVITY 1.030 1.003 - 1.030 [facility] GLU U QUAL Normal Normal [facility] BLOOD 2+ (A) Negative [facility] KETONES Negative Negative [facility] PROTEIN 100 mg/dL (A) Negative [facility] UROBILIN 2.0 mg/dL (A) Normal [facility] BILIRUBIN Negative Negative [facility] NITRITE Negative Negative [facility] LEUK ENZO 250/uL (A) Negative [facility] RBC/HPF 116 (H) 0 - 3 HPF [facility] WBC/HPF 51 (H) 0 - 5 HPF [facility] BACTERIA Few (A) Negative [facility] MUCOUS Slight (A) Negative LPF [facility] SQ EPITH 1 HPF [facility] Specimen Urine - URINE, CLEAN CATCH Performing Organization Address [facility] Phone Number [facility] CLIA: [id number] [place] [address] [place] [address] COVID-19 (ID NOW RAPID TESTING) (11/13/2019 5:13 PM CDT) SARS-CoV-2 Rapid ID Not Detected Not Detected [facility] Specimen Swab - NASOPHARYNGEAL SWAB Narrative Performed At ID NOW COVID-19 Assay is an isothermal nucleic [facility] acid amplification test intended for the qualitative detection of nucleic acid from SARS-CoV-2 viral RNA in nasopharyngeal (TAKE DOWN SORTER) specimens. It is used under Emergency Use Authorization (EUA) by FDA. The limit of detection (LOD) of the assay is 125 Genome Equivalents/mL. A positive result is indicative of the presence of SARS-CoV-2 RNA. Clinical correlation with patient history and other diagnostic information is necessary to determine patient infection status. A negative (Not Detected) result does not preclude SARS-CoV-2 infection. In patients with clinical symptoms and other tests that are consistent with SARS-CoV-2 infection, negative results should be treated as presumptive negative and a new specimen should be tested with alternative PCR molecular test. Invalid: Please collect a new specimen for repeat patient testing if clinically indicated. Performing Organization Address [facility]/Zipcode Phone Number [facility] CLIA: [id number] [place] [address] [place] [address] Basic Metabolic Panel (NA, K, CL, CO2, GLUCOSE, BUN, CREATININE, CA) (11/13/2019 5:13 PM CDT) Pathologist Sig nature NA 136 135 - 145 [facility] mmol/L [facility] K 3.5 3.5 - 5.0 [facility] mmol/L [facility] CL 100 98 - 108 mmol/L [facility] CO2 TOTAL 23 23 - 31 mmol/L [facility] AGAP 13 2 - 16 [facility] BUN 9 7 - 23 mg/dL [facility] GLUCOSE 124 (H) 70 - 110 mg/dL [facility] CREATININE 0.56 0.50 - 1.04 [facility] mg/dL [facility] CALCIUM 8.7 8.6 - 10.6 [facility] mg/dL [facility] eGFR Calculation 138.0 mL/min/1.73m2 [facility] (Non-[facility]AT[facility] Yemeni) eGFR Calculation 167.3 mL/min/1.73m2 [facility] () [facility] Specimen Blood - VENOUS Narrative Performed At Association of Glomerular Filtration Rate (GFR) [facility] and Staging of Kidney Disease* + + +- + | GFR (mL/min/1.73 m2) | With Kidney Damage | Without Kidney Damage + + +- + | >90 | Stage one | Normal + + +- + | 60-89 | Stage two | Decreased GFR + + +- + | 30-59 | Stage three | Stage three + + +- + | 15-29 | Stage four | Stage four + + +- + | <15 (or dialysis) | Stage five | Stage five + + +- + *Each stage assumes the associated GFR level has been in effect for at least three months. Stages 1 to 5, with or without kidney disease, indicate chronic kidney disease. Notes: Determination of stages one and two (with eGFR >59mL/min/1.73 m2) requires estimation of kidney damage for at least three months as defined by structural or functional abnormalities of the kidney, manifested by either: Pathological abnormalities or Markers of kidney damage (including abnormalities in the composition of the blood or urine or abnormalities in imaging tests). Performing Organization Address City/State/Zipcode Phone Number [facility] CLIA: [id number] [place] [address] CBC with Differential (11/13/2019 5:13 PM CDT) [facility] WBC 11.49 (H) 4.30 - 11.10 [facility] 10*3/L [facility] RBC 4.53 3.93 - 5.25 [facility] 10*6/L [facility] HGB 13.9 11.6 - 15.0 [facility] g/dL [facility] HCT 39.7 35.7 - 45.2 % [facility] MCV 87.6 80.6 - 95.5 fL [facility] MCH 30.7 25.9 - 32.8 pg [facility] MCHC 35.0 31.6 - 35.1 [facility] g/dL [facility] RDW-SD 38.5 (L) 39.0 - 49.9 fL [facility] RDW-CV 11.9 (L) 12.0 - 15.5 % [facility] PLT 367 (H) 166 - 358 [facility] 10*3/L [facility] MPV 9.0 (L) 9.5 - 12.9 fL [facility] NRBC/100 WBC 0.0 0.0 - 10.0 /100 [facility] WBCs [facility] NRBC x10^3 <0.01 10*3/L [facility] GRAN MAT (NEUT) % 88.1 % [facility] IMM GRAN % 0.30 % [facility] LYMPH % 7.4 % [facility] MONO % 4.0 % [facility] EOS % 0.0 % [facility] BASO % 0.2 % [facility] GRAN MAT x10^3(ANC) 10.13 (H) 1.88 - 7.09 [facility] 10*3/uL [facility] IMM GRAN x10^3 0.03 0.00 - 0.06 [facility] 10*3/uL [facility] LYMPH x10^3 0.85 (L) 1.32 - 3.29 [facility] 10*3/uL [facility] MONO x10^3 0.46 0.33 - 0.92 [facility] 10*3/uL [facility] EOS x10^3 <0.03 (L) 0.03 - 0.39 [facility] 10*3/uL [facility] BASO x10^3 <0.03 0.01 - 0.07 [facility] 10*3/uL [facility] Specimen Blood - VENOUS Performing Organization Address City/State/Zipcode Phone Number [facility] CLIA: [id number] [place] [address] documented in this encounter Visit Diagnoses Diagnosis Fever, unspecified fever cause - Primary documented in this encounter Administered Medications Medication Order MAR Action Action Date Dose Rate Site acetaminophen (TYLENOL) tablet Given 11/13/2019 5:15 PM CDT 650 mg 650 mg 650 mg, Oral, ONCE, 1 dose, Sat11/13/19 at 1815, MARIE NaCl 0.9% (NS) bolus infusion New Bag 11/13/2019 5:13 PM CDT 1,000 mL 999 mL/hr 1,000 mL at 999 mL/hr, 1,000 mL, IV Infusion, ONCE, 1 dose, Sat11/13/19 at 1715, MARIE documented in this encounter Additional Health Concerns Infection Onset Date Last Indicated Resolved Time COVID-19 Rule Out 11/13/2019 11/13/2019 11/13/2019 5: 52 PM CDT documented as of this encounter Insurance Payer Benefit Plan / Subscriber ID Effective Dates Phone Addre ss Type Group [facility] [id number] 2019-Present Medicaid COMM PLAN - MANAGED MEDICAID (Home) [address] [place], [place] [address] documented as of this encounter Advance Directives Name Relationship Healthcare Agent Relationship Co mmunication Berry Guerrero Significant Other Health Care Agent
--- OUTSIDE RECORDS SUMMARY | 2019-11-20 03:11 | XMS REPORT | Summary of Care ---
:2000 Author Organization [facility] Address [address] [place] [address] Care Team Providers Name Role Phone Maryam Bennett Primary Care Provider Reason for Visit Reason Comments Results Encounter Details Date Type Department Care Team Description 11/14/2019 Telephone ACCESS [facility]ENTER Natalie Myrick RN Results [address] [place] [address] Allergies No Known Allergiesdocumented as of this encounter (statuses as of 11/14/2019) Medications Medication Sig Dispensed Refills Start Date [...] as of this encounter (statuses as of 11/14/2019) Active Problems Problem Noted Date Laceration, obstetrical, [...] as of this encounter (statuses as of 11/14/2019) Resolved Problems Problem Noted Date Resolved Date Vaginal yeast infection 06/10/2019 09/01/2019 documented as of this encounter (statuses as of 11/14/2019) Immunizations Name Administration Dates Next Due HPV9 [...] this encounter Miscellaneous Notes Telephone Encounter - Natalie Myrick RN - 11/14/2019 9:06 PM CDT Estrogen Gene Test message sent to notify of negative result. Results COVID-19 (ID NOW RAPID TESTING) (Order [id number]) Patient Release Status: This result is viewable by the patient in Pinticshart. Last viewed in Pinticshart: 11/14/2019 3:58 AM By: Loida Oakes Result Information Flag: Normal Status: Final result (Collected: 11/13/2019 17:13) Provider Status: Open documented in this encounter Plan of Treatment Date Type Specialty Care Team Description 11/17/2019 Routine Visit OB Satellites Nikky Doyle, CNP [address], [place] [address] [phone] Health Maintenance Due Date Last Done Comments [...] Effective Dates Phone Addre ss Type Group [facility] [id number] 2019-Present Medicaid COMM PLAN - MANAGED MEDICAID documented as of this encounter Advance Directives Name Relationship Healthcare Agent Relationship Co mmunication Berry Guerrero Significant Other Health Care Agent
--- OUTSIDE RECORDS SUMMARY | 2019-11-20 03:11 | XMS REPORT | Summary of Care ---
:2000 Author Organization [facility] Address [address] [place] [address] Care Team Providers Name Role Phone Maryam Bennett Primary Care Provider Reason for Visit Reason Comments Fever Encounter Details Date Type Department Care Team Description 11/13/2019 Urgent Care [facility] Family Justo Lee FNP [facility] [id number] [place] [address] Hypotension, unspecified hypotension typ e (Primary Dx); [facility] Tachycardia; [address] [place] [address] Vaginal bl eeding; Drive Fatigue, unspecified type; [place], [place] Fever, unspecif ied fever cause [id number] Allergies No Known Allergiesdocumented as of this [...] Sign Reading Time Taken Comments Blood Pressure 80/50 11/13/2019 9:25 PM CDT Pulse 125 11/13/2019 9:25 PM CDT Temperature 37.7 C (99.8 F) 11/13/2019 4:35 PM CDT Respiratory Rate 18 11/13/2019 4:38 PM CDT Oxygen Saturation 98% 11/13/2019 9:25 PM CDT Inhaled Oxygen Concentration - - Weight 65.8 kg (145 lb) 11/13/2019 4:35 PM CDT Height 154.9 cm (5' 1") 11/13/2019 4:35 PM CDT Body Mass Index 27.4 11/13/2019 4:35 PM CDT documented in this encounter Progress Notes Virginia Guerrero PA - 11/13/2019 4:20 PM CDT Cc: Chief Complaint Patient presents with Fever Loida Oakes is a 19 year old female. Patient presents with fever that began yesterday. Travel: No. COVID19 exposure? No. Sick Contacts? No Patient is 2 weeks . Admits to daily vaginal bleeding. Pads: 6 per daily. Changing every 3-4 hours. Nsaid use: yes. Associated s/s: + fatigue. No hematuria, hematochezia, melena, hemoptysis, hematemesis No chest pain, palpitations, le edema No sob, wheezing, cough No dizziness, syncope, weakness No abdominal pain, n/v/d/c No pelvic pain, vaginal pain or vaginal discharge No dysuria, frequency, urgency, flank pain Fever Max temp prior to arrival: 101.4 Temp source: Oral Duration: 1 day Chronicity: New Worsened by: Nothing Ineffective treatments: Ibuprofen Associated symptoms: headaches (mild intermittent) Associated symptoms: no chest pain, no chills, no confusion, no congestion, no cough, no diarrhea, no dysuria, no ear pain, no myalgias, no nausea, no rash, no rhinorrhea, no somnolence, no sore throatand no vomiting Risk factors: no contaminated food, no contaminated water, no hx of cancer, no immunosuppression, nooccupational exposure, no recent sickness, no recent travel and no sick contacts Allergies Loida has No Known Allergies. Medications Outpatient Medications Prior to Visit Medication Sig Dispense Refill docusate calcium 240 mg capsule Take 1 capsule by mouth once daily as needed for Constipation. 60 capsule 1 ibuprofen 600 mg tablet Take 1 tablet by mouth every 6 (six) hours as needed (Pain). Take with food or milk. 60 tablet 1 Iron Fum & P-FA-Vit B & C No.9 (INTEGRA PLUS) 125 mg iron- 1 mg Cap Take 1 capsule by mouth daily. 30 capsule 2 No facility-administered medications prior to visit. Histories Past Medical History: Diagnosis Date Anemia of mother in , antepartum 08/04/2019 Vaginal yeast infection 06/10/2019 Past Surgical History: Procedure Laterality Date INSERT [...] file Gets together: Not on file Attends hindu service: Not on file Active member of [...] Concern Not on file Social History Narrative Evangelical preference is none. Patient lives with partner. Patient has 1 cat, partner does litter box. Family History Problem Relation Age of Onset [...] Grandmother No Significant Medical Problems Paternal Grandfather Review of Systems Constitutional: Positive for fatigue and fever. Negative for activity change, appetite change, chills and diaphoresis. HENT: Negative for congestion, ear discharge, ear pain, facial swelling, postnasal drip, rhinorrhea,sinus pressure, sore throat, trouble swallowing and voice change. Eyes: Negative for pain, discharge, redness and itching. Respiratory: Negative for cough, chest tightness, shortness of breath and wheezing. Cardiovascular: Negative for chest pain, palpitations and leg swelling. Gastrointestinal: Negative for abdominal distention, abdominal pain, anal bleeding, blood in stool, constipation, diarrhea, nausea and vomiting. Genitourinary: Positive for vaginal bleeding. Negative for bladder incontinence, dysuria, urgency, frequency, hematuria, flank pain, decreased urine volume, vaginal discharge, enuresis, difficulty urinating, genital sores, vaginal pain, pelvic pain, dyspareunia and nocturia. Musculoskeletal: Negative for arthralgias, back pain, gait problem, joint swelling, myalgias and neck stiffness. Skin: Negative for color change and rash. Neurological: Positive for headaches (mild intermittent). Negative for dizziness, seizures, syncope,weakness, light-headedness and numbness. Psychiatric/Behavioral: Negative for confusion. Vital Signs BP (!) 85/55 | Pulse 132 | Temp 37.7 C (99.8 F) (Oral) | Resp 18 | Ht 5' 1" (1.549 m) | Wt 145 lb (65.8 kg) | LMP 01/25/2019 (Exact Date) | SpO2 96% | BMI 27.40 kg/m Vitals: 11/13/19 1635 11/13/19 1638 11/13/19 2125 BP: (!) 87/58 (!) 85/55 (!) 80/50 Pulse: 132 125 Resp: 18 18 Temp: 37.7 C (99.8 F) TempSrc: Oral SpO2: 96% 96% 98% Weight: 145 lb (65.8 kg) Height: 5' 1" (1.549 m) Physical Exam Vitals signs and nursing note reviewed. Constitutional: General: She is not in acute distress. Appearance: She is well-developed. She is not ill-appearing, toxic-appearing or diaphoretic. HENT: Head: Normocephalic and atraumatic. Right Ear: Tympanic membrane, ear canal and external ear normal. Left Ear: Tympanic membrane, ear canal and external ear normal. Nose: Nose normal. Eyes: General: Right eye: No discharge. Left eye: No discharge. Conjunctiva/sclera: Conjunctivae normal. Neck: Musculoskeletal: Normal range of motion. Cardiovascular: Rate and Rhythm: Regular rhythm. Tachycardia present. Heart sounds: Normal heart sounds. Pulmonary: Effort: Pulmonary effort is normal. No respiratory distress. Breath sounds: Normal breath sounds. No stridor. No wheezing, rhonchi or rales. Abdominal: General: Bowel sounds are normal. There is no distension. Palpations: Abdomen is soft. Tenderness: There is no abdominal tenderness. There is no guarding or rebound. Musculoskeletal: Normal range of motion. General: No swelling or tenderness. Right lower leg: No edema. Left lower leg: No edema. Comments: No calf tenderness, swelling, warmth Skin: General: Skin is warm and dry. Findings: No rash. Neurological: Mental Status: She is alert and oriented to person, place, and time. Psychiatric: Behavior: Behavior normal. Assessment/Plan Hypotension, unspecified hypotension type (primary encounter diagnosis) Tachycardia Vaginal bleeding Fatigue, unspecified type Fever, unspecified fever cause Plan: COVID-19 (PCR MOLECULAR TESTING) Patient with low grade fever in clinic, 99.8. Has taken antipyretic therapy today. At home temp: 101.4. Well appearing, NAD. Patient is 2 weeks . Patient is hypotensive, BP 80-87/50-58, and tachycardic HR 125-132. Admits to fatigue. Denies chest pain, sob, palpitations, dizziness, syncope. Daily vaginal bleeding since vaginal delivery. No pelvic pain or vaginal discharge. Nontender abdominal exam. Recommend STAT ED evaluation. Eval for hemorrhage, endometritis given 2 weeks , symptoms, hypotension/tachycardia/fever. Sepsis eval given fever, hypotension, tachycardia. COVID-19 screen ordered. Recommend follow-up with PCP and global recruiter after hospital visit. Report called and given to Romie. Pt transported via wheelchair. PPE protocol performed. Plan of care, desired health behaviors, goals, Ddx, & any prescribed or OTC medications discussed with patient. Education resources & self management tools provided and reviewed with AVS. Patient/guardian/family verbalized understanding & agrees to plan of care. Barriers to care: NONE Ability to manage care: Good This visit did not involve counseling and coordination that comprised more than 50% of the visit time. documented in this encounter Plan of Treatment Date Type Specialty Care Team Description 11/17/2019 Routine Visit [facility] Nikky Doyle, CNP [address], [place] [address] [phone] Name Type Priority Associated Diagnoses Date/Ti me COVID-19 (PCR MOLECULAR LAB Routine Hypotension, unsp ecified 11/13/2019 4:35 PM CDT TESTING) hypotension type Fatigue, unspeci fied type Tachycardia Fever, unspecified fever cause Health Maintenance Due Date Last Done Comments [...] filedocumented in this encounter Visit Diagnoses Diagnosis Hypotension, unspecified hypotension typ e - Primary Tachycardia Tachycardia, unspecified Vaginal bleeding Other specified noninflammatory disorder of vagina Fatigue, unspecified type Fever, unspecified fever cause documented in this encounter Additional Health Concerns Infection Onset Date Last Indicated Resolved Time COVID-19 Rule Out 11/13/2019 11/13/2019 11/13/2019 5: 52 PM CDT documented as of this encounter Insurance Payer Benefit Plan / Subscriber ID Effective Dates Phone Addre ss Type Group [facility] ST[facility] [id number] 2019-Present Medicaid COMM PLAN - MANAGED MEDICAID (Home) [id number] [place], [place] [address] documented as of this encounter Advance Directives Name Relationship Healthcare Agent Relationship Co mmunication Berry Guerrero Significant Other Health Care Agent
[2019-11-20 03:43] LABS: Absolute Lymphocytes (CBC) 3.5 K/uL (0.7-4.9); Basophils % 0.9 % (0-1.3); Hematocrit 36.7 % (36.0-45.0); Lymphocytes % 39.1 % (15.3-44.8); MPV 7.3 fL (7.6-11.3); RBC Red Blood Cell Count 4.15 M/uL (3.86-4.86)
[2019-11-20] MEDS ORDERED: FAMOTIDINE 20 MG/2 ML VIAL IV ONE (03:45)
[2019-11-20] MEDS ORDERED: LIDOCAINE VISCOUS 2% SOLN 15 ML UDC ONE (03:45)
[2019-11-20] MEDS ORDERED: NA CHLORIDE 0.9% 1,000 ML ONE (03:45)
[2019-11-20] MEDS ORDERED: MAGNE/ALUM HYDROXD 30 ML UCUP ONE (03:45)
[2019-11-20] MEDS ORDERED: ONDANSETRON 4 MG/2 ML VIAL ONE (03:45)
[2019-11-20 03:55] LABS: ALT/SGPT 21 U/L (12-78); AST/SGOT 15 U/L (15-37); Albumin 3.7 g/dL (3.4-5.0); Alkaline Phosphatase 136 U/L (45-117); BUN Blood Urea Nitrogen 7 mg/dL (7-18); Bicarbonate 24 mmol/L (21-32); Bilirubin Direct < 0.1 mg/dL (0-0.2); Bilirubin Total 0.2 mg/dL (0.2-1.0); Glucose Level 113 mg/dL (74-106); Lipase 115 U/L (73-393); Potassium 3.8 mmol/L (3.5-5.1); Protein, Total 7.7 g/dL (6.4-8.2); Sodium Level 140 mmol/L (136-145)
[2019-11-20 04:03] LABS: Urine Blood 2+ (NEG); Urine Glucose NEGATIVE (NEG); Urine Protein NEGATIVE (NEG); Urine pH 6.5 (5.0-7.0)
--- NOTE | 2019-11-20 04:41 | ER ---
Nurse's Notes [facility] Name: Loida Oakes Age: 19 yrs Sex: Female : 2000 Arrival Date: 11/20/2019 Time: 03:07 Bed 6 Private MD: Diagnosis: Abdominal Pain;UTI Presentation: 11/19 03:21 Chief complaint: Patient states: Reports about an hour ago she was breast feeding her ea baby and she started having cramping in epigastric area and nausea. Pt reports she gave 3 weeks ago and was diagnosed with UTI and has been on antibiotics. Coronavirus screen: At this time, the client does not indicate any symptoms associated with coronavirus-19. Ebola Screen: No symptoms or risks identified at this time. Initial Sepsis Screen: Does the patient meet any 2 criteria? No. Patient's initial sepsis screen is negative. Does the patient have a suspected source of infection?. Risk Assessment: Do you want to hurt yourself or someone else? Patient reports no desire to harm self or others. Onset of symptoms was November 20, 2019. 03:21 Method Of Arrival: Ambulatory ea 03:21 Acuity: CURTIS 3 ea Triage Assessment: 03:27 General: Appears in no apparent distress. Behavior is calm, cooperative, appropriate ea for age. Pain: Complains of pain in epigastric area. Neuro: Level of Consciousness is awake, alert, obeys commands, Oriented to person, place, time. Respiratory: Airway is patent Respiratory effort is even, unlabored, Respiratory pattern is regular, symmetrical. GI: Abdomen is non-distended. Derm: Skin is pink, warm \T\ dry. Historical: - Allergies: 03:30 No Known Allergies; ea - Home Meds: 03:30 None [Active]; ea - PMHx: 03:30 None; ea - PSHx: 03:30 None; ea - Immunization history:: Adult Immunizations up to date. - Social history:: Smoking status: Patient denies any tobacco usage or history of. Screenin:25 Abuse screen: Denies threats or abuse. Nutritional screening: No deficits noted. ea Tuberculosis screening: No symptoms or risk factors identified. Fall Risk None identified. Assessment: 03:27 Reassessment: See triage assessment. ea 04:49 Reassessment: Patient and/or family updated on plan of care and expected duration. Pain ea level reassessed. Patient is alert, oriented x 3, equal unlabored respirations, skin warm/dry/pink. Discharge instruction given to patient, verbalized the understanding of instruction. Pt left ED ambulatory tolerating well. Vital Signs: 03:21 BP 103 / 67; Pulse 73; Resp 18; Temp 98.4; Pulse Ox 99% ; Weight 55.34 kg; Height 5 ft. ea 1 in. (154.94 cm); Pain 4/10; 04:30 BP 111 / 73; Pulse 70; Resp 18; Pulse Ox 98% ; ea 03:21 Body Mass Index 23.05 (55.34 kg, 154.94 cm) ea ED Course: 03:07 Patient arrived in ED. ag3 03:17 Landry Mclaughlin MD is Attending Physician. mh7 03:21 Klaudia Orosco, APOLINAR is Primary Nurse. ea 03:25 Triage completed. ea 03:27 Patient has correct armband on for positive identification. Bed in low position. Call ea light in reach. 03:27 Arm band placed on right wrist. Patient placed in an exam room, on a stretcher, on ea pulse oximetry. 03:30 Inserted saline lock: 20 gauge in right forearm, using aseptic technique. Blood rv collected. 03:30 Initial lab(s) drawn, by me, sent to lab. rv 04:50 No provider procedures requiring assistance completed. IV discontinued, intact, ea bleeding controlled, No redness/swelling at site. Pressure dressing applied. Administered Medications: 03:26 CANCELLED (Duplicate Order): Zofran (Ondansetron) 4 mg IVP once; over 2 minutes ea 03:30 Drug: NS 0.9% 1000 ml Route: IV; Rate: 1000 ml; Site: right forearm; rv 04:30 Follow up: Response: No adverse reaction; IV Status: Completed infusion; IV Intake: ea 1000ml 03:30 Drug: Zofran (Ondansetron) 4 mg Route: IVP; Site: right forearm; rv 04:30 Follow up: Response: No adverse reaction ea 03:38 Drug: Pepcid 20 mg Route: IVP; Site: right forearm; rv 04:30 Follow up: Response: No adverse reaction ea 03:38 Drug: GI Cocktail without - (Maalox Suspension 30 ml, Lidocaine Liquid 2 % 15 rv ml) Route: PO; 04:30 Follow up: Response: No adverse reaction ea Intake: 04:30 IV: 1000ml; Total: 1000ml. ea Outcome: 04:40 Discharge ordered by . florence 04:50 Discharged to home ambulatory. ea 04:50 Condition: stable 04:50 Discharge instructions given to patient, Instructed on discharge instructions, follow up and referral plans. medication usage, Demonstrated understanding of instructions, follow-up care, medications, Prescriptions given X 2. 04:51 Patient left the ED. ea Signatures: Klaudia Orosco, RN RN Stan Campbell, RN Mar Raya Maurice, MD MD mh7
--- NOTE | 2019-11-20 04:41 | EDPHYS ---
Physician Documentation [facility] Name: Loida Oakes Age: 19 yrs Sex: Female : 2000 Arrival Date: 11/20/2019 Time: 03:07 Bed 6 Private MD: MERVIN Physician Landry Mclaughlin HPI: 11/19 03:28 This 19 yrs old Female presents to ER via Ambulatory with complaints of mh7 Abdominal Pain. 03:28 The patient presents with abdominal pain in the epigastric area. Onset: The mh7 symptoms/episode began/occurred today. The symptoms do not radiate. Associated signs and symptoms: Pertinent positives: nausea, Pertinent negatives: anorexia, blood in stools, chest pain, constipation, diarrhea, dysuria, fever, headache, hematuria, palpitations, shortness of breath, vaginal discharge, vomiting, vomiting blood. The symptoms are described as burning, intermittent, waxing/waning. Modifying factors: The symptoms are alleviated by nothing, the symptoms are aggravated by food. Severity of pain: At its worst the pain was moderate today, in the emergency department the pain has improved moderately. Patient states that she started to have upper abdominal pain while breast feeding today. She has some nausea. She denies any vomiting, fever, diarrhea, chest pain, SOB, or dysuria.. Historical: - Allergies: 03:30 No Known Allergies; ea - Home Meds: 03:30 None [Active]; ea - PMHx: 03:30 None; ea - PSHx: 03:30 None; ea - Immunization history:: Adult Immunizations up to date. - Social history:: Smoking status: Patient denies any tobacco usage or history of. ROS: 03:28 Constitutional: Negative for fever, chills, and weight loss, Eyes: Negative for injury, mh7 pain, redness, and discharge, ENT: Negative for injury, pain, and discharge, Neck: Negative for injury, pain, and swelling, Cardiovascular: Negative for chest pain, palpitations, and edema, Respiratory: Negative for shortness of breath, cough, wheezing, and pleuritic chest pain, Back: Negative for injury and pain, : Negative for injury, bleeding, discharge, and swelling, MS/Extremity: Negative for injury and deformity, Skin: Negative for injury, rash, and discoloration, Neuro: Negative for headache, weakness, numbness, tingling, and seizure, Psych: Negative for depression, anxiety, suicide ideation, homicidal ideation, and hallucinations, Allergy/Immunology: Negative for hives, rash, and allergies, Endocrine: Negative for neck swelling, polydipsia, polyuria, polyphagia, and marked weight changes, Hematologic/Lymphatic: Negative for swollen nodes, abnormal bleeding, and unusual bruising. Exam: 03:28 Constitutional: This is a well developed, well nourished patient who is awake, alert, mh7 and in no acute distress. Head/Face: Normocephalic, atraumatic. Eyes: Pupils equal round and reactive to light, extra-ocular motions intact. Lids and lashes normal. Conjunctiva and sclera are non-icteric and not injected. Cornea within normal limits. Periorbital areas with no swelling, redness, or edema. Neck: Trachea midline, no thyromegaly or masses palpated, and no cervical lymphadenopathy. Supple, full range of motion without nuchal rigidity, or vertebral point tenderness. No Meningismus. Chest/axilla: Normal chest wall appearance and motion. Nontender with no deformity. No lesions are appreciated. Cardiovascular: Regular rate and rhythm with a normal S1 and S2. No gallops, murmurs, or rubs. Normal PMI, no JVD. No pulse deficits. Respiratory: Lungs have equal breath sounds bilaterally, clear to auscultation and percussion. No rales, rhonchi or wheezes noted. No increased work of breathing, no retractions or nasal flaring. 03:28 Back: No spinal tenderness. No costovertebral tenderness. Full range of motion. Skin: Warm, dry with normal turgor. Normal color with no rashes, no lesions, and no evidence of cellulitis. MS/ Extremity: Pulses equal, no cyanosis. Neurovascular intact. Full, normal range of motion. Neuro: Awake and alert, GCS 15, oriented to person, place, time, and situation. Cranial nerves II-XII grossly intact. Motor strength 5/5 in all extremities. Sensory grossly intact. Cerebellar exam normal. Normal gait. Psych: Awake, alert, with orientation to person, place and time. Behavior, mood, and affect are within normal limits. 03:28 Abdomen/GI: Inspection: abdomen appears normal, Bowel sounds: normal, in all quadrants, Palpation: mild abdominal tenderness, in the epigastric area, Rectal exam: the exam is deferred, because of patient request, Indicators: McBurney's point is not tender, Estevez's sign is negative, Rovsing's sign is negative, Obturator sign is negative, Psoas sign is negative, Liver: no appreciated palpable abnormalities, Hernia: not appreciated. Vital Signs: 03:21 BP 103 / 67; Pulse 73; Resp 18; Temp 98.4; Pulse Ox 99% ; Weight 55.34 kg; Height 5 ft. ea 1 in. (154.94 cm); Pain 4/10; 04:30 BP 111 / 73; Pulse 70; Resp 18; Pulse Ox 98% ; ea 03:21 Body Mass Index 23.05 (55.34 kg, 154.94 cm) ea MDM: 03:25 Patient medically screened. mh7 04:38 Differential diagnosis: gastritis, gastroesophageal reflux disease, non-specific abd mh7 pain, pancreatitis, Peptic Ulcer Disease, urinary tract infection. Data reviewed: vital signs, nurses notes, old medical records, lab test result(s). Data interpreted: Pulse oximetry: on room air is 99 %. Interpretation: normal. Counseling: I had a detailed discussion with the patient and/or guardian regarding: the historical points, exam findings, and any diagnostic results supporting the discharge/admit diagnosis, lab results, the need for outpatient follow up, to return to the emergency department if symptoms worsen or persist or if there are any questions or concerns that arise at home. Response to treatment: the patient's symptoms have resolved after treatment, the patient's blood pressure is in an acceptable range, mental status has returned to baseline, the patient no longer shows bradycardia, the patient is not short of breath, the patient is not tachycardic, the patient's pain is gone, the patient's temperature has normalized, the patient's condition has returned to base line, the patient is now symptom free, patient is well hydrated. Refusal of service: The patient/guardian displays adequate decision making capability and despite a detailed discussion of alternatives, benefits, risks, and consequences refuses: CT Scan. 11/19 03:23 Order name: Urine --Ancillary (enter results); Complete Time: 04:22 tt3 11/19 03:23 Order name: Urine Dipstick--Ancillary (enter results); Complete Time: 04:22 tt3 11/19 03:25 Order name: Basic Metabolic Panel; Complete Time: 04:22 ea 11/19 03:25 Order name: CBC with Diff; Complete Time: 04:22 11/19 03:25 Order name: Hepatic Function; Complete Time: 04:22 11/19 03:25 Order name: Lipase; Complete Time: 04:22 11/19 04:42 Order name: Urine Culture [facility] 11/19 03:26 Order name: IV Saline Lock; Complete Time: 03:38 [facility] 11/19 03:26 Order name: Labs collected and sent; Complete Time: 03:38 Administered Medications: 03:26 CANCELLED (Duplicate Order): Zofran (Ondansetron) 4 mg IVP once; over 2 minutes ea 03:30 Drug: NS 0.9% 1000 ml Route: IV; Rate: 1000 ml; Site: right forearm; rv 04:30 Follow up: Response: No adverse reaction; IV Status: Completed infusion; IV Intake: ea 1000ml 03:30 Drug: Zofran (Ondansetron) 4 mg Route: IVP; Site: right forearm; rv 04:30 Follow up: Response: No adverse reaction ea 03:38 Drug: Pepcid 20 mg Route: IVP; Site: right forearm; rv 04:30 Follow up: Response: No adverse reaction ea 03:38 Drug: GI Cocktail without - (Maalox Suspension 30 ml, Lidocaine Liquid 2 % 15 rv ml) Route: PO; 04:30 Follow up: Response: No adverse reaction Disposition: 11/20/19 04:40 Discharged to Home. Impression: Abdominal Pain, UTI. - Condition is Stable. - Discharge Instructions: Urinary Tract Infection, Adult, [id number], Abdominal Pain, Adult, [id number]. - Prescriptions for Pepcid 20 mg Oral Tablet - take 1 tablet by ORAL route every 12 hours for 5 days; 10 tablet. Macrobid 100 mg Oral Capsule - take 1 capsule by ORAL route every 12 hours for 7 days; 14 capsule. - Medication Reconciliation Form, Thank You Letter, Antibiotic Education, Prescription Opioid Use form. - Follow up: Private Physician; When: 2 - 3 days; Reason: Worsening of condition, Recheck today's complaints, Continuance of care, Re-evaluation by your physician. - Problem is new. - Symptoms have improved. Signatures: Dispatcher [employer] Klaudia Ramos RN RN ea Vicente, Ronaldo, RN RN rv Holmes, Maurice, MD MD mh7 Corrections: (The following items were deleted from the chart) 03:26 03:26 Zofran (Ondansetron) 4 mg IVP once; over 2 minutes ordered. [facility] :32 03:25 IV Saline Lock ordered. [facility] :32 03:25 Labs collected and sent ordered. [facility] 04:51 04:40 11/20/2019 04:40 Discharged to Home. Impression: Abdominal Pain; UTI. Condition ea is Stable. Forms are Medication Reconciliation Form, Thank You Letter, Antibiotic Education, Prescription Opioid Use. Follow up: Private Physician; When: 2 - 3 days; Reason: Worsening of condition, Recheck today's complaints, Continuance of care, Re-evaluation by your physician. Problem is new. Symptoms have improved. mh7
[2019-11-20 06:15] VITALS: BP 111/73; TEMP 98.4; O2SAT 98
== END 2019-11-20 04:51 | disposition home or self-care (01) ==
LOC: ER 03:06
DX: N39.0 Urinary tract infection, site not specified (principal)
CPT/HCPCS: 96361; 87088; 85025; 87086; 80048; 36415; 81025; 80076; 81003; 83690; 96375; 96374; 99284; J7030; J2405

== ENCOUNTER 2019-12-09 23:43 | Emergency (ER) | payer OTHER ==
--- OUTSIDE RECORDS SUMMARY | 2019-12-09 23:45 | XMS REPORT | Continuity of Care Document ---
:2000 Author Organization [facility] t Address [address] [place] [address] Care Team Providers Name Role Phone Kristal Parmar Attending Clinician [phone] Problems This patient has no known problems. Allergies, Adverse Reactions, Alerts This patient has no known allergies or adverse reactions. Medications This patient has no known medications. Procedures This patient has no known procedures. Encounters Start End Encounter Admission Attending Care Care Encounter Source Date/Time Date/Time Type Type Clinicians Facility Department ID 2019-12-08 2019-12-08 Office ELLA Doyle [id number] 13:13:59 14:00:48 Visit Kristal Pineda ENTRY LEVEL MARKETING ASSISTANT [id number] [facility] [id number] MATERNAL [id number] & CHILD [address] [place] [address] Results This patient has no known results.
--- OUTSIDE RECORDS SUMMARY | 2019-12-09 23:48 | XMS REPORT | Summary of Care ---
:1999 Author Organization [facility] Address [address] [place] [address] Care Team Providers Name Role Phone Maryam [...] in third trimester ST Procedures DISCHARGE FOLLOW-UP: [facility] [place] [address] Encounter Details Date Type Department Care Team Description 11/17/2019 Routine [facility]- [place], Postp artum care and Visit ANNA Sheppard examination of [address] lactat ing [facility] (Primary Dx) [place], [place] [address] [place], [place] [phone] Allergies No Known Allergiesdocumented as of this encounter (statuses as of 11/24/2019) Medications Medication Sig Dispensed Refills Start Date End Date Status docusate calcium 240 Take 1 capsule 60 capsule 1 10/29/2019 Active mg by mouth once capsuleIndications: daily as needed Rubella non-immune for status, antepartum, Constipation. Susceptible to varicella (non-immune), currently , Anemia [...] Take 1 capsule 21 capsule 0 11/13/201901/2020 500 mg by mouth 3 capsuleIndications: (three) times Fever, unspecified daily for 7 fever cause days. documented as of this encounter (statuses as of 11/24/2019) Active Problems Problem Noted Date care and examination of lactating mother Laceration, obstetrical, minor 10/28/2019 Anemia of mother in , antepartum 08/04/2019 Rubella non-immune status, antepartum 03/20/2019 Susceptible to varicella (non-immune), currently pregn ant 03/20/2019 documented as of this encounter (statuses as of 11/24/2019) Resolved Problems Problem Noted Date Resolved Date [...] as of this encounter (statuses as of 11/24/2019) Immunizations Name Administration Dates Next Due HPV9 [...] file Gets together: Not on file Attends yarsanism service: Not on file Active member of [...] Concern Not on file Social History Narrative Mormonism preference is none. Patient lives with partner. [...] visit time. ANNA Kaminski 11/17/2019 11:47 AM Natsaha Hernandez - 11/17/2019 11:00 AM CDTPt in clinic today for 3 wk pp visit. 1) Delivery method Vaginal. 2) Patient delivered on 10/27/2019. at [facility] 3) Patient is currently . 4) Desired BCM: depo. 5) Patient denies pp depression. Natasha Hernandez 11/17/2019 11:31 AM documented in this encounter Plan of Treatment Date Type Specialty Care Team Description 12/08/2019 Office Visit OB Satellites Bryant Doyle WHCNP [address], [place] [address] [phone] Health Maintenance Due Date Last Done Comments [...] Type Group [facility] STAR [id number] 2019-Present Medicaid COMM PLAN - MANAGED MEDICAID [id number] 1 documented as of this encounter Advance Directives Name Relationship Healthcare Agent Relationship Co mmunication Berry Guerrero Significant Other Health Care Agent
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
--- OUTSIDE RECORDS SUMMARY | 2019-12-09 23:48 | XMS REPORT | Summary of Care ---
:1999 Author Organization [facility] Address [address] [place] [address] Care Team Providers Name Role Phone Maryam Bennett Primary Care Provider Reason for Visit Reason Comments Care (Routine) Status Reason Specialty Diagnoses / Referred By Referred To Procedures Contact Contact New Request OB Satellites Diagnoses Rubella non-immune status, antepartum Susceptible to varicella (non-immune), currently Anemia of mother in , antepartum Group B streptococcal carriage complicating 39 weeks gestation of oDri Fontana FNP Indication for c are or intervention in labor or delivery (spontaneous vaginal delivery) Single liveborn infant delivered vaginally Laceration, obstetrical, first degree BMI 21.0-21.9, adult [address] Supervision of high risk pre gnancy in third trimester ST Procedures DISCHARGE FOLLOW-UP: [facility] [place] [address] Encounter Details Date Type Department Care Team Description 11/17/2019 Routine [facility]- [place], Postp artum care and Visit ANNA Sheppard examination of [address] lact[address] [facility] (Primary Dx) [place], [place] [address] [address] [place], [place] [phone] [address] Allergies No Known Allergiesdocumented as of [...] file Gets together: Not on file Attends jehovah's witness service: Not on file Active member of [...] Concern Not on file Social History Narrative Spiritism preference is none. Patient lives with partner. [...] Vaginal. 2) Patient delivered on 10/27/2019. at [place] 3) Patient is currently . 4) Desired BCM: depo. 5) Patient denies pp depression. Natasha Hernandez 11/17/2019 11:31 AM documented in this encounter Plan of Treatment Date Type Specialty Care Team Description 12/08/2019 Office Visit OB Satellites Bryant Doyle WHCNP [address], [place] [address] [phone] Health Maintenance Due Date Last Done Comments [...] Effective Dates Phone Addre ss Type Group [facility] STAR [id number] 2019-Present Medicaid COMM PLAN - MANAGED MEDICAID [id number] 1 documented as of this encounter Advance Directives Name Relationship Healthcare Agent Relationship Co mmunication Berry Guerrero Significant Other Health Care Agent
--- OUTSIDE RECORDS SUMMARY | 2019-12-09 23:49 | XMS REPORT | Summary of Care ---
:[address] [facility] Address [address] [place] [address] Care Team Providers Name Role Phone Maryam Bennett Primary Care Provider Reason for Visit Reason Comments Well Woman Exam Encounter Details Date Type Department Care Team Description 12/08/[address] [facility]P- Kristal Doyle for initial prescription of injectable contraceptive (Primary Dx); Aidan Pineda LORENZO Other general counseling and advice for contraceptive management; [address] [facility] [address] Well woman exam; [facility] A Need for influenza vaccination; [place] [phone] Need for HPV vaccination [id number] Allergies No Known Allergiesdocumented as of this [...] file Gets together: Not on file Attends restorationism service: Not on file Active member of [...] Concern Not on file Social History Narrative Rastafari preference is none. Patient lives with partner. [...] 3) LMP: None since delivery 4) Last [place]: 10/24/2019 5) Last Pap: never Results: N/a [...] on patient's age to complete this to [facility] PNEUMOCOCCAL 0-64 YEARS Aged Out No longe r eligible based COMBINED SERIES on patient's age to complete this to [facility] WELL CARE VISIT: 12-21 YEARS Discontinued (yearly) documented as of this encounter Procedures Procedure Name Priority Date/Time Associated Diagnosis Comme nts FLU VACC Routine 12/08/2019 1:39 Need for influenza ([id number]), 6+ PM CDT vaccination MONTHS, IM, QUAD [...] Effective Dates Phone Addre ss Type Group [facility] STAR [id number] 2019-Present Medicaid COMM PLAN - MANAGED MEDICAID (Home) Appt [address] [place], [place] [address] documented as of this encounter Advance Directives Name Relationship Healthcare Agent Relationship Co mmunication Berry Guerrero Significant Other Health Care Agent
[2019-12-10] MEDS ORDERED: ACETAMINOPHEN 325 MG TABLET ONE (00:11)
[2019-12-10] MEDS ORDERED: IBUPROFEN 400 MG TAB ONE (00:26)
[2019-12-10] MEDS ORDERED: NA CHLORIDE 0.9% 2,000 ML ONE (00:26)
[2019-12-10 00:36] LABS: Absolute Lymphocytes (CBC) 0.9 K/uL (0.7-4.9); Basophils % 0.3 % (0-1.3); Hematocrit 38.7 % (36.0-45.0); Lymphocytes % 6.9 % (15.3-44.8); MPV 7.3 fL (7.6-11.3); RBC Red Blood Cell Count 4.35 M/uL (3.86-4.86)
[2019-12-10 00:42] LABS: BUN Blood Urea Nitrogen 10 mg/dL (7-18); Bicarbonate 22 mmol/L (21-32); Glucose Level 123 mg/dL (74-106); Potassium 3.5 mmol/L (3.5-5.1); Sodium Level 137 mmol/L (136-145)
[2019-12-10 01:12] LABS: Blood Morphology Comment NOT SEEN (NOT SEEN); Platelet Estimate ADEQ
[2019-12-10 01:16] LABS: Urine Bacteria <20 /HPF (<20); Urine Culture Reflex Order REFLEXED; Urine RBC NONE SEEN /HPF (NONE SEEN)
[2019-12-10] MEDS ORDERED: CEFTRIAXONE/SWI 1gm 1 GM/10 ML SYR ONE (01:42)
--- NOTE | 2019-12-10 02:03 | EDPHYS ---
Physician Documentation [facility] Name: Loida Oakes Age: 19 yrs Sex: Female : 2000 Arrival Date: 12/09/2019 Time: 23:45 Bed 5 Private MD: ED Physician Rafiq Isidro HPI: 12/09 00:15 This 19 yrs old Female presents to ER via Ambulatory with complaints of Fever, cp Sore Throat, Body Pain, Headache. 00:15 The patient reports fever, with an emergency department temperature of 101.3 degrees cp Fahrenheit. Onset: The symptoms/episode began/occurred this morning. Associated signs and symptoms: Pertinent positives: headache, sore throat, body aches, Pertinent negatives: abdominal pain, cough, diarrhea, vomiting. 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 - Social history:: Smoking status: Patient denies any tobacco usage or history of. ROS: 12/09 00:20 Constitutional: Positive for body aches, fever, Negative for poor PO intake. cp 00:20 Eyes: Negative for injury, pain, redness, and discharge. cp Exam: 00:25 Constitutional: The patient appears in no acute distress, alert, awake, non-toxic, well cp developed, well nourished, febrile. 00:25 Head/Face: Normocephalic, atraumatic. cp 00:25 Eyes: Periorbital structures: appear normal, Conjunctiva: normal, no exudate, no injection, Lids and lashes: appear normal, bilaterally. 00:25 ENT: External ear(s): are unremarkable, Nose: is normal, Mouth: Lips: moist, Oral mucosa: moist, Posterior pharynx: Airway: no evidence of obstruction, patent, Tonsils: with erythema, no enlargement, no exudate, erythema, that is mild, exudate, is not appreciated. 00:25 Neck: ROM/movement: limited range of motion, is not appreciated, Meningeal signs: are not present, nuchal rigidity, is not appreciated. 00:25 Chest/axilla: Inspection: normal, Palpation: is normal, no crepitus, no tenderness. 00:25 Cardiovascular: Rate: tachycardic, Rhythm: regular. 00:25 Respiratory: the patient does not display signs of respiratory distress, Respirations: normal, no use of accessory muscles, no retractions, labored breathing, is not present, Breath sounds: are clear throughout, no decreased breath sounds, no stridor, no wheezing. 00:25 Abdomen/GI: Inspection: abdomen appears normal, Palpation: abdomen is soft and non-tender, in all quadrants. 00:25 Skin: cellulitis, is not appreciated, no rash present. 00:25 Neuro: Orientation: to person, place \T\ time. Mentation: is normal, Motor: moves all fours, strength is normal, Gait: is steady. Vital Signs: 12/08 23:54 BP 103 / 75; Pulse 130; Resp 18; Temp 101.3; Pulse Ox 98% on R/A; Weight 54.43 kg; mg2 Height 5 ft. 1 in. (154.94 cm); Pain 6/10; 12/09 01:14 BP 100 / 60; Pulse 104; Resp 18; Temp 99.7(O); Pulse Ox 100% on R/A; mg2 12/08 23:54 Body Mass Index 22.67 (54.43 kg, 154.94 cm) mg2 MDM: 12/08 23:52 Patient medically screened. cp 12/09 00:30 Differential diagnosis: viral Infection, bacterial infection, URI, UTI, meningitis, cp COVID-19, strep throat. 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 Counseling: I had a detailed discussion with the patient and/or guardian regarding: the historical points, exam findings, and any diagnostic results supporting the discharge/admit diagnosis, lab results, the need for outpatient follow up, to return to the emergency department if symptoms worsen or persist or if there are any questions or concerns that arise at home. Special discussion: I discussed with the patient/guardian in detail that at this point there is no indication for admission to the hospital. It is understood, however, that if the symptoms persist or worsen the patient needs to return immediately for re-evaluation. 12/09 00:06 Order name: Strep; Complete Time: 01:20 cp 12/09 00:06 Order name: [place] Screen Profile; Complete Time: 01:00 cp 12/09 00:06 Order name: CBC with Diff; Complete Time: 01:14 cp 12/09 01:00 Interpretation: Normal except: WBC 13.2; RDW 11.7; MPV 7.3; CA% 89.0; LYM% 6.9; NEUT A cp 11.8. 12/09 00:06 Order name: BMP; Complete Time: 01:00 cp 12/09 01:01 Interpretation: Normal except: GLUC 123; CA 8.3. cp 12/09 00:06 Order name: Influenza Screen (a \T\ B); Complete Time: 01:20 cp 12/09 00:06 Order name: Blood Culture Adult (2) cp 12/09 00:06 Order name: Lactate; Complete Time: 01:00 cp 12/09 00:06 Order name: Procalcitonin; Complete Time: 01:14 cp 12/09 00:06 Order name: Urine Microscopic Only; Complete Time: 01:20 cp 12/09 01:20 Interpretation: Normal except: UWBC 5-10. cp 12/09 00:37 Order name: Urine --Ancillary (enter results) tt3 12/09 00:37 Order name: Urine Dipstick--Ancillary (enter results) tt3 12/09 00:39 Order name: Manual Differential; Complete Time: 01:14 EDMS 12/09 01:14 Interpretation: Normal except: SEGS 87; BANDS [F] 5; LYM 6. cp 12/09 00:54 Order name: SARS-COV-2 RT PCR EDMS 12/09 00:06 Order name: Urine Dipstick-Ancillary (obtain specimen); Complete Time: 00:35 cp 12/09 00:06 Order name: Urine Test (obtain specimen); Complete Time: 00:35 cp 12/09 01:17 Order name: Urine Culture EDMS 12/09 01:20 Order name: Throat Culture EDMS Administered Medications: 00:17 Drug: Ibuprofen 800 mg Route: PO; mg2 01:25 Follow up: Response: No adverse reaction; Marked relief of symptoms; Temperature is mg2 decreased; Pain is decreased 00:17 Drug: NS 0.9% (30 ml/kg) 30 ml/kg Route: IV; Rate: bolus; Site: right antecubital; mg2 01:35 Follow up: Response: No adverse reaction; IV Status: Completed infusion; IV Intake: mg2 1600ml 00:35 Not Given (Physician Discretion): NS 0.9% 1000 ml IV at 1 bolus Per protocol; 1000 mL mg2 bolus 01:32 Drug: Rocephin - (cefTRIAXone) 1 grams Route: IVPB; Infused Over: 30 mins; Site: right mg2 antecubital; 02:02 Follow up: Response: No adverse reaction; IV Status: Completed infusion mg2 Disposition: 02:45 Co-signature as Attending Physician, Rafiq Isidro MD. rn Disposition: 12/10/19 02:02 Discharged to Home. Impression: Urinary tract infection, site not specified, Acute pharyngitis, Fever, unspecified. - Condition is Stable. - Discharge Instructions: Fever, Adult, Pharyngitis, Sore Throat, Urinary Tract Infection, Adult, COVID-19. - Prescriptions for Augmentin 875- 125 mg Oral Tablet - take 1 tablet by ORAL route every 12 hours for 10 days; 20 tablet. Ibuprofen 800 mg Oral Tablet - take 1 tablet by ORAL route every 8 hours As needed take with food; 30 tablet. - Medication Reconciliation Form, Thank You Letter, Antibiotic Education, Prescription Opioid Use form. - Follow up: Private Physician; When: 1 - 2 days; Reason: Worsening of condition. - Problem is new. - Symptoms have improved. Signatures: Dispatcher [employer] Jose Armando Teixeira RN RN Rafiq Isidro MD MD rn Page, Corey, PA PA cp Gardose, Michele, RN RN mg2 Corrections: (The following items were deleted from the chart) 00:54 00:07 CORONAVIRUS+MR.LAB.BRZ ordered. EDMS EDMS 01:01 01:00 Normal except: GLUC 123. cp cp 02:10 02:02 12/10/2019 02:02 Discharged to Home. Impression: Urinary tract infection, site mg2 not specified; Acute pharyngitis; Fever, unspecified. Condition is Stable. Discharge Instructions: Fever, Adult, Pharyngitis, Sore Throat, Urinary Tract Infection, Adult, COVID-19. Prescriptions for Augmentin 875-125 mg Oral Tablet - take 1 tablet by ORAL route every 12 hours for 10 days; 20 tablet, Ibuprofen 800 mg Oral Tablet - take 1 tablet by ORAL route every 8 hours As needed take with food; 30 tablet. and Forms are Medication Reconciliation Form, Thank You Letter, Antibiotic Education, Prescription Opioid Use. Follow up: Private Physician; When: 1 - 2 days; Reason: Worsening of condition. Problem is new. Symptoms have improved. rn
--- NOTE | 2019-12-10 02:03 | ER ---
Nurse's Notes [facility] Name: Loida Oakes Age: 19 yrs Sex: Female : 2000 Arrival Date: 12/09/2019 Time: 23:45 Bed 5 Private MD: Diagnosis: Urinary tract infection, site not specified;Acute pharyngitis;Fever, unspecified Presentation: 12/08 23:49 Chief complaint: Patient states: This morning reported fever 101, with sore throat and sg body aches, and a headache as well. pt denies n/v/d at this time. Coronavirus screen: Client denies travel out of the [place] in the last 14 days. fever, headache, sore throat, Client presents with at least one sign or symptom that may indicate coronavirus-19. Standard/surgical mask placed on the client. Provider contacted for isolation considerations. Ebola Screen: Patient negative for fever greater than or equal to 101.5 degrees Fahrenheit, and additional compatible Ebola Virus Disease symptoms Patient denies exposure to infectious person. Patient denies travel to an Ebola-affected area in the 21 days before illness onset. No symptoms or risks identified at this time. Initial Sepsis Screen: Does the patient meet any 2 criteria? No. Patient's initial sepsis screen is negative. Does the patient have a suspected source of infection? No. Patient's initial sepsis screen is negative. Onset of symptoms was December 09, 2019. Care prior to arrival: None. Transition of care: patient was not received from another setting of care. 23:49 Method Of Arrival: Ambulatory sg 23:49 Acuity: CURTIS 3 sg 23:55 Risk Assessment: Do you want to hurt yourself or someone else? Patient reports no mg2 desire to harm self or others. 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 - Social history:: Smoking status: Patient denies any tobacco usage or history of. Screenin:54 Abuse screen: Denies threats or abuse. Denies injuries from another. Nutritional mg2 screening: No deficits noted. Tuberculosis screening: No symptoms or risk factors identified. Fall Risk None identified. Assessment: 23:54 General: Appears in no apparent distress. comfortable, Behavior is calm, cooperative. mg2 Pain: Complains of pain in whole body, throat. Neuro: Level of Consciousness is awake, alert, obeys commands, Oriented to person, place, time, situation. Neuro: Reports headache. Cardiovascular: Capillary refill < 3 seconds Patient's skin is warm and dry. Respiratory: Airway is patent Respiratory effort is even, unlabored, Respiratory pattern is regular, symmetrical. GI: No signs and/or symptoms were reported involving the gastrointestinal system. : No signs and/or symptoms were reported regarding the genitourinary system. EENT: Reports sore throat. Derm: Skin is intact, is healthy with good turgor, Skin is pink, warm \T\ dry. normal. Musculoskeletal: Circulation, motion, and sensation intact. Capillary refill < 3 seconds. 12/09 00:03 Reassessment: code sepsis called. mg2 00:04 Reassessment: a code sepsis has been activated by ED staff. sg 00:35 EENT: Throat is reddened. mg2 01:16 Reassessment: Patient appears in no apparent distress at this time. Patient and/or mg2 family updated on plan of care and expected duration. Pain level reassessed. Patient is alert, oriented x 3, equal unlabored respirations, skin warm/dry/pink. Patient states feeling better. Respiratory: Breath sounds are clear. 02:02 Reassessment: Patient appears in no apparent distress at this time. Patient states mg2 feeling better. Patient states symptoms have improved. Vital Signs: 12/08 23:54 BP 103 / 75; Pulse 130; Resp 18; Temp 101.3; Pulse Ox 98% on R/A; Weight 54.43 kg; mg2 Height 5 ft. 1 in. (154.94 cm); Pain 6/10; 12/09 01:14 BP 100 / 60; Pulse 104; Resp 18; Temp 99.7(O); Pulse Ox 100% on R/A; mg2 12/08 23:54 Body Mass Index 22.67 (54.43 kg, 154.94 cm) mg2 ED Course: 12/08 23:45 Patient arrived in ED. cf2 23:47 Shaka Gavin PA is PHCP. cp 23:47 Rafiq Isidro MD is Attending Physician. cp 23:48 Pan Arshad RN is Primary Nurse. mg2 23:50 Triage completed. sg 23:51 Arm band placed on. sg 23:55 Patient has correct armband on for positive identification. mg2 23:55 No provider procedures requiring assistance completed. mg2 12/09 00:05 Inserted saline lock: 20 gauge in right antecubital area, using aseptic technique. mg2 Blood collected. 01:15 Flu and/or RSV swab sent to lab. Strep swab sent to lab. covid swab sent to lab. mg2 02:03 IV discontinued, intact, bleeding controlled, No redness/swelling at site. Pressure mg2 dressing applied. Administered Medications: 00:17 Drug: Ibuprofen 800 mg Route: PO; mg2 01:25 Follow up: Response: No adverse reaction; Marked relief of symptoms; Temperature is mg2 decreased; Pain is decreased 00:17 Drug: NS 0.9% (30 ml/kg) 30 ml/kg Route: IV; Rate: bolus; Site: right antecubital; mg2 01:35 Follow up: Response: No adverse reaction; IV Status: Completed infusion; IV Intake: mg2 1600ml 00:35 Not Given (Physician Discretion): NS 0.9% 1000 ml IV at 1 bolus Per protocol; 1000 mL mg2 bolus 01:32 Drug: Rocephin - (cefTRIAXone) 1 grams Route: IVPB; Infused Over: 30 mins; Site: right mg2 antecubital; 02:02 Follow up: Response: No adverse reaction; IV Status: Completed infusion mg2 Intake: 01:35 IV: 1600ml; Total: 1600ml. mg2 Outcome: 02:02 Discharge ordered by . rn 02:03 Discharged to home ambulatory. mg2 02:03 Condition: stable 02:03 Discharge instructions given to patient, Instructed on discharge instructions, follow up and referral plans. medication usage, Demonstrated understanding of instructions, follow-up care, medications, Prescriptions given X 2. 02:10 Patient left the ED. mg2 Signatures: Jose Armando Deleon RN RN sg Nieto, Roman, MD MD rn Page, Corey, PA PA cp Gardose, Michele, RN RN mg2 Lucille Lopez cf2 Corrections: (The following items were deleted from the chart) 00:35 00:18 NS 0.9% 1000 ml IV at 1 bolus in right antecubital mg2 mg2
[2019-12-10 03:10] LABS: Urine Blood TRACE (NEG); Urine Glucose NEGATIVE (NEG); Urine Protein NEGATIVE (NEG); Urine Specific Gravity 1.015 (1.005-1.030)
[2019-12-10 03:22] VITALS: BP 100/60; TEMP 99.7; O2SAT 100
== END 2019-12-10 02:10 | disposition home or self-care (01) ==
LOC: ER 23:43
DX: N39.0 Urinary tract infection, site not specified (principal); J02.9 Acute pharyngitis, unspecified; Z20.828 Contact with and (suspected) exposure to other viral communicable diseases
CPT/HCPCS: 96365; 87040 ×2; 87070; 87088; 85025; 87086; 80048; 36415; 86308; 81025; 87081; 83605; 84145; 87804 ×2; 99284; U0003; J0696; J7030; 81003; 81015